=== PATIENT | female | born 1995 | race African-American/Black ===

== ENCOUNTER 2018-04-16 22:06 | Inpatient (IN) | payer OTHER ==
[2018-04-16] MEDS ORDERED: IBUPROFEN 200 MG TAB PO PRN (23:02)
[2018-04-16] MEDS ORDERED: ACETAMINOPHEN 500 MG TAB PO PRN (23:02)
[2018-04-16] MEDS ORDERED: DOCUSATE NA/SENNA CONC 1 TAB PO PRN (23:02)
[2018-04-16] MEDS ORDERED: Oxycodone HCl/Acetaminophen 1 TAB TAB PO PRN (23:02)
[2018-04-16 23:36] LABS: RPR Titer ND
[2018-04-16 23:46] LABS: Absolute Lymphocytes (CBC) 1.7 K/uL (0.7-4.9); Absolute Monocytes 0.3 K/uL (0.1-1.3); Absolute Neutrophil 7.1 K/uL (1.8-8.0); Basophils % 0.2 % (0-1.3); Eosinophils % 0.5 % (0-4.4); Hematocrit 31.5 % (36.0-45.0); Lymphocytes % 18.6 % (15.3-44.8); MCH 25.9 pg (27.0-35.0); MCV 79.2 fL (80-100); MPV 9.6 fL (7.6-11.3); Monocytes % 3.7 % (3.3-12.3); RBC Red Blood Cell Count 3.97 M/uL (3.86-4.86)
[2018-04-17] MEDS: Oxycodone HCl/Acetaminophen 1 TAB TAB PO PRN ×3 (00:30→21:38)
[2018-04-17 02:19] VITALS: BMI 33.3
--- NOTE | 2018-04-17 03:22 | PREOPHP ---
Date of Admission: 04/16/2018 This is a 23-year-old multiparous female, 5, para 4, 38 weeks gestation who was brought in by ambulance after a home delivery. Placenta was also delivered at home. Baby was in the 7-pound rang e male, is feeding right meal form of a formula bottle and doing quite well. The patient's lochia is normal. Inspection of the perineum shows just a very superficial tear in the mucosal tissue, but it is not even bleeding and requires no stitches. Her labs are all pending. Vital signs are all nirav l. She is alert and responsive. She will be admitted of course and pediatrics has been notified. S he knows the baby will probably have to stay 48 hours since it was a home delivery, but otherwise, alverto so is in no pain and having no problems at this time. Final Diagnosis: Intrauterine gestation, 38 weeks. Precipitous delivery, doing well. GARRISON/DIANE Voice ID: [id number]
[2018-04-17 22:21] LABS: RPR (Rapid Plasma Reagin) NON-REACT (NON-REACT)
--- NOTE | 2018-04-18 05:31 | DS ---
Hospital Course: Multiparous female, at 38 weeks' gestation, precipitous home delivery, brought to [facility] in an ambulance. Delivery of the placenta also had occurred. Inspection of the perin eum showed no lacerations worthy of suturing. Lochia was minimal. She is Rh positive. Rubella stat us is unknown at this point. We will get our office records and see. She will be dismissed either l tonia this evening or tomorrow morning to report back to my office in 6 weeks for followup, to report any temperature elevation of 100 degrees or greater, severe pain, heavy bleeding, or any other type o f abnormalities. She says she has already had her Tdap shot and flu shots. Final Diagnoses: Intrauterine gestation, 38 weeks. Precipitous delivery. GARRISON/DIANE Voice ID: [id number] Report ID: [id number]
[2018-04-18] MEDS: Oxycodone HCl/Acetaminophen 1 TAB TAB PO PRN (06:13)
[2018-04-18] MEDS ORDERED: MEASLES,MUMPS,RUBELLA VAC 0.5ML SUBQ ONE (10:23)
[2018-04-18 10:34] VITALS: BP 123/71; TEMP 98.1
[2018-04-20 03:50] LABS: HBsAG Nonreactive (Nonreactive)
== END 2018-04-18 12:20 | disposition home or self-care (01) | DRG 833 ==
LOC: L&D 22:06 → 2ND-WC 23:01
PROVIDERS: ADMIT Specialist; ATTEND Specialist
DX: O62.3 Precipitate labor (principal); Z3A.38 38 weeks gestation of pregnancy; Z37.0 Single live birth
CPT/HCPCS: 36415; 85025; 86592; 86762; 86901; 87340; 99218; G0433

== ENCOUNTER 2019-04-04 05:58 | Inpatient (IN) | payer OTHER ==
[2019-04-04] MEDS ORDERED: BUTORPHANOL 1 MG/ML INJ ONE (06:27)
[2019-04-04] MEDS ORDERED: PROMETHAZINE 25 MG/ML VIAL ONE (06:27)
[2019-04-04] MEDS ORDERED: OXYTOCIN/LR 20 UNIT/1,000 ML BAG IV ONE (06:43)
[2019-04-04] MEDS ORDERED: METHYLERGONOVINE 0.2MG/ML AMP IM ONE (06:43)
[2019-04-04] MEDS ORDERED: LIDOCAINE 1% MPF 30 ML VIAL ONE (06:46)
[2019-04-04] MEDS ORDERED: ONDANSETRON 4 MG (ODT) TAB PO PRN (06:55)
[2019-04-04] MEDS ORDERED: METHYLERGONOVINE 0.2MG/ML AMP IM PRN (06:55)
[2019-04-04] MEDS ORDERED: METHYLERGONOVINE 0.2 MG TAB PO PRN (06:55)
[2019-04-04] MEDS ORDERED: ACETAMINOPHEN 500 MG TAB PO PRN (06:55)
[2019-04-04] MEDS ORDERED: CARBOPROST TROME 250 MCG/ML IM PRN (06:55)
[2019-04-04] MEDS ORDERED: IBUPROFEN 200 MG TAB PO PRN (06:55)
[2019-04-04] MEDS ORDERED: Ringers Lactate 1,000 ML IV PRN (06:59)
[2019-04-04] MEDS ORDERED: OXYTOCIN/LR 20 UNIT/1,000 ML BAG IV SCH (07:00)
[2019-04-04] MEDS ORDERED: Ringers Lactate 1,000 ML IV SCH (07:00)
[2019-04-04 07:21] LABS: Absolute Lymphocytes (CBC) 2.4 K/uL (0.7-4.9); Basophils % 0.3 % (0-1.3); Hematocrit 31.4 % (36.0-45.0); Lymphocytes % 29.1 % (15.3-44.8); MPV 9.7 fL (7.6-11.3); RBC Red Blood Cell Count 4.02 M/uL (3.86-4.86)
[2019-04-04 12:08] VITALS: BMI 34.0
[2019-04-04] MEDS ORDERED: INFLUENZA VACCINE (for 3y+) 0.5 ML DOSE IMVAC ONE (15:00)
--- NOTE | 2019-04-04 19:27 | OP ---
Surgeon: Luis Miguel Wade MD Ms. Fernandes is a 24-year-old black female, approximately 37 weeks' gestation, followed by Dr. Gann during this . She is admitted at approximately 37+ weeks' gestation in active rapidly advancing labor, noted to be 4 cm, completely effaced on admission. First stage of labor was approximately a 45 minutes, second stage of labor 6 minutes. She delivered by spontaneous controlled vaginal delivery a 5 pounds 7 ounces female infant, Apgars 9 and 9. Cord around the neck x1. The was delivered vertex OA over an intact perineum. After delayed cord clamping, cord was clamped, cut, and the infant placed on mother's upper abdomen. Cord blood was obtained. Placenta was spontaneously expelled and appeared to be intact. Estimated total blood loss was less than 300 cc. She tolerated all procedures well. Received 1 mg Stadol , 12.5 mg of Phenergan IV for analgesia prior to delivery. She was given 1 dose of Methergine IM postdelivery because of grand multiparity and rapid labor. ADELE/DIANE Voice ID: [id number] Report ID: [id number] MTDD
[2019-04-05 02:40] LABS: RPR (Rapid Plasma Reagin) NON-REACT (NON-REACT)
[2019-04-05 07:25] VITALS: BP 109/58; TEMP 98
[2019-04-05] MEDS ORDERED: Tdap (Diph,Pertuss(Acell),Tet Vac) 0.5 ML SYR IMVAC ONE (07:42)
--- NOTE | 2019-04-05 08:25 | PREOPHP ---
Date of Admission: 04/04/2019 Ms. Fernandes is a 30-year-old black female, 5, para 4-0-0-4, followed by Dr. Gann during this with no apparent problems, who is now at approximately 37+ weeks gestation. She presents with contractions since 3 o'clock. She denies any significant bleeding or gross rupture of membranes . Past Medical History: Please see record. Family History: Please see record. Review of Systems: She reports no recent, cough, cold, fever, or chills. No recent nausea or vomiting. No urine or bow el issues. has been active. Physical Examination: General: Reveals a black female in moderate discomfort. Neck: Supple without adenopathy or thyromegaly. Lungs: Clear. Cardiac: Regular rate and rhythm without murmurs. Breasts: Not examined. Abdomen: Estimated weight 6 plus 7 pounds. Pelvic: Cervix noted to be approximately 4 cm, com pletely effaced, vertex presentation. Extremities: 1+ lower extremity edema. Impression: Term , active labor. Plan: The patient admitted for delivery. Prefers IV analgesia during her labor course. ADELE/DIANE Voice ID: [id number]
[2019-04-05] MEDS ORDERED: INFLUENZA VACCINE (for 3y+) 0.5 ML DOSE IMVAC ONE (09:00)
--- NOTE | 2019-04-06 04:47 | DS ---
Date of Discharge: 04/05/2019 Final Hospital Discharge Diagnoses: 1.37+ week , delivered, grand multiparity. 2.Iron deficiency anemia. Complications: None. Procedures: Spontaneous controlled vaginal delivery of viable male . Hospital Course: The patient is a 24-year-old black female, 6, para 4-0-1-4 at 37+ weeks ges tation, who had an uneventful labor and delivery of a 5-pound 7-ounce male . She was dismissed on the first day, ambulatory, on a select diet with routine post vaginal delivery activit y restrictions, to continue taking her vitamins. She had an admission hemoglobin and hemato crit 10.3 and 31.4, nonreactive RPR, is Rh positive blood type. She was dismissed with the usual pos t vaginal delivery activity restrictions. ADELE/DIANE Voice ID: [id number] Report ID: [id number]
[2019-04-09 06:13] LABS: HBsAG Nonreactive (Nonreactive)
== END 2019-04-05 11:45 | disposition home or self-care (01) | DRG 807 ==
LOC: L&D 05:58 → 2ND-WC 06:38
PROVIDERS: ADMIT Specialist; ATTEND Specialist
PROC: 10E0XZZ Delivery of Products of Conception, External Approach (ICD-10-PCS; principal; 2019-04-04)
DX: O69.81X0 Labor and delivery complicated by cord around neck, without compression, not applicable or unspecified (principal); Z37.0 Single live birth; O99.02 Anemia complicating childbirth; D50.9 Iron deficiency anemia, unspecified; Z3A.37 37 weeks gestation of pregnancy
CPT/HCPCS: 36415; 85014; 85025; 86592; 86901; 87340; 90471; 90715; J0595; J2210; J2550; J2590; Q2035

== ENCOUNTER 2019-08-08 12:55 | Emergency (ER) | payer OTHER, SELFPAY ==
--- OUTSIDE RECORDS SUMMARY | 2019-08-08 12:57 | XMS REPORT ---
:1995 [facility] Address [address] [place] [address] [address]. H[address] [place] [address] Care Team Providers Name Role Phone Unavailable Unavailable Unavailable Problems This patient has no known problems. Allergies, Adverse Reactions, Alerts This patient has no known allergies or adverse reactions. Medications This patient has no known medications.
--- NOTE | 2019-08-08 13:57 | EDPHYS ---
Physician Documentation [facility] Name: Anisa Fernandes Age: 24 yrs Sex: Female : 1995 Arrival Date: 08/08/2019 Time: 12:57 Bed 11 Private MD: None, None ED Physician Raul Whitley HPI: 08/08 13:57 This 24 yrs old Black Female presents to ER via Ambulatory with complaints of Insect kb Bite. 13:57 The patient has not experienced similar symptoms in the past. The patient has not kb recently seen a physician. 13:57 The patient presents with an abscess of the anterior aspect of left shoulder. kb Description: erythematous, swollen. Onset: The symptoms/episode began/occurred 3 day(s) ago. Possible cause(s): spider bite. Associated signs and symptoms: Pertinent positives: erythema, swelling. Modifying factors: the symptoms are alleviated by nothing, the symptoms are aggravated by nothing. Severity of symptoms: At their worst the symptoms were mild, in the emergency department the symptoms are unchanged. 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 - Coronavirus screen:: The patient has NOT traveled to [place], [place], or [place] in the past 14 days. The patient has NOT had contact with known/suspected case of Coronavirus?. - Social history:: Smoking status: Patient reports the use of cigarette tobacco products, denies chronic smoking, but will smoke occasionally. - Ebola Screening: : Patient negative for fever greater than or equal to 101.5 degrees Fahrenheit, and additional compatible Ebola Virus Disease symptoms Patient denies exposure to infectious person Patient denies travel to an Ebola-affected area in the 21 days before illness onset No symptoms or risks identified at this time. ROS: 13:54 Constitutional: Negative for fever, chills, and weight loss, Cardiovascular: Negative kb for chest pain, palpitations, and edema, Respiratory: Negative for shortness of breath, cough, wheezing, and pleuritic chest pain, Abdomen/GI: Negative for abdominal pain, nausea, vomiting, diarrhea, and constipation, Back: Negative for injury and pain, MS/Extremity: Negative for injury and deformity, Neuro: Negative for headache, weakness, numbness, tingling, and seizure. 13:54 Skin: Positive for abscess, of the anterior aspect of left shoulder. Exam: 13:56 Constitutional: This is a well developed, well nourished patient who is awake, alert, kb and in no acute distress. Head/Face: Normocephalic, atraumatic. Neck: Trachea midline, no thyromegaly or masses palpated, and no cervical lymphadenopathy. Supple, full range of motion without nuchal rigidity, or vertebral point tenderness. No Meningismus. Chest/axilla: Normal chest wall appearance and motion. Nontender with no deformity. No lesions are appreciated. Cardiovascular: Regular rate and rhythm with a normal S1 and S2. No gallops, murmurs, or rubs. Normal PMI, no JVD. No pulse deficits. Respiratory: Lungs have equal breath sounds bilaterally, clear to auscultation and percussion. No rales, rhonchi or wheezes noted. No increased work of breathing, no retractions or nasal flaring. Abdomen/GI: Soft, non-tender, with normal bowel sounds. No distension or tympany. No guarding or rebound. No evidence of tenderness throughout. MS/ Extremity: Pulses equal, no cyanosis. Neurovascular intact. Full, normal range of motion. Neuro: Awake and alert, GCS 15, oriented to person, place, time, and situation. Cranial nerves II-XII grossly intact. Motor strength 5/5 in all extremities. Sensory grossly intact. Cerebellar exam normal. Normal gait. 13:56 Skin: abscess, that is small, of the anterior aspect of left shoulder, with induration. Vital Signs: 13:24 BP 129 / 82; Pulse 66; Resp 18 S; Temp 98.4(O); Pulse Ox 100% on R/A; Weight 77.11 kg ca1 (R); Height 5 ft. 4 in. (162.56 cm) (R); Pain 4/10; 13:24 Body Mass Index 29.18 (77.11 kg, 162.56 cm) ca1 MDM: 13:27 Patient medically screened. kb 13:54 Differential diagnosis: abscess, cellulitis, insect bite. Data reviewed: vital signs, kb nurses notes. Data interpreted: Pulse oximetry: on room air is 100 %. Interpretation: normal. Counseling: I had a detailed discussion with the patient and/or guardian regarding: the historical points, exam findings, and any diagnostic results supporting the discharge/admit diagnosis, the need for outpatient follow up, a family practitioner, to return to the emergency department if symptoms worsen or persist or if there are any questions or concerns that arise at home. Administered Medications: 14:15 Drug: Bactrim (160 mg-800 mg (DS) 1 tablet Route: PO; ss 14:15 Follow up: Response: Medication administered at discharge. Disposition: 15:54 Co-signature as Attending Physician, Raul Whitley MD. rn Disposition: 08/08/19 13:58 Discharged to Home. Impression: Cutaneous abscess of left upper limb. - Condition is Stable. - Discharge Instructions: Skin Abscess, [id number]. - Prescriptions for Bactrim DS 800- 160 mg Oral Tablet - take 1 tablet by ORAL route every 12 hours for 7 days; 14 tablet. - Medication Reconciliation Form, Thank You Letter, Antibiotic Education, Prescription Opioid Use form. - Follow up: Private Physician; When: 2 - 3 days; Reason: Recheck today's complaints, Continuance of care, Re-evaluation by your physician. Follow up: Emergency Department; When: As needed; Reason: Worsening of condition. Signatures: Carrie Fernandes, [employer] Raul Whitley MD MD rn Smirch, Shelby, RN RN ss Acob, Cheryl, RN RN [facility] Corrections: (The following items were deleted from the chart) 14:16 13:58 08/08/2019 13:58 Discharged to Home. Impression: Cutaneous abscess of left upper ss limb. Condition is Stable. Forms are Medication Reconciliation Form, Thank You Letter, Antibiotic Education, Prescription Opioid Use. Follow up: Private Physician; When: 2 - 3 days; Reason: Recheck today's complaints, Continuance of care, Re-evaluation by your physician. Follow up: Emergency Department; When: As needed; Reason: Worsening of condition. kb
--- NOTE | 2019-08-08 13:57 | ER ---
Nurse's Notes [facility] Name: Anisa Fernandes Age: 24 yrs Sex: Female : 1995 Arrival Date: 08/08/2019 Time: 12:57 Bed 11 Private MD: None, None Diagnosis: Cutaneous abscess of left upper limb Presentation: 08/08 13:21 Presenting complaint: Patient states: Spider bite on my L upper arm a few days ago. Now ca1 it's throbbing and looks like it is infected. Denies fever. Transition of care: patient was not received from another setting of care. Onset of symptoms was August 08, 2019. Risk Assessment: Do you want to hurt yourself or someone else? Patient reports no desire to harm self or others. Initial Sepsis Screen: Does the patient meet any 2 criteria? No. Patient's initial sepsis screen is negative. Does the patient have a suspected source of infection? No. Patient's initial sepsis screen is negative. Care prior to arrival: None. 13:21 Method Of Arrival: Ambulatory ca1 13:21 Acuity: EDWIN 4 ca1 SOUND PERSON: 13:24 LMP 08/06/2019 ca1 Historical: - Allergies: 13:24 No Known Allergies; ca1 - Home Meds: 13:24 None [Active]; ca1 - PMHx: 13:24 None; ca1 - PSHx: 13:24 Tubal ligation; ca1 - Immunization history:: Adult Immunizations up to date, Last tetanus immunization: unknown. - Coronavirus screen:: The patient has NOT traveled to [place], [place], or [place] in the past 14 days. The patient has NOT had contact with known/suspected case of Coronavirus?. - Social history:: Smoking status: Patient reports the use of cigarette tobacco products, denies chronic smoking, but will smoke occasionally. - Ebola Screening: : Patient negative for fever greater than or equal to 101.5 degrees Fahrenheit, and additional compatible Ebola Virus Disease symptoms Patient denies exposure to infectious person Patient denies travel to an Ebola-affected area in the 21 days before illness onset No symptoms or risks identified at this time. Screenin:45 Abuse screen: Denies threats or abuse. Denies injuries from another. Nutritional ss screening: No deficits noted. Tuberculosis screening: Never had TB. Fall Risk None identified. Assessment: 13:45 General: Appears in no apparent distress. comfortable, Behavior is calm, cooperative. ss Pain: Complains of pain in anterior aspect of left shoulder Pain currently is 4 out of 10 on a pain scale. Quality of pain is described as tender. Neuro: Level of Consciousness is awake, alert. Respiratory: Airway is patent Respiratory effort is even, unlabored, Respiratory pattern is regular, symmetrical. GI: Patient currently denies diarrhea, nausea, vomiting. EENT: Nares Oral mucosa is moist. Throat is clear. Derm: Skin is intact, is healthy with good turgor, Skin is dry, Skin is pink, warm \T\ dry. normal. Musculoskeletal: Circulation, motion, and sensation intact. Range of motion: intact in all extremities, Swelling absent. Vital Signs: 13:24 BP 129 / 82; Pulse 66; Resp 18 S; Temp 98.4(O); Pulse Ox 100% on R/A; Weight 77.11 kg ca1 (R); Height 5 ft. 4 in. (162.56 cm) (R); Pain 4/10; 13:24 Body Mass Index 29.18 (77.11 kg, 162.56 cm) ca1 ED Course: 12:57 Patient arrived in ED. ag5 12:57 None, None is Private Physician. ag5 13:23 Triage completed. ca1 13:24 Arm band placed on right wrist. ca1 13:27 Carrei Fernandes FNP-C [facility]. kb 13:27 Raul Whitley MD is Attending Physician. kb 13:45 Patient has correct armband on for positive identification. Bed in low position. Call ss light in reach. 14:05 Ally Torres, WILDER is Primary Nurse. ss 14:15 No provider procedures requiring assistance completed. Patient did not have IV access ss during this emergency room visit. Administered Medications: 14:15 Drug: Bactrim (160 mg-800 mg (DS) 1 tablet Route: PO; ss 14:15 Follow up: Response: Medication administered at discharge. ss Outcome: 13:58 Discharge ordered by . kb 14:15 Discharged to home ambulatory. ss 14:15 Condition: good 14:15 Discharge instructions given to patient, Instructed on discharge instructions, follow up and referral plans. medication usage, Demonstrated understanding of instructions, follow-up care, medications, Prescriptions given X 1. 14:16 Patient left the ED. ss Signatures: Carrie Fernandes FNP-C [employer]-Ckb Ally Torres, RN RN ss AcHannah klein, RN RN ca1 Edie Ascencio ag5
[2019-08-08] MEDS ORDERED: SMZ./TMP. 800/160 MG TABLET ONE (14:10)
[2019-08-08 17:46] VITALS: BP 129/82; TEMP 98.4; O2SAT 100
== END 2019-08-08 14:16 | disposition home or self-care (01) ==
LOC: ER 12:55
DX: L02.414 Cutaneous abscess of left upper limb (principal)
CPT/HCPCS: 99283

== ENCOUNTER 2020-08-02 00:43 | Emergency (ER) | payer SELFPAY ==
--- OUTSIDE RECORDS SUMMARY | 2020-08-02 00:45 | XMS REPORT | Continuity of Care Document ---
:1995 Author Organization [facility] t Address [address] [place] [address] Care Team Providers Name Role Phone 1, Sleep Lab Bed Attending Clinician Unavailable Doctor Unassigned, Name Attending Clinician Unavailable Problems This patient has no known problems. Allergies, Adverse Reactions, Alerts This patient has no known allergies or adverse reactions. Medications This patient has no known medications. Procedures This patient has no known procedures. Encounters Start End Encounter Admission Attending Care Care Encounter Source Date/Time Date/Time Type Type Clinicians Facility Department ID 2019-02-06 2019-02-06 Telecommunication Tower Technician 1, Gray [facility] [id number] 14:31:28 17:01:28 Visit Sleep Lab [place] [id number] [facility] [id number] [place] [id number] 2019-02-06 2019-02-06 Orders Doctor REJI [id number] 00:00:00 00:00:00 Only Unassigned, ELE[place] [id number] [place] [facility] [id number] Results This patient has no known results.
[2020-08-02] MEDS ORDERED: IBUPROFEN 400 MG TAB ONE (04:11)
--- NOTE | 2020-08-02 04:25 | ER ---
Nurse's Notes [facility] Name: Anisa Fernandes Age: 25 yrs Sex: Female : 1995 Arrival Date: 08/02/2020 Time: 00:47 Bed 26 Private MD: Diagnosis: Dental caries;Tinea pedis Presentation: 08/02 01:34 Chief complaint: Patient states: Reports pain to wisdom teeth, "All of my wisdom teeth lp1 are bad", pain for the past 2 weeks; states headache due to jaw pain; Reports fungus to bilateral feet, itching and burning to skin; Denies any fever. Ebola Screen: No symptoms or risks identified at this time. Risk Assessment: Do you want to hurt yourself or someone else? Patient reports no desire to harm self or others. Onset of symptoms was August 02, 2020. 01:34 Method Of Arrival: Ambulatory lp1 01:34 Acuity: EDWIN 4 lp1 01:38 Coronavirus screen: Client denies travel out of the [place] in the last 14 days. At this lp1 time, the client does not indicate any symptoms associated with coronavirus-19. Initial Sepsis Screen: Does the patient meet any 2 criteria? No. Patient's initial sepsis screen is negative. Does the patient have a suspected source of infection? No. Patient's initial sepsis screen is negative. 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 - Social history:: Smoking status: Patient reports the use of cigarette tobacco products, denies chronic smoking, but will smoke occasionally. Screenin:38 Abuse screen: Denies threats or abuse. Denies injuries from another. Nutritional lp1 screening: No deficits noted. Tuberculosis screening: No symptoms or risk factors identified. Fall Risk None identified. Assessment: 03:02 General: Appears in no apparent distress. Behavior is calm, cooperative, appropriate fu for age, Denies fever, feeling ill, fatigue, chills. Pain: Complains of pain in jaw Pain does not radiate. Pain currently is 9 out of 10 on a pain scale. Quality of pain is described as aching, Pain began about 2 weeks ago Noted to be guarding. Neuro: Level of Consciousness is awake, alert, obeys commands, Oriented to person, place, time, situation, [employer] are equal bilaterally Moves all extremities. Gait is steady, Speech is normal, Facial symmetry appears normal. Cardiovascular: Denies chest pain, nausea, vomiting. Respiratory: Airway is patent Respiratory effort is even, unlabored, Respiratory pattern is regular. GI: Patient currently denies diarrhea, nausea, vomiting. EENT: Reports pain in right jaw and left jaw Pain is 9 out of 10 on a pain scale. since 2 weeks ago. Derm: Reports peeling, itching and burning between toes of both feet. Musculoskeletal: No signs and/or symptoms reported regarding the musculoskeletal system. 04:10 Reassessment: Patient appears in no apparent distress at this time. Patient and/or fu family updated on plan of care and expected duration. Pain level reassessed. Patient is alert, oriented x 3, equal unlabored respirations, skin warm/dry/pink. Vital Signs: 01:38 BP 120 / 72; Pulse 69; Resp 16; Temp 97.9(TE); Pulse Ox 100% on R/A; Weight 77.11 kg lp1 (R); Height 5 ft. 4 in. (162.56 cm); Pain 9/10; 03:08 BP 122 / 87; Pulse 63; Resp 18; Temp 98.4(O); Pulse Ox 100% on R/A; Pain 9/10; fu 04:00 BP 115 / 84; Pulse 62; Resp 18; Pulse Ox 100% on R/A; fu 01:38 Body Mass Index 29.18 (77.11 kg, 162.56 cm) lp1 ED Course: 00:47 Patient arrived in ED. es 01:37 Triage completed. lp1 01:37 Arm band placed on. lp1 02:53 Bo Victoria, WILDER is Primary Nurse. fu 02:55 Eric Lawrence MD is Attending Physician. 7 03:09 Patient has correct armband on for positive identification. Pulse ox on. NIBP on. fu 03:09 Warm blanket given. fu 04:23 Juan Brown DDS is Referral Physician. 7 04:24 Luis Miguel Montalvo DPM is Referral Physician. [facility] 04:35 No provider procedures requiring assistance completed. fu 04:35 Patient did not have IV access during this emergency room visit. fu Administered Medications: 04:00 Drug: Ibuprofen 800 mg Route: PO; fu 04:36 Follow up: Response: Pain is decreased fu Outcome: 04:24 Discharge ordered by . [facility] 04:35 Discharged to home ambulatory. fu 04:35 Condition: good 04:35 Discharge instructions given to patient, Instructed on discharge instructions, follow up and referral plans. Demonstrated understanding of instructions, follow-up care, medications, Prescriptions given X 3. 04:37 Patient left the ED. fu Signatures: [place] Lovell Laura, RN RN 1 Bo Victoria RN RN fu Eric Lawrence MD MD [facility]
--- NOTE | 2020-08-02 04:25 | EDPHYS ---
Physician Documentation [facility] Name: Anisa Fernandes Age: 25 yrs Sex: Female : 1995 Arrival Date: 08/02/2020 Time: 00:47 Bed 26 Private MD: ED Physician Eric Lawrence HPI: 08/02 04:14 This 25 yrs old Black Female presents to ER via Ambulatory with complaints of Toothache.mh7 04:14 The patient presents with pain. The problem is located in the right lower tooth. mh7 04:15 Onset: The symptoms/episode began/occurred 2 week(s) ago. Duration: The symptoms are mh7 continuous, and are unchanged since they started. Modifying factors: The symptoms are alleviated by nothing, the symptoms are aggravated by cold fluids. Associated signs and symptoms: Pertinent positives: pain, Pertinent negatives: anorexia, chills, dysphagia, fever, inability to eat, nausea, redness in area, swelling, vomiting. Severity of symptoms: At their worst the symptoms were moderate, 7 day(s) ago, in the emergency department the symptoms are unchanged. Also complains of itching fungal infection between toes of both feet for 3-4 weeks.. 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 - Social history:: Smoking status: Patient reports the use of cigarette tobacco products, denies chronic smoking, but will smoke occasionally. ROS: 04:15 Constitutional: Negative for fever, chills, and weight loss, Eyes: Negative for injury, mh7 pain, redness, and discharge, Neck: Negative for injury, pain, and swelling, Cardiovascular: Negative for chest pain, palpitations, and edema, Respiratory: Negative for shortness of breath, cough, wheezing, and pleuritic chest pain, Abdomen/GI: Negative for abdominal pain, nausea, vomiting, diarrhea, and constipation, Back: Negative for injury and pain, : Negative for injury, bleeding, discharge, and swelling, Neuro: Negative for headache, weakness, numbness, tingling, and seizure, Psych: Negative for depression, anxiety, suicide ideation, homicidal ideation, and hallucinations, Allergy/Immunology: Negative for hives, rash, and allergies, Endocrine: Negative for neck swelling, polydipsia, polyuria, polyphagia, and marked weight changes, Hematologic/Lymphatic: Negative for swollen nodes, abnormal bleeding, and unusual bruising. Exam: 04:15 Constitutional: This is a well developed, well nourished patient who is awake, alert, mh7 and in no acute distress. Head/Face: Normocephalic, atraumatic. 04:15 Neck: Trachea midline, no thyromegaly or masses palpated, and no cervical lymphadenopathy. Supple, full range of motion without nuchal rigidity, or vertebral point tenderness. No Meningismus. Chest/axilla: Normal chest wall appearance and motion. Nontender with no deformity. No lesions are appreciated. Cardiovascular: Regular rate and rhythm with a normal S1 and S2. No gallops, murmurs, or rubs. Normal PMI, no JVD. No pulse deficits. Respiratory: Lungs have equal breath sounds bilaterally, clear to auscultation and percussion. No rales, rhonchi or wheezes noted. No increased work of breathing, no retractions or nasal flaring. Abdomen/GI: Soft, non-tender, with normal bowel sounds. No distension or tympany. No guarding or rebound. No evidence of tenderness throughout. Back: No spinal tenderness. No costovertebral tenderness. Full range of motion. 04:15 MS/ Extremity: Pulses equal, no cyanosis. Neurovascular intact. Full, normal range of motion. 04:15 Skin: Warm, dry with normal turgor. Normal color with no rashes, no lesions, and no evidence of cellulitis. Neuro: Awake and alert, GCS 15, oriented to person, place, time, and situation. Cranial nerves II-XII grossly intact. Motor strength 5/5 in all extremities. Sensory grossly intact. Cerebellar exam normal. Normal gait. Psych: Awake, alert, with orientation to person, place and time. Behavior, mood, and affect are within normal limits. 04:15 ENT: External ear(s): are unremarkable, Ear canal(s): are normal, clear, TM's: are normal, Nose: is normal, Mouth: is normal, Posterior pharynx: is normal, airway is patent, Dental exam: dental caries, that is moderate, diffusely, pain, that is moderate, specifically in the lower right third molar (#32), Voice: is normal, Breath odor: is normal. 04:15 Musculoskeletal/extremity: scaling, maceration, fissuring between toes of both feet right greater than left.. Vital Signs: 01:38 BP 120 / 72; Pulse 69; Resp 16; Temp 97.9(TE); Pulse Ox 100% on R/A; Weight 77.11 kg lp1 (R); Height 5 ft. 4 in. (162.56 cm); Pain 9/10; 03:08 BP 122 / 87; Pulse 63; Resp 18; Temp 98.4(O); Pulse Ox 100% on R/A; Pain 9/10; fu 04:00 BP 115 / 84; Pulse 62; Resp 18; Pulse Ox 100% on R/A; fu 01:38 Body Mass Index 29.18 (77.11 kg, 162.56 cm) lp1 MDM: 04:15 Differential diagnosis: dental caries, gingivitis, dental abscess, pericoronitis, mh7 aphthous ulcers, acute necrotizing ulcerative gingivitis, gingivostomatitis. Data reviewed: vital signs, nurses notes. Data interpreted: Pulse oximetry: on room air is 100 %. Interpretation: normal. 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 Response to treatment: the patient's symptoms have markedly improved after treatment. 04:24 Patient medically screened. [facility] Administered Medications: 04:00 Drug: Ibuprofen 800 mg Route: PO; fu 04:36 Follow up: Response: Pain is decreased fu Disposition: 08/02/20 04:24 Discharged to Home. Impression: Dental caries, Tinea pedis. - Condition is Stable. - Discharge Instructions: Athlete's Foot, Xsll-sz-Palv, Dental Pain, Ayfp-lo-Wcwa, Dental Caries, Jdzr-bx-Bxhz. - Prescriptions for Amoxicillin 500 mg Oral Capsule - take 1 capsule by ORAL route every 8 hours for 10 days; 30 tablet. Clotrimazole 1 % Topical Cream - Apply to affected area 1 application by TOPICAL route every 12 hours; 15 gram. Ibuprofen 800 mg Oral Tablet - take 1 tablet by ORAL route every 8 hours As needed take with food; 15 tablet. - Medication Reconciliation Form, Thank You Letter, Antibiotic Education, Prescription Opioid Use form. - Follow up: Juan Brown DDS; When: 1 - 2 days; Reason: Worsening of condition, Recheck today's complaints. Follow up: Luis Miguel Montalvo DPM; When: 1 - 2 days; Reason: Worsening of condition, Recheck today's complaints. - Problem is an ongoing problem. - Symptoms have improved. Signatures: Celia Flores RN RN lp1 Bo Victoria RN RN Eric Macedo MD MD mh7 Corrections: (The following items were deleted from the chart) 04:37 04:24 08/02/2020 04:24 Discharged to Home. Impression: Dental caries; Tinea pedis. fu Condition is Stable. Forms are Medication Reconciliation Form, Thank You Letter, Antibiotic Education, Prescription Opioid Use. Follow up: Juan Brown; When: 1 - 2 days; Reason: Worsening of condition, Recheck today's complaints. Follow up: Luis Miguel Montalvo; When: 1 - 2 days; Reason: Worsening of condition, Recheck today's complaints. Problem is an ongoing problem. Symptoms have improved. mh7
[2020-08-02 04:41] VITALS: O2SAT 100
[2020-08-02 04:43] VITALS: TEMP 98.4
[2020-08-02 04:44] VITALS: BP 115/84
== END 2020-08-02 04:37 | disposition home or self-care (01) ==
LOC: ER 00:43
DX: K02.9 Dental caries, unspecified (principal); B35.3 Tinea pedis; F17.210 Nicotine dependence, cigarettes, uncomplicated
CPT/HCPCS: 99283

== ENCOUNTER 2022-01-30 22:18 | Emergency (ER) | payer SELFPAY ==
--- OUTSIDE RECORDS SUMMARY | 2022-01-30 22:21 | XMS REPORT | Continuity of Care Document ---
:1995 Author Organization [facility] t Address [address] [place] [address] Care Team Providers Name Role Phone Pcp, Does Not Have A Primary Care Physician Sam CAREY Attending Clinician Doctor Unassigned, Name Attending Clinician Unavailable Baldomero TAYLOR Attending Clinician Unavailable YE Attending Clinician Unavailable 1, Sleep Lab Bed Attending Clinician Unavailable Mar Clark Attending Clinician Payers Payer Name Policy Type Policy Number Effective Date Expiration Date [facility] [id number] 2019 [facility] MEDICAID 00:00:00 Problems Condition Condition Condition Status Onset Resolution Last Treating Co mments Source Name Details Category Date Date Treatment Clinician Date Obesity Obesity Disease Active 2018-07 Univers (BMI (BMI 1-21 ity of 30-39.9) 30-39.9) 00:00: [place] [address] Medical Branch Multiparou Multiparou Disease Active 2018-07 U nivers s s 1-20 ity of 00:00: [place] [address] Medical Branch Encounter Encounter Disease Active 2018-07 Overview: Univers for for 07-10 Formattin ity of sterilizat sterilizat 00:00: g of this [place] ion ion 00 note Medical might be Branch different from the original. Added automatic ally from request for surgery [id number] Allergies, Adverse Reactions, Alerts Allergy Allergy Status Severity Reaction(s) Onset Inactive Treating Comm ents Source Name Type Date Date Clinician NO KNOWN Drug Active [facility] ALLERGIE Class ity of S [facility] Social History Social Habit Start Date Stop Date Quantity Comments Source History of tobacco Cigarette Smoker University of use [facility] History SDOH University o f [facility] SDOH University o f Alcohol Std Drinks [place] [facility] Branch History SDOH University o f Alcohol Binge [facility] Branch Exposure to Not sure University of SARS-CoV-2 (event) [facility] Alcohol intake 2021-04-10 2021-04-10 Current drinker Unive rsity of 00:00:00 00:00:00 of alcohol [place] Medical (finding) Branch Alcohol Comment 2019-05-29 2019-05-29 Occasional Universit y of 00:00:00 00:00:00 [facility] Cigarettes smoked 2019-05-03 2019-05-03 [facility] ity of current (pack per 00:00:00 00:00:00 [facility] ) - Reported Branch Tobacco use and 2019-05-03 2019-05-03 Never used Universit y of exposure 00:00:00 00:00:00 [facility] Sex Ass[birth year] Universit y of 00:00:00 00:00:00 [facility] Smoking Status Start Date Stop Date Source Unknown if ever smoked [facility] Heavy tobacco smoker 2019-05-03 00:00:00 [facility] Medications Ordered Filled Start Stop Current Ordering Indication Dosage Frequency Signature Comments Components Source Medication Medication Date Date Medication? Clinician (SIG) Name Name dexamethaso 2020-07 No 10mg 10 mg, Uni vers ne 04-10 Intramuscu ity of (DECADRON 00:00: 23:18 lar, ONCE, [place] PHOSPHATE) 00 :00 1 dose, On Med ical injection [facility] Branch 10 mg 04/10/21 at 1900, STAT ketorolac 2020-07 No 60mg 60 mg, Unive rs (TORADOL) 04-10 Intramuscu ity of injection 00:00: 23:18 lar, ONCE, [place] 60 mg 00 :00 1 dose, On Medical Sat Branch 04/10/21 at 1900, REGGIE
Fa culty member approving Restricted medication : EMERGENCY ROOM, ibuprofen 2020-07 Yes [id number] 800mg Take 1 Univers 800 mg 0-02 tablet by ity of tablet 00:00: mouth [place] 00 every 8 Medical (eight) Branch hours as needed for Pain (scale 4-6). methocarbam 2020-07 Yes [id number] 750mg Take 1 Univers oL 750 mg 0-02 tablet by ity o f tablet 00:00: mouth 4 [place] 00 (four) Medical times Branch daily as needed for Pain (scale 7-10). predniSONE 2020-07- No [id number] 40mg Take 2 Univers 20 mg 0-02 10-08 tablets by ity of tablet 00:00: 04:59 mouth [place] 00 :00 daily for Medical 5 days. Branch ibuprofen 2018-07 Yes [id number] 800mg Take 1 Univers 800 mg 1-21 tablet by ity of tablet 00:00: mouth [place] 00 every 6 Medical (six) Branch hours as needed for Pain (scale 4-6). HYDROcodone 2018-07 Yes [id number] 1{tbl} Take 1 Univers -acetaminop 1-21 tablet by ity of hen 5-325 00:00: mouth [place] mg tablet 00 every 6 Medical (six) Branch hours as needed for Pain (scale 7-10). ibuprofen 2018-07 Yes [id number] 800mg Take 1 Univers 800 mg 1-21 tablet by ity of tablet 00:00: mouth [place] 00 every 6 Medical (six) Branch hours as needed for Pain (scale 4-6). HYDROcodone 2018-07 Yes [id number] 1{tbl} Take 1 Univers -acetaminop 1-21 tablet by ity of hen 5-325 00:00: mouth [place] mg tablet 00 every 6 Medical (six) Branch hours as needed for Pain (scale 7-10). 2014-07 Yes 1{tbl} Take 1 Tab U nivers multivitami 1-06 by mouth ity of n ( [place] VITAMIN[place] 00 Medical tablet Branch 2014-07 Yes 1{tbl} Take 1 Tab U nivers multivitami 1-06 by mouth ity of n ( [place] VITAMIN) 00 Medical tablet Branch Vital Signs Vital Name Observation Time Observation Value Comments Source Systolic blood 2021-04-10 23:26:49 138 mm[Hg] Univer sity of pressure [facility] Diastolic blood 2021-04-10 23:26:49 98 mm[Hg] Unive rsity of pressure [facility] Heart rate 2021-04-10 23:26:49 86 /min Universi ty [facility] Body temperature 2021-04-10 23:26:49 36.28 [facility] Respiratory rate 2021-04-10 23:26:49 16 /min [facility] Body weight 2021-04-10 22:39:00 81.647 kg Universi ty [facility] BMI 2021-04-10 22:39:00 30.42 kg/m2 [facility] Oxygen saturation in 2021-04-10 22:39:00 100 /min [facility] Arterial blood by [facility] [place] Pulse oximetry Branch BP Systolic 2022-01-18 13:24:00 114 mm[Hg] BP Diastolic 2022-01-18 13:24:00 84 mm[Hg] Weight Measured 2022-01-18 13:24:00 182.40 pounds Height Measured 2022-01-18 13:24:00 64.01 inches Body Temperature 2022-01-18 13:24:00 98.40 degrees Heart Rate 2022-01-18 13:24:00 67.00 /min Respiratory Rate 2022-01-18 13:24:00 24.00 /min BP Systolic 2018-08-17 11:54:00 110 mm[Hg] BP Diastolic 2018-08-17 11:54:00 56 mm[Hg] Weight Measured 2018-08-17 11:54:00 177.00 pounds Height Measured 2018-08-17 11:54:00 64.01 inches Body Temperature 2018-08-17 11:54:00 98.30 degrees Heart Rate 2018-08-17 11:54:00 85.00 /min Respiratory Rate 2018-08-17 11:54:00 16.00 /min Procedures Procedure Date / Time Performed Performing Clinician [facility] e NOTICE OF PRIVACY 2021-04-10 22:30:00 Doctor Unassigned, No [facility] Name Medical [facility] CONSENT/REFUSAL FOR 2021-04-10 22:29:42 Doctor Unassigned, No [facility] DIAGNOSIS AND Name Medical [facility] TREATMENT SLEEP STUDY DATA 2019-02-06 05:01:00 Doctor Pako, No Unive [facility] [place] REPORT Name [facility] Plan of Care Planned Activity Planned Date Details Comments Source Goal Plan of Care Note [code = 10648-8] Goal Plan of Care Note [code = 49103-5] Goal Plan of Care Note [code = 91232-8] Goal Plan of Care Note [code = 03725-5] Goal Plan of Care Note [code = 51543-3] Goal Plan of Care Note [code = 96717-7] Goal Plan of Care Note [code = 58855-3] Goal Plan of Care Note [code = 09247-2] Goal Plan of Care Note [code = 98780-0] Encounters Start End Encounter Admission Attending Care Care Encounter Source Date/Time Date/Time Type Type Clinicians Facility Department ID 2021-05-11 Emergency [facility] [id number] Univers 03:20:38 ity of [facility] 2022-01-18 2022-01-18 Outpatient [id number] 00:00:00 00:00:00 Visit [id number] 2021-04-10 2021-04-10 [facility] [id number] Univers 17:40:00 20:56:00 Eda Keenan [id number] i ty of [place] 4.2.7.2.686 [facility] [id number] [facility] 084 Branch 2021-04-10 2021-04-10 Orders Doctor MENDOZA [id number] Univers 00:00:00 00:00:00 Only Unassigned, ELENA [id number] ity of [place] [facility] [id number] [place] [address] [id number] [facility] 009 Branch 2020-10-14 2020-10-14 Outpatient Baldomero TAYLOR [facility] [id number] Univers 09:00:00 09:00:00 TRISH [id number] ity o f [facility] 2020-10-13 2020-10-13 Outpatient Baldomero BELCHER, [facility] [id number] Univers 14:00:00 14:00:00 ROSS [id number] [facility] 2020-10-13 2020-10-13 Outpatient Baldomero BELCHER, [facility] [id number] Univers 14:00:00 14:00:00 ROSS [facility] 2019-02-06 2019-02-06 Feed 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 [id number] [facility] 14:31:28 17:01:28 Visit Josh Clark [place] 350.1.13. 10 ity [facility] 4.2.7.2.686 [facility] [id number] [address] 2019-02-06 2019-02-06 Orders Doctor REJI [id number] 00:00:00 00:00:00 Only Unassigned, ELENA 350.1.13.10 [place] [facility] 4.2.7.2.686 [id number] 2019-02-06 2019-02-06 Orders Doctor REJI [id number] [facility] 00:00:00 00:00:00 Only Unassigned, ELENA 350.1.13.10 ity of [place] [facility] 4.2.7.2.686 Frank [id number] [address] Results Test Description Test Time Test Comments Results Result Comments Source HEMOGLOBIN A1c 2022-01-19 08:46:17 Test Item Value Reference Range Interpretation Comme nts HEMOGLOBIN A1c (test code = 5.0 % 4.2-5.6 UNLESS OTHERWISE INDICATED, 12138) ALL TESTING PER FORMED ATCLINICAL PATHOLOGY LABOR [email or web address] [address] [place] [address] , [place] [address] LABORATORY DIRE CTOR: VAISHALI WILL M.D. CLIA NUMBER [id number] [place]. [id number] CBC W/AUTO DIFF WITH [id number] 08:31:29 Test Item Value Reference Range Interpretation Comments WBC (test code = 7.0 K/UL 3.5-11.0 1001) RBC (test code = 4.27 M/UL 3.80-5.40 1002) HEMOGLOBIN (test code 11.8 G/DL 11.5-15.5 = 1003) HEMATOCRIT (test code 36.5 % 34.0-45.0 = 1004) MCV (test code = 85.5 fL 80.0-99.0 1005) MCH (test code = 27.6 PG 25.0-33.0 1006) MCHC (test code = 32.3 G/DL 31.0-36.0 1007) RDW (test code = 13.0 % 11.5-15.0 1038) NEUTROPHILS (test 66.1 % code = 1008) LYMPHOCYTES (test 27.0 % code = 1010) MONOCYTES (test code 4.4 % = 1011) EOSINOPHILS (test 1.9 % code = 1012) BASOPHILS (test code 0.3 % = 1013) IMMATURE GRANULOCYTES 0.3 % (test code = 1036) NUCLEATED RBCS (test 0.0 /100 See_Comment [Autom ated code = 1065) WBC'S message] The sy stem which generated this result transmitted reference range : 0.0. The refere nce range was not u sed to interpret th is result as normal/abnormal . PLATELET COUNT (test 285 K/UL 130-400 code = 1015) ABSOLUTE NEUTROPHILS 4.64 K/UL 1.50-7.50 (test code = 1066) ABSOLUTE LYMPHOCYTES 1.89 K/UL 1.00-4.00 (test code = 1067) ABSOLUTE MONOCYTES 0.31 K/UL 0.20-1.00 (test code = 1068) ABSOLUTE EOSINOPHILS 0.13 K/UL 0.00-0.50 (test code = 1040) ABSOLUTE BASOPHILS 0.02 K/UL 0.00-0.20 (test code = 1069) ABS IMMATURE 0.02 K/UL 0.00-0.10 GRANULOCYTES (test code = 1020) ABS NUCLEATED RBCS 0.00 K/UL 0.00-0.11 (test code = 04932) COMPREHENSIVE METABOLIC [id number] 06:10:10 Test Item Value Reference Range Interpretation Comments GLUCOSE (test code = 76 MG/DL 70-99 2216) BUN (test code = 7 MG/DL 6-20 2207) CREATININE (test 0.80 MG/DL 0.60-1.30 code = 221) eGFR (2020 CKD-EPI) 104 >60 (test code = 77557) ML/MIN/1.73 CALC BUN/CREAT (test 9 RATIO 6-28 code = 223) SODIUM (test code = 140 MEQ/L 681-325 6687) POTASSIUM (test code 3.8 MEQ/L 3.5-5.4 = 2227) CHLORIDE (test code 104 MEQ/L 95-107 = 2214) CARBON DIOXIDE (test 27 MEQ/L 19-31 code = 2205) CALCIUM (test code = 9.3 MG/DL 8.5-10.5 2208) PROTEIN, TOTAL (test 6.9 G/DL 6.1-8.3 code = 2228) ALBUMIN (test code = 4.0 G/DL 3.5-5.2 2200) CALC GLOBULIN (test 2.9 G/DL 1.9-3.7 code = 2239) CALC A/G RATIO (test 1.4 RATIO 1.0-2.6 code = 223) BILIRUBIN, TOTAL 0.7 MG/DL See_Comment [Automated message] (test code = 2206) The syste m which generated this result transmit jarrett reference range : <=1.2. The refe rence range was not u sed to interpret th is result as normal/abnormal . ALKALINE PHOSPHATASE 57 U/L 40-112 (test code = 2203) AST (test code = 12 U/L 9-40 2217) ALT (test code = 11 U/L 5-40 2218) CBC W/AUTO [id number] 00:00:00 Test Item Value Reference Range Interpretation Comments WBC (test code = 1001) 7.3 K/UL RBC (test code = 1002) 4.44 M/UL HEMOGLOBIN (test code = 1003) 11.2 G/DL HEMATOCRIT (test code = 1004) 34.6 % MCV (test code = 1005) 77.9 fL MCH (test code = 1006) 25.2 PG MCHC (test code = 1007) 32.4 G/DL RDW (test code = 1038) 14.8 % NEUTROPHILS (test code = 1008) 56.4 % LYMPHOCYTES (test code = 1010) 36.7 % MONOCYTES (test code = 1011) 4.5 % EOSINOPHILS (test code = 1012) 1.9 % BASOPHILS (test code = 1013) 0.5 % PLATELET COUNT (test code = 1015) 331 K/UL CBC W/AUTO [id number] 00:00:00 Test Item Value Reference Range Interpretation Comments WBC (test code = 1001) 7.3 K/UL RBC (test code = 1002) 4.44 M/UL HEMOGLOBIN (test code = 1003) 11.2 G/DL HEMATOCRIT (test code = 1004) 34.6 % MCV (test code = 1005) 77.9 fL MCH (test code = 1006) 25.2 PG MCHC (test code = 1007) 32.4 G/DL RDW (test code = 1038) 14.8 % NEUTROPHILS (test code = 1008) 56.4 % LYMPHOCYTES (test code = 1010) 36.7 % MONOCYTES (test code = 1011) 4.5 % EOSINOPHILS (test code = 1012) 1.9 % BASOPHILS (test code = 1013) 0.5 % PLATELET COUNT (test code = 1015) 331 K/UL [id number] 00:00:00 Test Item Value Reference Range Interpretation Comments TSH, THIRD GENERATION (test code 0.740 UIU/ML = 2821) [id number] 00:00:00 Test Item Value Reference Range Interpretation Comments TSH, THIRD GENERATION (test code 0.740 UIU/ML = 2821) COMPREHENSIVE METABOLIC [id number] 00:00:00 Test Item Value Reference Range Interpretation Comments GLUCOSE (test code = 2217) 81 MG/DL BUN (test code = 2208) 5 MG/DL CREATININE (test code = 2214) 0.73 MG/DL eGFR AMER. (test code 134 ML/MIN/1.73 = 92980) eGFR NON- AMER. (test 115 ML/MIN/1.73 code = 89030) CALC BUN/CREAT (test code = 7 RATIO 2235) SODIUM (test code = 2231) 140 MEQ/L POTASSIUM (test code = 2228) 3.9 MEQ/L CHLORIDE (test code = 2215) 105 MEQ/L CARBON DIOXIDE (test code = 21 MEQ/L 2205) CALCIUM (test code = 2209) 9.4 MG/DL PROTEIN, TOTAL (test code = 7.1 G/DL 2228) ALBUMIN (test code = 2201) 4.2 G/DL CALC GLOBULIN (test code = 2.9 G/DL 2239) CALC A/G RATIO (test code = 1.4 RATIO 2233) BILIRUBIN, TOTAL (test code = 0.7 MG/DL 2206) ALKALINE PHOSPHATASE (test 58 U/L code = 2204) AST (test code = 2218) 15 U/L ALT (test code = 2219) 10 U/L HEMOGLOBIN [id number] 00:00:00 Test Item Value Reference Range Interpretation Comments HEMOGLOBIN A1c (test code = 33037) 4.8 % HEMOGLOBIN [id number] 00:00:00 Test Item Value Reference Range Interpretation Comments HEMOGLOBIN A1c (test code = 14986) 4.8 %
[2022-01-30 23:51] LABS: SARS-CoV-2 Antigen Rapid Res Negative (Negative)
--- NOTE | 2022-01-31 00:49 | ER ---
Nurse's Notes [facility] Name: Anisa Fernandes Age: 26 yrs Sex: Female : 1995 Arrival Date: 01/30/2022 Time: 22:21 Bed 8 Private MD: Diagnosis: Headache;Acute upper respiratory infection, unspecified;Pain in throat Presentation: 01/30 22:39 Chief complaint: Patient states: "I have been having congestion since , now I vc1 have a really bad headache, the pain is going to my neck and it feels like it is in my ears.". Coronavirus screen: Vaccine status: Patient reports being unvaccinated. congestion, fatigue, headache, runny nose. Ebola Screen: No symptoms or risks identified at this time. Initial Sepsis Screen: Does the patient meet any 2 criteria? No. Patient's initial sepsis screen is negative. Does the patient have a suspected source of infection? No. Patient's initial sepsis screen is negative. Risk Assessment: Do you want to hurt yourself or someone else? Patient reports no desire to harm self or others. Onset of symptoms was January 27, 2022. 22:39 Method Of Arrival: Ambulatory vc1 22:39 Acuity: EDWIN 4 vc1 Triage Assessment: 22:43 Headache History: Denies prior headaches. General: Appears in no apparent distress. vc1 uncomfortable, ill, Behavior is calm, cooperative, appropriate for age. Neuro: Level of Consciousness is awake, alert, obeys commands, Oriented to person, place, time, situation, Appropriate for age. 01/31 01:07 Pain: Complains of pain in head. 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 - Social history:: Smoking status: Reported history of juuling and/or vaping. Screenin/25 01:06 Abuse screen: Denies threats or abuse. Denies injuries from another. Nutritional as6 screening: No deficits noted. Tuberculosis screening: No symptoms or risk factors identified. Fall Risk None identified. Vital Signs: 01/30 22:39 BP 127 / 80; Pulse 77; Resp 18; Temp 98.4; Pulse Ox 100% ; Weight 83.01 kg; Height 5 vc1 ft. 4 in. (162.56 cm); Pain 0/10; 22:39 Body Mass Index 31.41 (83.01 kg, 162.56 cm) vc1 ED Course: 22:21 Patient arrived in ED. bp1 22:27 Андрей Kim PA is PHCP. jmm 22:27 Master Guillen DO is Attending Physician. jmm 22:42 Triage completed. vc1 22:44 Arm band placed on right wrist. vc1 23:00 Strep Sent. oe 23:00 Influenza Screen (a \\T\\ B) Sent. oe 23:00 SARS RAPID Sent. oe 23:23 Donny Santiago, WILDER is Primary Nurse. as6 01/31 00:48 Lex Velez DO is Referral Physician. ms3 01:06 Bed in low position. Call light in reach. Side rails up X2. as6 01:06 No provider procedures requiring assistance completed. Patient did not have IV access as6 during this emergency room visit. Administered Medications: 01:02 Drug: Ibuprofen 600 mg Route: PO; as6 01:06 Follow up: Response: No adverse reaction as6 Medication: 01:07 VIS not applicable for this client. as6 Outcome: 00:48 Discharge ordered by MD. ms3 01:06 Discharged to home ambulatory. as6 01:06 Condition: stable 01:06 Discharge instructions given to patient, Instructed on discharge instructions, follow up and referral plans. Demonstrated understanding of instructions, follow-up care. 01:07 Patient left the ED. as6 Signatures: Андрей Kim PA PA [facility] [place] oe Master Guillen DO DO ms3 Karley Melchor [facility] Donny Santiago, WILDER RN as6 Kathie Villaseñor RN RN vc1
--- NOTE | 2022-01-31 00:49 | EDPHYS ---
Physician Documentation [facility] Name: Anisa Fernandes Age: 26 yrs Sex: Female : 1995 Arrival Date: 01/30/2022 Time: 22:21 Bed 8 Private MD: ED Physician Master Guillen HPI: 01/30 22:57 This 26 yrs old Black Female presents to ER via Ambulatory with complaints of Headache, ms3 Congestion. 22:57 26-year-old female with no past medical history presents for congestion, headache, ms3 fatigue that began on . Patient denies pain at this time. Patient states she is taking Claritin without relief. Patient denies alleviating or inciting factors. Patient denies fevers, chills, nausea, vomiting. 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 - Social history:: Smoking status: Reported history of juuling and/or vaping. ROS: 22:57 Constitutional: Negative for fever, and chills. Eyes: Negative for injury, pain, ms3 redness, and discharge, Neck: Negative for injury, pain, and swelling, Cardiovascular: Negative for chest pain, and palpitations. Respiratory: Negative for shortness of breath, cough, wheezing, and pleuritic chest pain, Abdomen/GI: Negative for abdominal pain, nausea, vomiting, diarrhea, and constipation, MS/Extremity: Negative for injury and deformity, Skin: Negative for injury, rash, and discoloration, Psych: Negative for depression, anxiety, suicide ideation, homicidal ideation, and hallucinations. 22:57 ENT: Positive for rhinorrhea, sinus congestion. 22:57 Neuro: Positive for headache. 22:57 All other systems are negative. Exam: 22:57 Constitutional: This is a well developed, well nourished patient who is awake, alert, ms3 and in no acute distress. Head/Face: Normocephalic, atraumatic. Chest/axilla: Normal chest wall appearance and motion. Nontender with no deformity. Cardiovascular: Regular rate and rhythm with a normal S1 and S2. No gallops, murmurs, or rubs. Normal PMI, no JVD. No pulse deficits. Respiratory: Lungs have equal breath sounds bilaterally, clear to auscultation and percussion. No rales, rhonchi or wheezes noted. No increased work of breathing, no retractions or nasal flaring. Abdomen/GI: Soft, non-tender, with normal bowel sounds. No distension or tympany. No guarding or rebound. No evidence of tenderness throughout. Back: No spinal tenderness. No costovertebral tenderness. Full range of motion. Skin: Warm, dry with normal turgor. Normal color with no rashes, no lesions, and no evidence of cellulitis. Psych: Awake, alert, with orientation to person, place and time. Behavior, mood, and affect are within normal limits. Vital Signs: 22:39 BP 127 / 80; Pulse 77; Resp 18; Temp 98.4; Pulse Ox 100% ; Weight 83.01 kg; Height 5 vc1 ft. 4 in. (162.56 cm); Pain 0/10; 22:39 Body Mass Index 31.41 (83.01 kg, 162.56 cm) vc1 MDM: 22:44 Patient medically screened. ms3 22:57 Differential diagnosis: sinusitis, COVID. ms3 01/31 00:49 Data reviewed: vital signs, nurses notes, lab test result(s), and as a result, I will ms3 discharge patient. Data interpreted: Pulse oximetry: on room air is 100 %. Interpretation: normal. Counseling: I had a detailed discussion with the patient and/or guardian regarding: the historical points, exam findings, and any diagnostic results supporting the discharge/admit diagnosis, lab results, the need for outpatient follow up, to return to the emergency department if symptoms worsen or persist or if there are any questions or concerns that arise at home. ED course: On reevaluation patient is alert and oriented x4, in no apparent distress, nontoxic-appearing, speaking full sentences, ambulatory in emergency department. . 01/30 22:27 Order name: SARS RAPID; Complete Time: 00:39 [facility] 01/30 22:28 Order name: Influenza Screen (a \T\ B); Complete Time: 00:39 [facility] 01/30 22:28 Order name: Strep; Complete Time: 00:39 [facility] 01/30 23:52 Order name: Throat Culture EDMS Administered Medications: 01:02 Drug: Ibuprofen 600 mg Route: PO; as6 01:06 Follow up: Response: No adverse reaction as6 Disposition Summary: 01/31/22 00:48 Discharge Ordered Location: Home ms3 Condition: Stable ms3 Diagnosis - Headache ms3 - Acute upper respiratory infection, unspecified ms3 - Pain in throat ms3 Followup: ms3 - With: Lex Velez DO - When: 2 - 3 days - Reason: Re-evaluation by your physician Discharge Instructions: - Discharge Summary Sheet ms3 - General Headache Without Cause ms3 - Viral Respiratory Infection, [id number] ms3 - General Headache Without Cause, [id number] ms3 Forms: - Medication Reconciliation Form ms3 - Thank You Letter ms3 - Antibiotic Education ms3 - Prescription Opioid Use ms3 - Work release form as6 Prescriptions: - Ibuprofen 600 mg Oral Tablet - take 1 tablet by ORAL route every 6 hours As needed take with food; 30 tablet; ms3 Refills: 0, Product Selection Permitted Signatures: Dispatcher [employer] EDMS Master Guillen DO DO ms3 Donny Santiago, RN RN as6 Kathie Villaseñor RN RN vc1
[2022-01-31] MEDS ORDERED: IBUPROFEN 200 MG TAB PO ONE (01:10)
[2022-01-31] MEDS ORDERED: IBUPROFEN 400 MG TAB ONE (01:11)
[2022-01-31 01:36] VITALS: BP 127/80; TEMP 98.4; O2SAT 100
== END 2022-01-31 01:07 | disposition home or self-care (01) ==
LOC: ER 22:18
DX: J06.9 Acute upper respiratory infection, unspecified (principal); R07.0 Pain in throat; Z20.822 Contact with and (suspected) exposure to COVID-19
CPT/HCPCS: 36415; 87070; 87081; 87804; 87811; 99283

== ENCOUNTER 2022-08-28 22:19 | Emergency (ER) | payer SELFPAY ==
--- OUTSIDE RECORDS SUMMARY | 2022-08-28 22:24 | XMS REPORT | Continuity of Care Document ---
:1995 Author Organization [facility] t Address [address] [place] [address] Care Team Providers Name Role Phone Beti Segovia Primary Care Physician [phone] Eda Fischer Attending Clinician Doctor Unassigned, [place] Attending Clinician Unavailable ROSS BELCHER Attending Clinician Unavailable , [facility] Attending Clinician Unavailable Josh Clark Attending Clinician Payers Payer Name Policy Type Policy Number Effective Date Expiration Date [facility] [id number] 2019 [facility] MEDICAID 00:00:00 Problems Condition Condition Condition Status Onset Resolution Last Treating Co mments Source Name Details Category Date Date Treatment Clinician Date Obesity Obesity Disease Active 2018-07 Univers (BMI (BMI 1-21 ity of 30-39.9) 30-39.9) 00:00: [place] [address] Medical Branch Multiparou Multiparou Disease Active 2018-07 U poonam s s 1-20 ity of 00:00: [place] [address] Medical Branch Encounter Encounter Disease Active 2018-07 Overview: Univers for for 07-10 Formattin ity of sterilizat sterilizat 00:00: g of this [place] ion ion 00 note Medical might be Branch different from the original. Added automatic ally from request for surgery [id number] Allergies, Adverse Reactions, Alerts Allergy Allergy Status Severity Reaction(s) Onset Inactive Treating Comm ents Source Name Type Date Date Clinician NO KNOWN Drug Active Univers ALLERGIE Class ity of S [facility] Social History Social Habit Start Date Stop Date Quantity Comments Source History of tobacco Cigarette Smoker University of use [facility] History SDIN University o f Alcohol Frequency [facility] edical Branch History SDIN University o f Alcohol Std Drinks [facility] History [facility] o f Alcohol Binge [place] Medic al Branch Exposure to Not sure University SARS-CoV-2 (event) [facility] Alcohol intake 2021-04-10 2021-04-10 Current drinker Unive rsity of 00:00:00 00:00:00 of alcohol [facility] (finding) [place] Alcohol Comment 2019-05-29 2019-05-29 Occasional Universit y of 00:00:00 00:00:00 Drinker [facility] Cigarettes smoked 2019-05-03 2019-05-03 Univers ity of current (pack per 00:00:00 00:00:00 [facility] ) - Reported Branch Tobacco use and 2019-05-03 2019-05-03 Smokeless tobacco Un iversity of exposure 00:00:00 00:00:00 non-user [facility] Sex Assigned At [birth year] Universit y of 00:00:00 00:00:00 [facility] Smoking Status Start Date Stop Date Source Unknown if [facility] Heavy tobacco smoker 2019-05-03 00:00:00 [facility] [place] ity of [facility] Medications Ordered Filled Start Stop Current Ordering Indication Dosage Frequency Signature Comments Components Source Medication Medication Date Date Medication? Clinician (SIG) Name Name TAKE No TABLET BY 9-08 MOUTH EVERY 00:00: 6 HOURS 00 NEEDED FOR PAIN TAKE WITH FOOD TAKE No TABLET BY 9-08 MOUTH EVERY 00:00: 6 HOURS 00 NEEDED FOR PAIN TAKE WITH FOOD dexamethaso 2020-07- No 10mg 10 mg, Uni vers ne 004-10 Intramuscu ity of (DECADRON 00:00: 23:18 lar, ONCE, [place] PHOSPHATE) 00 :00 1 dose, On Med ical injection Sat Branch 10 mg 04/10/21 at 1900, STAT ketorolac 2020-07- No 60mg 60 mg, Unive rs (TORADOL) 0-03 10-02 Intramuscu ity of injection 00:00: 23:18 lar, ONCE, [place] 60 mg 00 :00 1 dose, On Medical Sat Branch 04/10/21 at 1900, [facility] medication : EMERGENCY ROOM, ibuprofen 2020-07 Yes [id number] 800mg Take 1 Univers 800 mg 0-02 tablet by ity of tablet 00:00: mouth [place] 00 every 8 Medical (eight) Branch hours as needed for Pain (scale 4-6). methocarbam 2020-07 Yes [id number] 750mg Take 1 Univers oL 750 mg 0-02 tablet by ity o f tablet 00:00: mouth 4 [place] 00 (four) Medical times Branch daily as needed for Pain (scale 7-10). ibuprofen 2020-07 Yes [id number] 800mg Take 1 Univers 800 mg 0-02 tablet by ity of tablet 00:00: mouth [place] 00 every 8 Medical (eight) Branch hours as needed for Pain (scale 4-6). methocarbam 2020-07 Yes [id number] 750mg Take 1 Univers oL 750 mg 0-02 tablet by ity o f tablet 00:00: mouth 4 [place] 00 (four) Medical times Branch daily as needed for Pain (scale 7-10). predniSONE 2020-07 No [id number] 40mg Take 2 Univers 20 mg 0-02 10-08 tablets by ity of tablet 00:00: 04:59 mouth [place] 00 :00 daily for Medical 5 days. Branch ibuprofen 2018-07 Yes [id number] 800mg Take 1 Univers 800 mg 1-21 tablet by ity of tablet 00:00: mouth [place] 00 every 6 Medical (six) Branch hours as needed for Pain (scale 4-6). HYDROcodone 2018-07 Yes [id number] 1{tbl} Take 1 Univers -acetaminop 1-21 tablet by ity of hen 5-325 00:00: mouth [place] mg tablet 00 every 6 Medical (six) Branch hours as needed for Pain (scale 7-10). ibuprofen 2018-07 Yes [id number] 800mg Take 1 Univers 800 mg 1-21 tablet by ity of tablet 00:00: mouth [place] 00 every 6 Medical (six) Branch hours as needed for Pain (scale 4-6). HYDROcodone 2018-07 Yes [id number] 1{tbl} Take 1 Univers -acetaminop 1-21 tablet by ity of hen 5-325 00:00: mouth [place] mg tablet 00 every 6 Medical (six) Branch hours as needed for Pain (scale 7-10). ibuprofen 2018-07 Yes [id number] 800mg Take 1 Univers 800 mg 1-21 tablet by ity of tablet 00:00: mouth [place] 00 every 6 Medical (six) Branch hours as needed for Pain (scale 4-6). HYDROcodone 2018-07 Yes [id number] 1{tbl} Take 1 Univers -acetaminop 1-21 tablet [...] Source Systolic blood 2021-04-10 23:26:49 138 mm[Hg] [facility] Diastolic blood 2021-04-10 23:26:49 98 mm[Hg] [facility] Heart rate 2021-04-10 23:26:49 86 /min [facility] Body temperature 2021-04-10 23:26:49 36.28 [facility] Respiratory rate 2021-04-10 23:26:49 16 /min [facility] Body weight 2021-04-10 22:39:00 81.647 kg [facility] BMI 2021-04-10 22:39:00 30.42 kg/m2 [facility] Oxygen saturation in 2021-04-10 22:39:00 100 /min [facility] blood by [facility] [place] Pulse oximetry Branch Heart Rate 2022-03-26 12:21:00 86.00 /min Respiratory Rate 2022-03-26 12:21:00 18.00 /min BP Systolic 2022-03-26 12:21:00 120 mm[Hg] BP Diastolic 2022-03-26 12:21:00 79 mm[Hg] Weight Measured 2022-03-26 12:21:00 182.60 pounds Height Measured 2022-03-26 12:21:00 64.01 inches Body Temperature 2022-03-26 12:21:00 98.10 degrees BP Systolic 2022-03-17 08:40:00 111 mm[Hg] BP Diastolic 2022-03-17 08:40:00 71 mm[Hg] Weight Measured 2022-03-17 08:40:00 180.80 pounds Height Measured 2022-03-17 08:40:00 64.01 inches Body Temperature 2022-03-17 08:40:00 97.40 degrees Heart Rate 2022-03-17 08:40:00 69.00 /min Respiratory Rate 2022-03-17 08:40:00 BP Systolic 2022-01-18 13:24:00 114 mm[Hg] BP [...] Procedure Date / Time Performed Performing Clinician [facility] e CONSENT/REFUSAL FOR 2022-03-28 17:31:56 Doctor Unassigned, No Un [facility] [place] DIAGNOSIS AND Name Medical Branch TREATMENT NOTICE OF PRIVACY 2021-04-10 22:30:00 Doctor Unassigned, No Univ [facility] [place] PRACTICES Name Medical Branch CONSENT/REFUSAL FOR 2021-04-10 22:29:42 Doctor Unassigned, No [facility] [place] DIAGNOSIS AND Name Medical Branch TREATMENT SLEEP STUDY DATA 2019-02-06 05:01:00 Doctor Unassigned, No [facility]ive [facility] [place] REPORT Name Medical Branch Plan of Care Planned Activity Planned Date Details Comments Source Goal Plan of Care Note [code = 09396-8] Goal Plan of Care Note [code = 50445-5] Goal Plan of Care Note [code = 08984-4] Goal Plan of Care Note [code = 48723-8] Goal Plan of Care Note [code = 62122-9] Goal Plan of Care Note [code = 09332-2] Goal Plan of Care Note [code = 86826-8] Goal Plan of Care Note [code = 35916-5] Goal Plan of Care Note [code = 67597-6] Goal Plan of Care Note [code = 83337-6] Goal Plan of Care Note [code = 46864-0] Goal Plan of Care Note [code = 77074-8] Goal Plan of Care Note [code = 64002-4] Goal Plan of Care Note [code = 14135-5] Goal Plan of Care Note [code = 44735-5] Goal Plan of Care Note [code = 91607-1] Goal Plan of Care Note [code = 16101-0] Goal Plan of Care Note [code = 46987-4] Goal Plan of Care Note [code = 87314-5] Goal Plan of Care Note [code = 56556-4] Goal Plan of Care Note [code = 69536-0] Goal Plan of Care Note [code = 71332-3] Goal Plan of Care Note [code = 43371-3] Goal Plan of Care Note [code = 25410-1] Goal Plan of Care Note [code = 64777-0] Goal Plan of Care Note [code = 67467-4] Goal Plan of Care Note [code = 50016-4] Goal Plan of Care Note [code = 85416-1] Goal Plan of Care Note [code = 48214-0] Goal Plan of Care Note [code = 63876-6] Goal Plan of Care Note [code = 13793-6] Goal Plan of Care Note [code = 38326-3] Goal Plan of Care Note [code = 57980-7] Goal Plan of Care Note [code = 92771-2] Goal Plan of Care Note [code = 93855-7] Encounters Start End Encounter Admission Attending Care Care Encounter Source Date/Time Date/Time Type Type Clinicians Facility Department ID 2021-05-11 Emergency [facility] [id number] [facility] 2022-04-20 Outpatient SFA SFA [id number] Xavi 08:09:20 08:09:20 1012 F Osiel 2022-03-28 2022-03-28 Emergency X [facility] ERT [id number] Univers 12:48:00 13:01:00 [facility] 2022-03-28 2022-03-28 Emergency [facility] [id number] Univers 12:48:00 13:01:00 [place] 350.1.13.10 i [facility] 4.2.7.2.686 [facility] [id number] [address] 2022-03-26 2022-03-26 Outpatient [id number]- [id number] 00:00:00 00:00:00 Visit [id number] [id number]-a -[id number] 2022-03-17 2022-03-17 Outpatient [id number] [id number] 00:00:00 00:00:00 Visit [id number]-4998 [id number]-4998-a -w476-a46 [id number]-[id number] [id number] [id number] 2022-01-18 2022-01-18 Outpatient [id number]- [id number] [id number] ea7z14-3 00:00:00 00:00:00 Visit 8691-4c59 [id number]-[id number] -rr27-538 [id number] 0f4f3f 2021-04-10 2021-04-10 Emergency Vargas, [facility] [id number] Univers 17:40:00 20:56:00 Eda Lockton 350.1.13.10 i ty of [place] 4.2.7.2.686 [facility] [id number] [facility] 084 Branch 2021-04-10 2021-04-10 Orders Doctor MENDOZA [id number] Univers 00:00:00 00:00:00 Only Unassigned, ELENA 350.1.13.10 ity of [place] [facility] 4.2.7.2.686 Frank as [id number] [facility] 009 [place] 2020-10-13 2020-10-13 Outpatient Baldomreo BELCHER, [facility] [id number] [facility] [place] 14:00:00 14:00:00 ROSS caal [facility] 2019-02-06 2019-02-06 Furnace Door Tender 1, [facility] Sleep Lab Bed [facility] 1. [id number] [facility] [place] 14:31:28 17:01:28 Visit Josh Clark 350.1.13. 10 ity of [place] 4.2.7.2.686 [facility] [id number] [facility] 193 Branch 2019-02-06 2019-02-06 Furnace Door Tender 1, [facility] [id number] 14:31:28 17:01:28 Visit Sleep Lab Shlomo 350.1.13.10 Bed [place] [address] [place] [address] [id number] 2019-02-06 2019-02-06 Orders Doctor REJI [id number] Univers 00:00:00 00:00:00 Only Unassigned, ELENA 350.1.13.10 ity of [place] [facility] 4.2.7.2.686 Frank as [id number] [facility] 009 [place] 2019-02-06 2019-02-06 Orders Doctor MENDOZA [id number] 00:00:00 00:00:00 Only Unassigned, ELENA 350.1.13.10 [place] [facility] 4.2.7.2.686 [id number] Results Test Description Test Time Test Comments Results Result Comments Source SURGICAL PATHOLOGY REPORT 2022-04-25 13:24:06 Test Item Value Reference Range Interpretation Comme nts DIAGNOSIS: (test code = 8200) (NOTE) A) Biopsy - Cervix, 10-11:00Benign squamous mucosa with no diagnostic abnormality. B) Biopsy - Cervix , 1:00Squamous mucosa with mild chronic in flammation. C) Curettage - EndocervixBenig n endocervical tissue. COMMENTS: (test code = 8205) (NOTE) The previously reported abnormal Pap (accession #[id number]) isreviewed. The atypical cells identified on the Pap slide are notrepresen jarrett on the biopsy material, however no lambert sformationzone is present. MICROSCOPIC DESCRIPTION: (test (NOTE) A) The biopsy consists of squamous mucosa, code = 8210) without endocer vicalglandular component, showing no atyp ia or significantinfl ammation. B) Cervical squamous mucosa is present without contiguoustrans formation zone. Endocervical glands are seen in theunderlying stroma. There is mild c hronic inflammation withreactive ce llular changes. No dysplasia or malignancy i s seen. C) The sample contains endoce rvical glandular epithelium withmucin admix ed. No atypia is present. CLINICAL DATA: (test code = (NOTE) Not specified 8401) GROSS DESCRIPTION: (test code = (NOTE) A) SPECIMEN LABELED: Cervix, 8220) 10-11:00SIZE/WE IGHT: 0.3x0.1x0.1 cm SPECIMEN COLOR: TanNUMBER OF TISSUE PIECES: 1SUBMITTED IN C ASSETTE(S): [id number]: FormalinCOMMENT S:Entirely submitted intact. B) SPECIMEN LAB ELED: Cervix, 1:00SIZE/WEIGHT : 0.3x0.3x0.1 cm SPECIMEN COLOR: TanNUMBE R OF TISSUE PIECES: 1SUBMITTED IN C ASSETTE(S): [id number]: FormalinCOMMENT S:Entirely submitted intact. C) SPECIMEN LAB ELED: EndocervixSIZE/WEIGHT: <0.1x0.1x0.1 cm AggregateSPECIMEN COLOR: TanNUMBER OF TI SSUE PIECES: multipleSUBMITT ED IN CASSETTE(S): [id number]: FormalinCOMMENT S:Irregularly shaped tissue fragments with mucus. Extremely scant,filtered and entirely submitted. Specimen may no t surviveprocessing. PATHOLOGIST: (test code = 8250) (NOTE) Cedric Haile M.D. Specimens processed at [facility], [address] [place] [address], [place] [address], , CLIA: [id number] interpreted at [facility] [address] [address], Phone: ,CLIA: [id number] CPT: (test code = 8400) (NOTE) 8830 5x3 UNLESS OTHERWISE INDICATED, ALL TESTING PERFORM ED ATCLINICAL PATHOLOGY LABORATORIES, [facility]. [address] [place] [address] LABORATOR Y DIRECTOR: VAISHALI WILL M.D. CLIA NUMBER [id number] CAP ACCREDITATION N O. [id number] NOTE:2022-04-07 06:05:09 Test Item Value Reference Range Interpretation Comments NOTE: (test code = (NOTE) IN ACCOR DANCE WITH FEDERAL 998) GUIDELINES REQU IRING ALL VERBAL REQUESTS FOR LABORATORY TEST S TO BE ACCOMPANIED BY WRITTEN AUTHORIZATION W ITHIN 30 DAYS OF THIS REQUEST , PLEASE SIGN BELOW AND RETUR N A COPY OF THIS REPORT BY FAX TO THE LABORATORY SCAN CRYSTAL DEPARTMENT AT . PHYSICIAN'S SIG NATURE DATE UNLESS OTHERWISE INDIC ATED, ALL TESTING PERFORM ED ATCLINICAL PATHOLOGY LABOR [facility] [address] [place] [address] LABORATOR Y DIRECTOR: VAISHALI HALEY M.D. CLIA NUMBER [id number] CAP ACCREDITATION N O. [id number] HPV HIGH RISK WITH GENOTYPE, [id number] 14:14:38 Test Item Value Reference Range Interpretation Comments HPV HIGH RISK INTERP POSITIVE NEGATIVE A (test code = 55932) HPV 16 (test code = NEGATIVE 85182) HPV 18 (test code = NEGATIVE 07918) HPV, HR, OTHER POSITIVE A Testing meth odology is GENOTYPES (test code real-ti me PCR utilizing = 11501) hydrolysis prob es with the Saúl Natalia 4800 system. The jin t individually de tects genotypes 16 an d 18, as well as the oth er 12 high risk types (31,33,35,39,45 ,51,52,56 ,58,59,66,68). The expected result is negative. A neg ative result does not rule out the presence of HPV not included in the genotype set, a low leve l of infection or sp ecimen sampling error. PAP TEST, THINPREP, [id number] 11:12:56 Test Item Value Reference Interpretation Comments Range SOURCE: (test code Endocervical = 8001) SLIDES: (test code 1 = 8011) LMP: (test code = 02/26/2022 8021) SPECIMEN ADEQUACY: (NOTE) Satisfac tormelina for (test code = 88258) evaluati on. Endocervical cells/transform ation zone component present. INTERPRETATION: ASCUS/EPITH. A -------- (test code = 53589) ABNORMALITY; SEE ---- BELOW ----- EPITHELIAL CELL ABNORMALITY Atypical squamo us cells of undetermined significance (ASC-US)------- ----- ----- ----- --- [facility] DIRECTOR: TAVON Vicente (test code = 8101) (ASCP) PATHOLOGIST Nancy Kirkland, INTERPRETATION BY: Nate (test code = 8122) LOCATION: (test (NOTE) Specimens pr ocessed code = 83779) at [facility], [address] [facility] [place] [address], , CLIA: [id number] 3and interpreted at [facility], [address], [address] [place] [address], Phone: , CLIA: [id number] CPT: (test code = (NOTE) 25569, 881 75 UNLESS 8140) OTHERWISE INDIC ATED, COMPUTER AIDED AND CYTOTECHNOLOGIS T SCREENING PERFO RMED. The Pap test is a screening test with an inherent, bu t low probability of error. Your pat ient should be remin ded to consult you immediately if she experiences any suspicious sign s or symptoms, regar dless of her Pap test result. An alte rnate report format containing imag es or consolidated pr ior Pap history is available as applicable. UNL ESS OTHERWISE INDIC ATED, ALL TESTING PERFORMED [facility] PATHOLOGY LABORATORIES, [facility]. [address] [place] [id number] [place] [address] DIRECTOR: VAISHALI WILL M.D. CLIA NUMBER [id number] [place] [id number] VAGINAL PATHOGENS DNA [id number] 17:32:34 Test Item Value Reference Range Interpretation Comments HAY SPECIES (test NEGATIVE NEGATIVE code = 29982) G. VAGINALIS (test POSITIVE NEGATIVE A code = ) T. VAGINALIS (test NEGATIVE NEGATIVE UNLESS O THERWISE code = ) INDICATED, ALL TESTING PERFORMED [facility], [facility]. [address] [place] [address] 4 LABORATORY DIRE CTOR: VAISHALI HALEY M.D. CLIA NUMBER [id number] [facility] [place] [id number] HEPATITIS PANEL, [id number] 03:12:57 Test Item Value Reference Range Interpretation Comments HEPATITIS A IgM (test NON-REACTIVE NON-REACTIVE code = 65349) HEPATITIS B CORE IgM NON-REACTIVE NON-REACTIVE (test code = 4644) HEPATITIS B SURF AG NON-REACTIVE NON-REACTIVE (test code = 2739) HEPATITIS C ANTIBODY NON-REACTIVE NON-REACTIVE (test code = 4675) INTERPRETATION (NOTE) Hepatitis A HEPATITIS A: (test code sero logy shows no = 2552) evidence of acu te hepatitis A. INTERPRETATION (NOTE) Hepatitis B HEPATITIS B: (test code sero logy shows no = 87726) evidence of acu te hepatitis B and no indication of exposure to hepatitis B vir us in the previous yuliet eight months. INTERPRETATION (NOTE) Hepatitis C HEPATITIS C: (test code sero logy shows no = 70948) evidence of exposure to hepatitisC viru s at this time. I t can take up to 12 months after exposure tothe hepatitis C vir us for antibodies to become detectab le in the blood in certain patient s. HIV 1/2 4TH GEN, RFLX [id number] 03:12:57 Test Item Value Reference Range Interpretation Comments HIV 1/2 4TH GEN, RFLX CONF (test NON-REACTIVE NON-REACTIVE code = 3514) [id number] 23:09:13 Test Item Value Reference Range Interpretation Comments RPR RESULT (test code = NON-REACTIVE NON-REACTIVE 3501) RPR TITER (test code = 3500) NOT INDIC. TITER NOT INDIC. CT/NG, NAAT, [id number] 17:03:08 Test Item Value Reference Range Interpretation Comments GONORRHEA, NAAT NEGATIVE NEGATIVE IMPORTA NT NOTICE: SEE (test code = [place] [address]) [email or web address] [email or web address] Note: Assay methodology is nucleic acid amplification b y sales project manager m ediated amplification ( TMA) utilizing the A ptima Combo 2 Assay. CHLAMYDIA, NAAT NEGATIVE NEGATIVE IMPORTA NT NOTICE: SEE (test code = [place] [address]) [email or web address] [email or web address] Note: Assay methodology is nucleic acid amplification b y sales project manager m ediated amplification ( TMA) utilizing the A ptima Combo 2 Assay. HEMOGLOBIN [id number] 08:46:17 Test Item Value Reference Range Interpretation Comments HEMOGLOBIN A1c (test 5.0 % 4.2-5.6 UNLESS OTHERWISE code = 73449) INDICATED, ALL TESTING PERFORMED [facility] [address] [place] [address] [facility] DIRECTOR: VAISHALI WILL M.D. CLIA NUMBER [id number] CAP ACCREDITATION N O. [id number] CBC W/AUTO DIFF WITH [id number] 08:31:29 Test Item Value Reference Range Interpretation [...] = 1036) NUCLEATED RBCS (test 0.0 /100 WBC'S See_Comment [Aut omated code = 1065) message] The sy stem which generated this [...] RBCS 0.00 K/UL 0.00-0.11 (test code = 34754) COMPREHENSIVE METABOLIC [id number] 06:10:10 Test Item Value Reference Range Interpretation Comments GLUCOSE (test code = 76 MG/DL 70-99 2217) BUN (test code = 7 MG/DL 6-20 2207) CREATININE (test 0.80 MG/DL 0.60-1.30 code = 2213) eGFR (2020 CKD-EPI) 104 >60 (test code = 25699) ML/MIN/1.73 CALC BUN/CREAT (test 9 RATIO 6-28 code = 2235) SODIUM (test code = 140 MEQ/L 926-887 0988) POTASSIUM (test code 3.8 MEQ/L 3.5-5.4 = [...] RATIO (test 1.4 RATIO 1.0-2.6 code = 2233) BILIRUBIN, TOTAL 0.7 MG/DL See_Comment [Automated message] [...] (test code = 11 U/L 5-40 2218) HEMOGLOBIN [id number] 00:00:00 Test Item Value Reference Range Interpretation Comments HEMOGLOBIN A1c (test code = 80013) 5.0 % CBC W/AUTO [id number] 00:00:00 Test Item Value Reference Range Interpretation Comments WBC (test code = 1001) 7.0 K/UL RBC (test code = 1002) 4.27 M/UL HEMOGLOBIN (test code = 1003) 11.8 G/DL HEMATOCRIT (test code = 1004) 36.5 % MCV (test code = 1005) 85.5 fL MCH (test code = 1006) 27.6 PG MCHC (test code = 1007) 32.3 G/DL RDW (test code = 1038) 13.0 % NEUTROPHILS (test code = 1008) 66.1 % LYMPHOCYTES (test code = 1010) 27.0 % MONOCYTES (test code = 1011) 4.4 % EOSINOPHILS (test code = 1012) 1.9 % BASOPHILS (test code = 1013) 0.3 % IMMATURE GRANULOCYTES (test 0.3 % code = 1036) NUCLEATED RBCS (test code = 0.0 /100WBC'S 1065) PLATELET COUNT (test code = 285 K/UL 1015) ABSOLUTE NEUTROPHILS (test code 4.64 K/UL = 1066) ABSOLUTE LYMPHOCYTES (test code 1.89 K/UL = 1067) ABSOLUTE MONOCYTES (test code = 0.31 K/UL 1068) ABSOLUTE EOSINOPHILS (test code 0.13 K/UL = 1040) ABSOLUTE BASOPHILS (test code = 0.02 K/UL 1069) ABS IMMATURE GRANULOCYTES (test 0.02 K/UL code = 1020) ABS NUCLEATED RBCS (test code = 0.00 K/UL 91514) CBC W/AUTO [id number] 00:00:00 Test Item Value Reference Range Interpretation Comments WBC (test code = 1001) 7.0 K/UL RBC (test code = 1002) 4.27 M/UL HEMOGLOBIN (test code = 1003) 11.8 G/DL HEMATOCRIT (test code = 1004) 36.5 % MCV (test code = 1005) 85.5 fL MCH (test code = 1006) 27.6 PG MCHC (test code = 1007) 32.3 G/DL RDW (test code = 1038) 13.0 % NEUTROPHILS (test code = 1008) 66.1 % LYMPHOCYTES (test code = 1010) 27.0 % MONOCYTES (test code = 1011) 4.4 % EOSINOPHILS (test code = 1012) 1.9 % BASOPHILS (test code = 1013) 0.3 % IMMATURE GRANULOCYTES (test 0.3 % code = 1036) NUCLEATED RBCS (test code = 0.0 /100WBC'S 1065) PLATELET COUNT (test code = 285 K/UL 1015) ABSOLUTE NEUTROPHILS (test code 4.64 K/UL = 1066) ABSOLUTE LYMPHOCYTES (test code 1.89 K/UL = 1067) ABSOLUTE MONOCYTES (test code = 0.31 K/UL 1068) ABSOLUTE EOSINOPHILS (test code 0.13 K/UL = 1040) ABSOLUTE BASOPHILS (test code = 0.02 K/UL 1069) ABS IMMATURE GRANULOCYTES (test 0.02 K/UL code = 1020) ABS NUCLEATED RBCS (test code = 0.00 K/UL 66395) CBC W/AUTO [id number] 00:00:00 Test Item Value Reference Range Interpretation Comments WBC (test code = 1001) 7.0 K/UL RBC (test code = 1002) 4.27 M/UL HEMOGLOBIN (test code = 1003) 11.8 G/DL HEMATOCRIT (test code = 1004) 36.5 % MCV (test code = 1005) 85.5 fL MCH (test code = 1006) 27.6 PG MCHC (test code = 1007) 32.3 G/DL RDW (test code = 1038) 13.0 % NEUTROPHILS (test code = 1008) 66.1 % LYMPHOCYTES (test code = 1010) 27.0 % MONOCYTES (test code = 1011) 4.4 % EOSINOPHILS (test code = 1012) 1.9 % BASOPHILS (test code = 1013) 0.3 % IMMATURE GRANULOCYTES (test 0.3 % code = 1036) NUCLEATED RBCS (test code = 0.0 /100WBC'S 1065) PLATELET COUNT (test code = 285 K/UL 1015) ABSOLUTE NEUTROPHILS (test code 4.64 K/UL = 1066) ABSOLUTE LYMPHOCYTES (test code 1.89 K/UL = 1067) ABSOLUTE MONOCYTES (test code = 0.31 K/UL 1068) ABSOLUTE EOSINOPHILS (test code 0.13 K/UL = 1040) ABSOLUTE BASOPHILS (test code = 0.02 K/UL 1069) ABS IMMATURE GRANULOCYTES (test 0.02 K/UL code = 1020) ABS NUCLEATED RBCS (test code = 0.00 K/UL 31514) COMPREHENSIVE METABOLIC [id number] 00:00:00 Test Item Value Reference Range Interpretation Comments GLUCOSE (test code = 2217) 76 MG/DL BUN (test code = 2208) 7 MG/DL CREATININE (test code = 2214) 0.80 MG/DL eGFR (2020 CKD-EPI) (test 104 ML/MIN/1.73 code = 59285) CALC BUN/CREAT (test code = 9 RATIO 2235) SODIUM (test code = 2231) 140 MEQ/L POTASSIUM (test code = 2228) 3.8 MEQ/L CHLORIDE (test code = 2215) 104 MEQ/L CARBON DIOXIDE (test code = 27 MEQ/L 2206) CALCIUM (test code = 2209) 9.3 MG/DL PROTEIN, TOTAL (test code = 6.9 G/DL 2228) ALBUMIN (test code = 2201) 4.0 G/DL CALC GLOBULIN (test code = 2.9 G/DL 2240) CALC A/G RATIO (test code = 1.4 RATIO 2234) BILIRUBIN, TOTAL (test code = 0.7 MG/DL 2206) ALKALINE PHOSPHATASE (test 57 U/L code = 2204) AST (test code = 2218) 12 U/L ALT (test code = 2219) 11 U/L COMPREHENSIVE METABOLIC [id number] 00:00:00 Test Item Value Reference Range Interpretation Comments GLUCOSE (test code = 2217) 76 MG/DL BUN (test code = 2208) 7 MG/DL CREATININE (test code = 2214) 0.80 MG/DL eGFR (2020 CKD-EPI) (test 104 ML/MIN/1.73 code = 93529) CALC BUN/CREAT (test code = 9 RATIO 2235) SODIUM (test code = 2231) 140 MEQ/L POTASSIUM (test code = 2228) 3.8 MEQ/L CHLORIDE (test code = 2215) 104 MEQ/L CARBON DIOXIDE (test code = 27 MEQ/L 220) CALCIUM (test code = 2209) 9.3 MG/DL PROTEIN, TOTAL (test code = 6.9 G/DL 2228) ALBUMIN (test code = 2201) 4.0 G/DL CALC GLOBULIN (test code = 2.9 G/DL 2240) CALC A/G RATIO (test code = 1.4 RATIO 2234) BILIRUBIN, TOTAL (test code = 0.7 MG/DL 2206) ALKALINE PHOSPHATASE (test 57 U/L code = 2204) AST (test code = 2218) 12 U/L ALT (test code = 2219) 11 U/L HEMOGLOBIN [id number] 00:00:00 Test Item Value Reference Range Interpretation Comments HEMOGLOBIN A1c (test code = 44102) 5.0 % HEMOGLOBIN [id number] 00:00:00 Test Item Value Reference Range Interpretation Comments HEMOGLOBIN A1c (test code = 40057) 5.0 % HEMOGLOBIN [id number] 00:00:00 Test Item Value Reference Range Interpretation Comments HEMOGLOBIN A1c (test code = 08917) 5.0 % CBC W/AUTO [id number] 00:00:00 Test Item Value Reference Range Interpretation Comments WBC (test code = 1001) 7.0 K/UL RBC (test code = 1002) 4.27 M/UL HEMOGLOBIN (test code = 1003) 11.8 G/DL HEMATOCRIT (test code = 1004) 36.5 % MCV (test code = 1005) 85.5 fL MCH (test code = 1006) 27.6 PG MCHC (test code = 1007) 32.3 G/DL RDW (test code = 1038) 13.0 % NEUTROPHILS (test code = 1008) 66.1 % LYMPHOCYTES (test code = 1010) 27.0 % MONOCYTES (test code = 1011) 4.4 % EOSINOPHILS (test code = 1012) 1.9 % BASOPHILS (test code = 1013) 0.3 % IMMATURE GRANULOCYTES (test 0.3 % code = 1036) NUCLEATED RBCS (test code = 0.0 /100WBC'S 1065) PLATELET COUNT (test code = 285 K/UL 1015) ABSOLUTE NEUTROPHILS (test code 4.64 K/UL = 1066) ABSOLUTE LYMPHOCYTES (test code 1.89 K/UL = 1067) ABSOLUTE MONOCYTES (test code = 0.31 K/UL 1068) ABSOLUTE EOSINOPHILS (test code 0.13 K/UL = 1040) ABSOLUTE BASOPHILS (test code = 0.02 K/UL 1069) ABS IMMATURE GRANULOCYTES (test 0.02 K/UL code = 1020) ABS NUCLEATED RBCS (test code = 0.00 K/UL 27023) CBC W/AUTO [id number] 00:00:00 Test Item Value Reference Range Interpretation Comments WBC (test code = 1001) 7.0 K/UL RBC (test code = 1002) 4.27 M/UL HEMOGLOBIN (test code = 1003) 11.8 G/DL HEMATOCRIT (test code = 1004) 36.5 % MCV (test code = 1005) 85.5 fL MCH (test code = 1006) 27.6 PG MCHC (test code = 1007) 32.3 G/DL RDW (test code = 1038) 13.0 % NEUTROPHILS (test code = 1008) 66.1 % LYMPHOCYTES (test code = 1010) 27.0 % MONOCYTES (test code = 1011) 4.4 % EOSINOPHILS (test code = 1012) 1.9 % BASOPHILS (test code = 1013) 0.3 % IMMATURE GRANULOCYTES (test 0.3 % code = 1036) NUCLEATED RBCS (test code = 0.0 /100WBC'S 1065) PLATELET COUNT (test code = 285 K/UL 1015) ABSOLUTE NEUTROPHILS (test code 4.64 K/UL = 1066) ABSOLUTE LYMPHOCYTES (test code 1.89 K/UL = 1067) ABSOLUTE MONOCYTES (test code = 0.31 K/UL 1068) ABSOLUTE EOSINOPHILS (test code 0.13 K/UL = 1040) ABSOLUTE BASOPHILS (test code = 0.02 K/UL 1069) ABS IMMATURE GRANULOCYTES (test 0.02 K/UL code = 1020) ABS NUCLEATED RBCS (test code = 0.00 K/UL 06524) CBC W/AUTO [id number] 00:00:00 Test Item Value Reference Range Interpretation Comments WBC (test code = 1001) 7.0 K/UL RBC (test code = 1002) 4.27 M/UL HEMOGLOBIN (test code = 1003) 11.8 G/DL HEMATOCRIT (test code = 1004) 36.5 % MCV (test code = 1005) 85.5 fL MCH (test code = 1006) 27.6 PG MCHC (test code = 1007) 32.3 G/DL RDW (test code = 1038) 13.0 % NEUTROPHILS (test code = 1008) 66.1 % LYMPHOCYTES (test code = 1010) 27.0 % MONOCYTES (test code = 1011) 4.4 % EOSINOPHILS (test code = 1012) 1.9 % BASOPHILS (test code = 1013) 0.3 % IMMATURE GRANULOCYTES (test 0.3 % code = 1036) NUCLEATED RBCS (test code = 0.0 /100WBC'S 1065) PLATELET COUNT (test code = 285 K/UL 1015) ABSOLUTE NEUTROPHILS (test code 4.64 K/UL = 1066) ABSOLUTE LYMPHOCYTES (test code 1.89 K/UL = 1067) ABSOLUTE MONOCYTES (test code = 0.31 K/UL 1068) ABSOLUTE EOSINOPHILS (test code 0.13 K/UL = 1040) ABSOLUTE BASOPHILS (test code = 0.02 K/UL 1069) ABS IMMATURE GRANULOCYTES (test 0.02 K/UL code = 1020) ABS NUCLEATED RBCS (test code = 0.00 K/UL 73222) COMPREHENSIVE METABOLIC [id number] 00:00:00 Test Item Value Reference Range Interpretation Comments GLUCOSE (test code = 2217) 76 MG/DL BUN (test code = 2208) 7 MG/DL CREATININE (test code = 2214) 0.80 MG/DL eGFR (2020 CKD-EPI) (test 104 ML/MIN/1.73 code = 52077) CALC BUN/CREAT (test code = 9 RATIO 2235) SODIUM (test code = 2231) 140 MEQ/L POTASSIUM (test code = 2228) 3.8 MEQ/L CHLORIDE (test code = 2215) 104 MEQ/L CARBON DIOXIDE (test code = 27 MEQ/L 220) CALCIUM (test code = 2209) 9.3 MG/DL PROTEIN, TOTAL (test code = 6.9 G/DL 2228) ALBUMIN (test code = 2201) 4.0 G/DL CALC GLOBULIN (test code = 2.9 G/DL 2240) CALC A/G RATIO (test code = 1.4 RATIO 4) BILIRUBIN, TOTAL (test code = 0.7 MG/DL 2206) ALKALINE PHOSPHATASE (test 57 U/L code = 2204) AST (test code = 2218) 12 U/L ALT (test code = 2219) 11 U/L COMPREHENSIVE METABOLIC [id number] 00:00:00 Test Item Value Reference Range Interpretation Comments GLUCOSE (test code = 2217) 76 MG/DL BUN (test code = 2208) 7 MG/DL CREATININE (test code = 2214) 0.80 MG/DL eGFR (2020 CKD-EPI) (test 104 ML/MIN/1.73 code = 20586) CALC BUN/CREAT (test code = 9 RATIO 2235) SODIUM (test code = 2231) 140 MEQ/L POTASSIUM (test code = 2228) 3.8 MEQ/L CHLORIDE (test code = 2215) 104 MEQ/L CARBON DIOXIDE (test code = 27 MEQ/L 220) CALCIUM (test code = 2209) 9.3 MG/DL PROTEIN, TOTAL (test code = 6.9 G/DL 2228) ALBUMIN (test code = 2201) 4.0 G/DL CALC GLOBULIN (test code = 2.9 G/DL 2240) CALC A/G RATIO (test code = 1.4 RATIO 2234) BILIRUBIN, TOTAL (test code = 0.7 MG/DL 2206) ALKALINE PHOSPHATASE (test 57 U/L code = 2204) AST (test code = 2218) 12 U/L ALT (test code = 2219) 11 U/L HEMOGLOBIN [id number] 00:00:00 Test Item Value Reference Range Interpretation Comments HEMOGLOBIN A1c (test code = 11027) 5.0 % HEMOGLOBIN [id number] 00:00:00 Test Item Value Reference Range Interpretation Comments HEMOGLOBIN A1c (test code = 66219) 5.0 % COMPREHENSIVE METABOLIC [id number] 00:00:00 Test Item Value Reference Range Interpretation Comments GLUCOSE (test code = 2217) 81 MG/DL BUN (test code = 2208) 5 MG/DL CREATININE (test code = 2214) 0.73 MG/DL eGFR AMER. (test code 134 ML/MIN/1.73 = 16658) eGFR NON- AMER. (test 115 ML/MIN/1.73 code = 38787) CALC BUN/CREAT (test code = 7 RATIO [...] CALC GLOBULIN (test code = 2.9 G/DL 2240) CALC A/G RATIO (test code = 1.4 RATIO 2234) BILIRUBIN, TOTAL (test code = 0.7 MG/DL 2206) ALKALINE PHOSPHATASE (test 58 U/L code = 2204) AST (test code = 2218) 15 U/L ALT (test code = 2219) 10 U/L HEMOGLOBIN [id number] 00:00:00 Test Item Value Reference Range Interpretation Comments HEMOGLOBIN A1c (test code = 15804) 4.8 % HEMOGLOBIN [id number] 00:00:00 Test Item Value Reference Range Interpretation Comments HEMOGLOBIN A1c (test code = 98719) 4.8 % HEMOGLOBIN [id number] 00:00:00 Test Item Value Reference Range Interpretation Comments HEMOGLOBIN A1c (test code = 53862) 4.8 % CBC W/AUTO [id number] 00:00:00 Test Item Value Reference Range Interpretation [...] code = 1015) 331 K/UL CBC W/AUTO [id number] 00:00:00 Test Item Value Reference Range Interpretation [...] code = 1015) 331 K/UL CBC W/AUTO [id number] 00:00:00 Test Item Value Reference Range Interpretation [...] code = 1015) 331 K/UL CBC W/AUTO [id number] 00:00:00 Test Item Value Reference Range Interpretation [...] code = 1015) 331 K/UL CBC W/AUTO [id number] 00:00:00 Test Item Value Reference Range Interpretation [...] COUNT (test code = 1015) 331 K/UL [id number] 00:00:00 Test Item Value Reference Range Interpretation Comments TSH, THIRD GENERATION (test code 0.740 UIU/ML = 2821) [id number] 00:00:00 Test Item Value Reference Range Interpretation Comments TSH, THIRD GENERATION (test code 0.740 UIU/ML = 2821) [id number] 00:00:00 Test Item Value Reference Range Interpretation Comments TSH, THIRD GENERATION (test code 0.740 UIU/ML = 2821) COMPREHENSIVE METABOLIC [id number] 00:00:00 Test Item Value Reference Range Interpretation Comments GLUCOSE (test code = 2217) 81 MG/DL BUN (test code = 2208) 5 MG/DL CREATININE (test code = 2214) 0.73 MG/DL eGFR AMER. (test code 134 ML/MIN/1.73 = 45811) eGFR NON- AMER. (test 115 ML/MIN/1.73 code = 84603) CALC BUN/CREAT (test code = 7 RATIO [...] CALC GLOBULIN (test code = 2.9 G/DL 2240) CALC A/G RATIO (test code = 1.4 RATIO 2233) BILIRUBIN, TOTAL (test code = 0.7 MG/DL 2206) ALKALINE PHOSPHATASE (test 58 U/L code = 2204) AST (test code = 2218) 15 U/L ALT (test code = 2219) 10 U/L [id number] 00:00:00 Test Item Value Reference Range Interpretation Comments TSH, THIRD GENERATION (test code 0.740 UIU/ML = 2821) COMPREHENSIVE METABOLIC [id number] 00:00:00 Test Item Value Reference Range Interpretation Comments GLUCOSE (test code = 2217) 81 MG/DL BUN (test code = 2208) 5 MG/DL CREATININE (test code = 2214) 0.73 MG/DL eGFR AMER. (test code 134 ML/MIN/1.73 = 78343) eGFR NON- AMER. (test 115 ML/MIN/1.73 code = 65059) CALC BUN/CREAT (test code = 7 RATIO 2235) SODIUM (test code = 2231) 140 MEQ/L POTASSIUM (test code = 2228) 3.9 MEQ/L CHLORIDE (test code = 2215) 105 MEQ/L CARBON DIOXIDE (test code = 21 MEQ/L 220) CALCIUM (test code = 2209) 9.4 MG/DL PROTEIN, TOTAL (test code = 7.1 G/DL 222) ALBUMIN (test code = 2201) 4.2 G/DL CALC GLOBULIN (test code = 2.9 G/DL 2240) CALC A/G RATIO (test code = 1.4 RATIO 2234) BILIRUBIN, TOTAL (test code = 0.7 MG/DL 2206) ALKALINE PHOSPHATASE (test 58 U/L code = 2204) AST (test code = 2218) 15 U/L ALT (test code = 2219) 10 U/L HEMOGLOBIN [id number] 00:00:00 Test Item Value Reference Range Interpretation Comments HEMOGLOBIN A1c (test code = 64717) 4.8 % HEMOGLOBIN [id number] 00:00:00 Test Item Value Reference Range Interpretation Comments HEMOGLOBIN A1c (test code = 41346) 4.8 % HEMOGLOBIN [id number] 00:00:00 Test Item Value Reference Range Interpretation Comments HEMOGLOBIN A1c (test code = 39921) 4.8 % [id number] 00:00:00 Test Item Value Reference Range Interpretation Comments TSH, THIRD GENERATION (test code 0.740 UIU/ML = 2821) COMPREHENSIVE METABOLIC [id number] 00:00:00 Test Item Value Reference Range Interpretation Comments GLUCOSE (test code = 2217) 81 MG/DL BUN (test code = 2208) 5 MG/DL CREATININE (test code = 2214) 0.73 MG/DL eGFR AMER. (test code 134 ML/MIN/1.73 = 19280) eGFR NON- AMER. (test 115 ML/MIN/1.73 code = 34878) CALC BUN/CREAT (test code = 7 RATIO [...] ALT (test code = 2219) 10 U/L CBC W/AUTO [id number] 00:00:00 Test Item Value Reference Range Interpretation [...] COUNT (test code = 1015) 331 K/UL HEMOGLOBIN [id number] 00:00:00 Test Item Value Reference Range Interpretation Comments HEMOGLOBIN A1c (test code = 73331) 4.8 % CBC W/AUTO [id number] 00:00:00 Test Item Value Reference Range Interpretation [...] code = 1015) 331 K/UL CBC W/AUTO [id number] 00:00:00 Test Item Value Reference Range Interpretation [...] COUNT (test code = 1015) 331 K/UL [id number] 00:00:00 Test Item Value Reference Range Interpretation Comments TSH, THIRD GENERATION (test code 0.740 UIU/ML = 2821) [id number] 00:00:00 Test Item Value Reference Range Interpretation Comments TSH, THIRD GENERATION (test code 0.740 UIU/ML = 2821) [id number] 00:00:00 Test Item Value Reference Range Interpretation Comments TSH, THIRD GENERATION (test code 0.740 UIU/ML = 2821) COMPREHENSIVE METABOLIC [id number] 00:00:00 Test Item Value Reference Range Interpretation Comments GLUCOSE (test code = 2217) 81 MG/DL BUN (test code = 2208) 5 MG/DL CREATININE (test code = 2214) 0.73 MG/DL eGFR AMER. (test code 134 ML/MIN/1.73 = 87513) eGFR NON- AMER. (test 115 ML/MIN/1.73 code = 49205) CALC BUN/CREAT (test code = 7 RATIO [...] (test code = 2219) 10 U/L HEMOGLOBIN [id number] 00:00:00 Test Item Value Reference Range Interpretation Comments HEMOGLOBIN A1c (test code = 97325) 4.8 %
[2022-08-28] MEDS ORDERED: HYDROCODONE/APAP 10/325 TAB ONE (22:55)
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
[2022-08-29 01:19] VITALS: TEMP 97.7; O2SAT 100
[2022-08-29 01:21] VITALS: BP 109/57
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
== END 2022-08-29 01:03 | disposition home or self-care (01) ==
LOC: ER 22:19
DX: M54.50 Low back pain, unspecified (principal); V49.40XA Driver injured in collision with unspecified motor vehicles in traffic accident, initial encounter
CPT/HCPCS: 72100; 99283

== ENCOUNTER 2023-01-04 11:55 | Emergency (ER) | payer SELFPAY ==
--- OUTSIDE RECORDS SUMMARY | 2023-01-04 12:00 | XMS REPORT | Continuity of Care Document ---
:1995 Author Organization [facility] t Address [address] [facility] [address] [place] [address] Care Team Providers Name Role Phone Beti Segovia Primary Care Physician [phone] Eda Fischer Attending Clinician Doctor Unassigned, [place] Attending Clinician Unavailable ROSS BELCHER Attending Clinician Unavailable , [facility] Attending Clinician Unavailable Josh Clark Attending Clinician Payers Payer Name Policy Type Policy Number Effective Date Expiration Date [facility] [id number] 2019 [facility] MEDICAID 00:00:00 Problems Condition Condition Condition Status Onset Resolution Last Treating Co mments Source Name Details Category Date Date Treatment Clinician Date Obesity Obesity Disease Active 2018-07 Univers (BMI (BMI 1-21 ity of 30-39.9) 30-39.9) 00:00: [place] [address] Medical Branch Multiparou Multiparou Disease Active 2018-07 U poonam s s 1-20 ity of 00:00: [place] [address] Medical Branch Encounter Encounter Disease Active 2018-07 Overview: Univers for for 07-10 Formattin ity of sterilizat sterilizat 00:00: g of this [place] [facility] 00 note Medical might be Branch different from the original. Added automatic ally from request for surgery [id number] Allergies, Adverse Reactions, Alerts Allergy Allergy Status Severity Reaction(s) Onset Inactive Treating Comm ents Source Name Type Date Date Clinician NO KNOWN Drug Active Univers ALLERGIE Class ity of S [facility] Social History Social Habit Start Date Stop Date Quantity Comments Source History of tobacco Cigarette Smoker University of use [facility] History [facility] University o f Alcohol Frequency [facility] edical Branch History [place] University o f Alcohol Std Drinks [place] [facility] History [facility] University o f Alcohol Binge [place] Medic al Branch Exposure to Not sure University SARS-CoV-2 (event) [facility] Alcohol intake 2021-04-10 2021-04-10 Current drinker Unive rsity of 00:00:00 00:00:[address] [facility] (finding) [place] Alcohol Comment 2019-05-29 2019-05-29 Occasional Universit y of 00:00:00 00:00:00 Drinker [facility] Cigarettes smoked 2019-05-03 2019-05-03 Univers ity of current (pack per 00:00:00 00:00:00 [facility] ) - Reported Branch Tobacco use and 2019-05-03 2019-05-03 Smokeless tobacco Un iversity of exposure 00:00:00 00:00:00 non-user [facility] Sex Assigned At [birth year] Universit y of 00:00:00 00:00:00 [facility] Smoking Status Start Date Stop Date Source Unknown [facility] Heavy tobacco smoker 2019-05-03 00:00:00 [facility] ity of [facility] Medications Ordered Filled Start Stop Current Ordering Indication Dosage Frequency Signature Comments Components Source Medication Medication Date Date Medication? Clinician (SIG) Name Name TAKE No TABLET BY 08 MOUTH EVERY 00:00: 6 HOURS 00 NEEDED [...] 10 mg 04/10/21 at 1900, STAT ketorolac 2021-1 2021- No 60mg 60 mg, Unive rs (TORADOL) 0-03 10-02 Intramuscu ity of injection 00:00: 23:18 lar, ONCE, [place] 60 mg 00 :00 1 dose, On Medical Sat Branch 04/10/21 at 1900, REGGIE
Fa culty member approving Restricted medication : EMERGENCY ROOM, ibuprofen 2020-07 Yes [id number] 800mg Take 1 Univers 800 mg 0-02 tablet by ity of tablet 00:00: mouth [place] 00 every 8 Medical (eight) Branch hours as needed for Pain (scale 4-6). methocarbam 2020-07 Yes [id number] 750mg Take 1 Univers oL 750 mg 0-02 tablet by ity o f tablet 00:00: mouth 4 [place] 00 (four) Medical times Branch daily as needed for Pain (scale 7-10). ibuprofen 2020-07 Yes [id number] 800mg Take 1 Univers 800 mg 0-02 tablet by ity of tablet 00:00: mouth [place] 00 every 8 Medical (eight) Branch hours as needed for Pain (scale 4-6). methocarbam 2020-07 Yes [id number] 750mg Take 1 Univers oL 750 mg 0-02 tablet by ity o f tablet 00:00: mouth 4 [place] 00 (four) Medical times Branch daily as needed for Pain (scale 7-10). predniSONE 2020-07 No [id number] 40mg Take 2 Univers 20 mg 0-02 10-08 tablets by ity of tablet 00:00: 04:59 mouth [place] 00 :00 daily for Medical 5 days. Branch ibuprofen 2018-07 Yes [id number] 800mg Take 1 Univers 800 mg 1-21 tablet by ity of tablet 00:00: mouth [place] 00 every 6 Medical (six) Branch hours as needed for Pain (scale 4-6). HYDROcodone 2018-07 Yes [id number] 1{tbl} Take 1 Univers -acetaminop 1-21 tablet by ity of hen 5-325 00:00: mouth [place] mg tablet 00 every 6 Medical (six) Branch hours as needed for Pain (scale 7-10). ibuprofen 2018-07 Yes [id number] 800mg Take 1 Univers 800 mg 1-21 tablet by ity of tablet 00:00: mouth [place] 00 every 6 Medical (six) Branch hours as needed for Pain (scale 4-6). HYDROcodone 2018-07 Yes [id number] 1{tbl} Take 1 Univers -acetaminop 1-21 tablet by ity of hen 5-325 00:00: mouth [place] mg tablet 00 every 6 Medical (six) Branch hours as needed for Pain (scale 7-10). ibuprofen 2018-07 Yes [id number] 800mg Take 1 Univers 800 mg 1-21 tablet by ity of tablet 00:00: mouth [place] 00 every 6 Medical (six) Branch hours as needed for Pain (scale 4-6). HYDROcodone 2018-07 Yes [id number] 1{tbl} Take 1 Univers -acetaminop 1-21 tablet [...] Source Systolic blood 2021-04-10 23:26:49 138 mm[Hg] [facility] Diastolic blood 2021-04-10 23:26:49 98 mm[Hg] [facility] Heart rate 2021-04-10 23:26:49 86 /min [facility] Body temperature 2021-04-10 23:26:49 36.28 [facility] Respiratory rate 2021-04-10 23:26:49 16 /min [facility] Body weight 2021-04-10 22:39:00 81.647 kg [facility] BMI 2021-04-10 22:39:00 30.42 kg/m2 [facility] Oxygen saturation in 2021-04-10 22:39:00 100 /min [facility] blood by [facility] Pulse oximetry Branch Heart Rate 2022-03-26 12:21:00 [...] Procedure Date / Time Performed Performing Clinician [facility] e CONSENT/REFUSAL FOR 2022-03-28 17:31:56 Doctor Unassigned, No Un iversity of [place] DIAGNOSIS AND Name Medical Branch TREATMENT NOTICE OF PRIVACY 2021-04-10 22:30:00 Doctor Unassigned, No Univ ersity of [place] PRACTICES Name Medical Branch CONSENT/REFUSAL FOR 2021-04-10 22:29:42 Doctor Unassigned, No Un iversity of [place] DIAGNOSIS AND Name Medical Branch TREATMENT SLEEP STUDY DATA 2019-02-06 05:01:00 Doctor Unassigned, No Unive rsity of [place] REPORT Name Medical Branch Plan of Care Planned Activity Planned Date Details Comments Source Goal Plan of Care Note [code = 80622-0] Goal Plan of Care Note [code = 09046-3] Goal Plan of Care Note [code = 45392-9] Goal Plan of Care Note [code = 05636-0] Goal Plan of Care Note [code = 13746-9] Goal Plan of Care Note [code = 96367-2] Goal Plan of Care Note [code = 28019-9] Goal Plan of Care Note [code = 32634-1] Goal Plan of Care Note [code = 77013-0] Goal Plan of Care Note [code = 81943-6] Goal Plan of Care Note [code = 09039-3] Goal Plan of Care Note [code = 71985-5] Goal Plan of Care Note [code = 67668-9] Goal Plan of Care Note [code = 42667-1] Goal Plan of Care Note [code = 08559-6] Goal Plan of Care Note [code = 15737-8] Goal Plan of Care Note [code = 47773-4] Goal Plan of Care Note [code = 93994-0] Goal Plan of Care Note [code = 41412-2] Goal Plan of Care Note [code = 06357-9] Goal Plan of Care Note [code = 32166-1] Goal Plan of Care Note [code = 83030-3] Goal Plan of Care Note [code = 52252-4] Goal Plan of Care Note [code = 14470-7] Goal Plan of Care Note [code = 53155-4] Goal Plan of Care Note [code = 00923-8] Goal Plan of Care Note [code = 07962-1] Goal Plan of Care Note [code = 56190-1] Goal Plan of Care Note [code = 32056-1] Goal Plan of Care Note [code = 31210-4] Goal Plan of Care Note [code = 67484-0] Goal Plan of Care Note [code = 43539-9] Goal Plan of Care Note [code = 51204-3] Goal Plan of Care Note [code = 98602-3] Goal Plan of Care Note [code = 55225-7] Encounters Start End Encounter Admission Attending Care Care Encounter Source Date/Time Date/Time Type Type Clinicians Facility Department ID 2021-05-11 Emergency [facility] [id number] Univers 03:20:38 ity [facility] 2022-04-20 2022-04-20 Outpatient SFA SFA [id number] Xavi 08:09:20 08:09:20 1012 F Osiel 2022-03-28 2022-03-28 Emergency X [facility] ERT [id number] Univers 12:48:00 [facility]01[facility] 2022-03-28 Emergency [facility] [id number] Univers 12:48:00 13:01:00 [place] 350.1.13.10 i [facility] 4.2.7.2.686 [facility] [id number] [address] 2022-03-26 2022-03-26 Outpatient [id number]- [id number] [id number] 00:00:00 00:00:00 Visit 8eo8-8p0x ad3-4f9f-a -y9u7-1w1 3a6-4b3512 [id number] b6y826 2022-03-17 2022-03-17 Outpatient [id number]- [id number] 8e mn698g-5 00:00:00 00:00:00 Visit 692b-4998 92b-4998-a -j268-g87 045-c72e4f n0j282w3r 478c5c 2022-01-18 2022-01-18 Outpatient u1xg5z61- [id number] [id number] tg9w00-8 00:00:00 00:00:00 Visit 8691-4c59 691-4c59-a -ff25-215 m22-69355i 70e3y9p3u 0f4f3f 2021-04-10 2021-04-10 Emergency Vargas, [facility] [id number] Univers 17:40:00 20:56:00 Eda Keenan 350.1.13.10 i ty of [place] 4.2.7.2.686 [facility] [id number] [facility] 084 Branch 2021-04-10 2021-04-10 Orders Doctor REJI [id number] [place] [facility] 00:00:00 00:00:00 Only Unassigned, ELENA 350.1.13.10 ity of [facility] 4.2.7.2.686 [facility] [id number] [facility] 009 Branch 2020-10-13 2020-10-13 Outpatient Baldomero BELCHER, [facility] [id number] [facility] 14:00:00 14:00:00 ROSS caal [facility] 2019-02-06 2019-02-06 Supervisor [place] 1, [facility] Sleep [facility] Bed [facility] 1. 2.840.114 [id number] [facility] 14:31:28 17:01:28 Visit Josh lCark 350.1.13. 10 ity of [place] 4.2.7.2.6 [facility] [id number] [facility] 193 Branch 2019-02-06 2019-02-06 Supervisor [place] 1, [facility] 1.2.840.114 [id number] 14:31:28 17:01:28 Visit Sleep Lab [place] 350.1.13.10 Bed [place] [address] [place] [address] [id number] 193 2019-02-06 2019-02-06 Orders Doctor REJI 1.2.840.114 [id number] 00:00:00 00:00:00 Only Unassigned, ELENA 350.1.13.10 [facility] 4.2.7.2.686 [id number] 2019-02-06 2019-02-06 Orders Doctor REJI 1.2.840.114 [id number] Univers 00:00:00 00:00:00 Only Unassigned, ELENA 350.1.13.10 ity of [facility] 4.2.7.2.686 Frank as [id number] [facility] 009 Branch Results Test Description Test Time Test Comments [...] The previously reported abnormal Pap (accession #[id number]) isreviewed. The atypical cells identified on the [...] OF TISSUE PIECES: 1SUBMITTED IN C ASSETTE(S): n0SRXPOS: FormalinCOMMENT S:Entirely submitted intact. B) SPECIMEN LAB ELED: Cervix, 1:00SIZE/WEIGHT : 0.3x0.3x0.1 cm SPECIMEN COLOR: TanNUMBE R OF TISSUE PIECES: 1SUBMITTED IN C ASSETTE(S): n1BUMOGV: FormalinCOMMENT S:Entirely submitted intact. C) SPECIMEN LAB ELED: EndocervixSIZE/WEIGHT: <0.1x0.1x0.1 cm AggregateSPECIMEN COLOR: TanNUMBER OF TI SSUE PIECES: multipleSUBMITT ED IN CASSETTE(S): d7ZJNIWF: FormalinCOMMENT S:Irregularly shaped tissue fragments with mucus. Extremely scant,filtered and entirely submitted. Specimen may no t surviveprocessing. PATHOLOGIST: (test code = 8250) (NOTE) Cedric Haile M.D. Specimens processed at [facility], [address] [place] [address], [place] [address], , CLIA: [id number] interpreted at [facility], [address] [address], Phone: ,CLIA: [id number] CPT: (test code = 8400) (NOTE) 8830 5x3 UNLESS OTHERWISE INDICATED, ALL TESTING PERFORM ED [facility]CL[facility]ICAL PATHOLOG[facility] LABORATORIES, I [place]. [address] [place] [address] LABORATOR Y DIRECTOR: VAISHALI WILL M.D. CLIA NUMBER [id number] CAP ACCREDITATION N O. [id number] NOTE:2022-04-07 06:05:09 Test Item Value Reference Range [...] TO THE LABORATORY SCAN CRYSTAL DEPARTMENT AT [phone]. PHYSICIAN'S SIG NATURE DATE UNLESS OTHERWISE INDIC ATED, ALL TESTING PERFORM ED ATCLINICAL PATHOLOGY LABOR [facility] [address] [place] [address] LABORATOR Y DIRECTOR: VAISHALI HALEY M.D. CLIA NUMBER [id number] CAP ACCREDITATION N O. [id number] HPV HIGH RISK WITH GENOTYPE, [id number] 14:14:38 Test Item Value Reference Range Interpretation Comments HPV HIGH RISK INTERP POSITIVE NEGATIVE A (test code = 42478) HPV 16 (test code = NEGATIVE 51543) HPV 18 (test code = NEGATIVE 87321) HPV, HR, OTHER POSITIVE A Testing meth odology is GENOTYPES (test code real-ti me PCR utilizing = 94199) hydrolysis prob es with the Saúl Natalia [...] sp ecimen sampling error. PAP TEST, THINPREP, [id number] 11:12:56 Test Item Value Reference Interpretation Comments Range SOURCE: (test code Endocervical = 8001) SLIDES: (test code 1 = 8011) LMP: (test code = 02/26/2022 8021) SPECIMEN ADEQUACY: (NOTE) Satisfac tormelina for (test code = 38893) evaluati on. Endocervical cells/transform ation zone component present. INTERPRETATION: ASCUS/EPITH. A -------- (test code = 89550) ABNORMALITY; SEE ---- BELOW ----- EPITHELIAL CELL ABNORMALITY Atypical squamo us cells of undetermined significance (ASC-US)------- ----- ----- ----- --- CONCRETE STONE FINISHER: TAVON Vicente (test code = 8101) (ASCP) PATHOLOGIST Nancy Kirkland, INTERPRETATION BY: Nate (test code = 8122) LOCATION: (test (NOTE) Specimens pr ocessed code = 51547) at [facility], [address] [facility] [place] [address], , CLIA: [id number] 3and interpreted at [facility], [address], Path [place] [place] [address], Phone: , CLIA: [id number] CPT: (test code = (NOTE) 79431, 881 75 UNLESS 8140) OTHERWISE INDIC ATED, [...] ESS OTHERWISE INDIC ATED, ALL TESTING PERFORMED [facility] PATHOLOGY LABORATORIES, [facility]. [address] [place] [id number] [place] [address] DIRECTOR: VAISHALI WILL M.D. CLIA NUMBER [id number] CAP ACCREDNOV[facility] [place]. [id number] VAGINAL PATHOGENS DNA [id number] 17:32:34 Test Item Value Reference Range Interpretation Comments HAY SPECIES (test NEGATIVE NEGATIVE code = ) G. VAGINALIS (test POSITIVE NEGATIVE A code = ) T. VAGINALIS (test NEGATIVE NEGATIVE UNLESS O THERWISE code = ) INDICATED, ALL TESTING PERFORMED [facility] PATHOLOGY [facility], [facility]. [address] [place], [place] [id number] 4 LABORATORY DIRE CTOR: VAISHALI HALEY M.D. CLIA NUMBER [id number] [facility] ACCREDNOVANT HE[facility] [place]. [id number] HIV 1/2 4TH GEN, RFLX [id number] 03:12:57 Test Item Value Reference Range Interpretation Comments HIV 1/2 4TH GEN, RFLX CONF (test NON-REACTIVE NON-REACTIVE code = 3514) HEPATITIS PANEL, [id number] 03:12:57 Test Item Value Reference Range Interpretation Comments HEPATITIS A IgM (test NON-REACTIVE NON-REACTIVE code = 91919) HEPATITIS B CORE IgM NON-REACTIVE NON-REACTIVE (test code = 4644) HEPATITIS B SURF AG NON-REACTIVE NON-REACTIVE (test code = 2739) HEPATITIS C ANTIBODY NON-REACTIVE NON-REACTIVE (test code = 4675) INTERPRETATION (NOTE) Hepatitis A HEPATITIS A: (test code sero logy shows no = 2552) evidence of acu te hepatitis A. INTERPRETATION (NOTE) Hepatitis B HEPATITIS B: (test code sero logy shows no = 32172) evidence of acu te hepatitis B and no indication of exposure to hepatitis B vir us in the previous yuliet eight months. INTERPRETATION (NOTE) Hepatitis C HEPATITIS C: (test code sero logy shows no = 98450) evidence of exposure to hepatitisC viru s at this time. I t can take up to 12 months after exposure tothe hepatitis C vir us for antibodies to become detectab le in the blood in certain patient s. [id number] 23:09:13 Test Item Value Reference Range Interpretation Comments RPR RESULT (test code = NON-REACTIVE NON-REACTIVE 3501) RPR TITER (test code = 3500) NOT INDIC. TITER NOT INDIC. CT/NG, NAAT, [id number] 17:03:08 Test Item Value Reference Range Interpretation Comments GONORRHEA, NAAT NEGATIVE NEGATIVE IMPORTA NT NOTICE: SEE (test code = [place] [address]) [email or web address] [email or web address] Note: Assay methodology is nucleic acid amplification b y chief mate m ediated amplification ( TMA) utilizing the A ptima Combo 2 Assay. CHLAMYDIA, NAAT NEGATIVE NEGATIVE IMPORTA NT NOTICE: SEE (test code = [place] [address]) [email or web address] [email or web address] Note: Assay methodology is nucleic acid amplification b y chief mate m ediated amplification ( TMA) utilizing the A ptima Combo 2 Assay. HEMOGLOBIN [id number] 08:46:17 Test Item Value Reference Range Interpretation Comments HEMOGLOBIN A1c (test 5.0 % 4.2-5.6 UNLESS OTHERWISE code = 87389) INDICATED, ALL TESTING PERFORMED [facility] PATHOLOGY LABOR [facility] [address] [place] [address] [facility] DIRECTOR: VAISHALI WILL M.D. CLIA NUMBER [id number] CAP ACCREDITATION N O. [id number] CBC W/AUTO DIFF WITH [id number] 08:31:29 Test Item Value Reference Range Interpretation [...] RBCS 0.00 K/UL 0.00-0.11 (test code = 39001) COMPREHENSIVE METABOLIC [id number] 06:10:10 Test Item Value Reference Range Interpretation Comments GLUCOSE (test code = 76 MG/DL 70-99 2217) BUN (test code = 7 MG/DL 6-20 2207) CREATININE (test 0.80 MG/DL 0.60-1.30 code = 2213) eGFR (2020 CKD-EPI) 104 >60 (test code = 50197) ML/MIN/1.73 CALC BUN/CREAT (test 9 RATIO 6-28 code = 2235) SODIUM (test code = 140 MEQ/L 637-077 8390) POTASSIUM (test code 3.8 MEQ/L 3.5-5.4 = [...] = 11 U/L 5-40 2218) CBC W/AUTO [id number] 00:00:00 Test Item Value Reference Range Interpretation [...] NUCLEATED RBCS (test code = 0.00 K/UL 04439) CBC W/AUTO [id number] 00:00:00 Test Item Value Reference Range Interpretation [...] NUCLEATED RBCS (test code = 0.00 K/UL 33764) CBC W/AUTO [id number] 00:00:00 Test Item Value Reference Range Interpretation [...] NUCLEATED RBCS (test code = 0.00 K/UL 19781) COMPREHENSIVE METABOLIC [id number] 00:00:00 Test Item Value Reference Range Interpretation Comments GLUCOSE (test code = 2217) 76 MG/DL BUN (test code = 2208) 7 MG/DL CREATININE (test code = 2214) 0.80 MG/DL eGFR (2020 CKD-EPI) (test 104 ML/MIN/1.73 code = 79497) CALC BUN/CREAT (test code = 9 RATIO 2235) SODIUM (test code = 2231) 140 MEQ/L POTASSIUM (test code = 2228) 3.8 MEQ/L CHLORIDE (test code = 2215) 104 MEQ/L CARBON DIOXIDE (test code = 27 MEQ/L 2205) CALCIUM (test code = 2209) 9.3 MG/DL [...] code = 2219) 11 U/L COMPREHENSIVE METABOLIC [id number] 00:00:00 Test Item Value Reference Range Interpretation Comments GLUCOSE (test code = 2217) 76 MG/DL BUN (test code = 2208) 7 MG/DL CREATININE (test code = 2214) 0.80 MG/DL eGFR (2020 CKD-EPI) (test 104 ML/MIN/1.73 code = 15951) CALC BUN/CREAT (test code = 9 RATIO 2235) SODIUM (test code = 2231) 140 MEQ/L POTASSIUM (test code = 2228) 3.8 MEQ/L CHLORIDE (test code = 2215) 104 MEQ/L CARBON DIOXIDE (test code = 27 MEQ/L 2205) CALCIUM (test code = 2209) 9.3 MG/DL [...] (test code = 2219) 11 U/L HEMOGLOBIN [id number] 00:00:00 Test Item Value Reference Range Interpretation Comments HEMOGLOBIN A1c (test code = 15582) 5.0 % HEMOGLOBIN [id number] 00:00:00 Test Item Value Reference Range Interpretation Comments HEMOGLOBIN A1c (test code = 15543) 5.0 % HEMOGLOBIN [id number] 00:00:00 Test Item Value Reference Range Interpretation Comments HEMOGLOBIN A1c (test code = 43361) 5.0 % CBC W/AUTO [id number] 00:00:00 Test Item Value Reference Range Interpretation [...] NUCLEATED RBCS (test code = 0.00 K/UL 63540) CBC W/AUTO [id number] 00:00:00 Test Item Value Reference Range Interpretation [...] NUCLEATED RBCS (test code = 0.00 K/UL 43534) CBC W/AUTO [id number] 00:00:00 Test Item Value Reference Range Interpretation [...] NUCLEATED RBCS (test code = 0.00 K/UL 80449) COMPREHENSIVE METABOLIC [id number] 00:00:00 Test Item Value Reference Range Interpretation Comments GLUCOSE (test code = 2217) 76 MG/DL BUN (test code = 2208) 7 MG/DL CREATININE (test code = 2214) 0.80 MG/DL eGFR (2020 CKD-EPI) (test 104 ML/MIN/1.73 code = 29546) CALC BUN/CREAT (test code = 9 RATIO 2235) SODIUM (test code = 2231) 140 MEQ/L POTASSIUM (test code = 2228) 3.8 MEQ/L CHLORIDE (test code = 2215) 104 MEQ/L CARBON DIOXIDE (test code = 27 MEQ/L 2205) CALCIUM (test code = 2209) 9.3 MG/DL [...] code = 2219) 11 U/L COMPREHENSIVE METABOLIC [id number] 00:00:00 Test Item Value Reference Range Interpretation Comments GLUCOSE (test code = 2217) 76 MG/DL BUN (test code = 2208) 7 MG/DL CREATININE (test code = 2214) 0.80 MG/DL eGFR (2020 CKD-EPI) (test 104 ML/MIN/1.73 code = 89769) CALC BUN/CREAT (test code = 9 RATIO [...] BILIRUBIN, TOTAL (test code = 0.7 MG/DL 7) ALKALINE PHOSPHATASE (test 57 U/L code = 2204) AST (test code = 2218) 12 U/L ALT (test code = 2219) 11 U/L HEMOGLOBIN [id number] 00:00:00 Test Item Value Reference Range Interpretation Comments HEMOGLOBIN A1c (test code = 76665) 5.0 % HEMOGLOBIN [id number] 00:00:00 Test Item Value Reference Range Interpretation Comments HEMOGLOBIN A1c (test code = 54821) 5.0 % HEMOGLOBIN [id number] 00:00:00 Test Item Value Reference Range Interpretation Comments HEMOGLOBIN A1c (test code = 81016) 5.0 % CBC W/AUTO [id number] 00:00:00 Test Item Value Reference Range Interpretation [...] code = 1015) 331 K/UL CBC W/AUTO [id number] 00:00:00 Test Item Value Reference Range Interpretation [...] code = 1015) 331 K/UL CBC W/AUTO [id number] 00:00:00 Test Item Value Reference Range Interpretation [...] code = 1015) 331 K/UL CBC W/AUTO [id number] 00:00:00 Test Item Value Reference Range Interpretation [...] COUNT (test code = 1015) 331 K/UL [id number] 00:00:00 Test Item Value Reference Range Interpretation Comments TSH, THIRD GENERATION (test code 0.740 UIU/ML = 2821) [id number] 00:00:00 Test Item Value Reference Range Interpretation Comments TSH, THIRD GENERATION (test code 0.740 UIU/ML = 2821) [id number] 00:00:00 Test Item Value Reference Range Interpretation Comments TSH, THIRD GENERATION (test code 0.740 UIU/ML = 2821) COMPREHENSIVE METABOLIC [id number] 00:00:00 Test Item Value Reference Range Interpretation Comments GLUCOSE (test code = 2217) 81 MG/DL BUN (test code = 2208) 5 MG/DL CREATININE (test code = 2214) 0.73 MG/DL eGFR AMER. (test code 134 ML/MIN/1.73 = 40965) eGFR NON- AMER. (test 115 ML/MIN/1.73 code = 91348) CALC BUN/CREAT (test code = 7 RATIO 2235) SODIUM (test code = 2231) 140 MEQ/L POTASSIUM (test code = 2228) 3.9 MEQ/L CHLORIDE (test code = 2215) 105 MEQ/L CARBON DIOXIDE (test code = 21 MEQ/L 2206) CALCIUM (test code = 2209) 9.4 MG/DL [...] ALT (test code = 2219) 10 U/L [id number] 00:00:00 Test Item Value Reference Range Interpretation Comments TSH, THIRD GENERATION (test code 0.740 UIU/ML = 2821) COMPREHENSIVE METABOLIC [id number] 00:00:00 Test Item Value Reference Range Interpretation Comments GLUCOSE (test code = 2217) 81 MG/DL BUN (test code = 2208) 5 MG/DL CREATININE (test code = 2214) 0.73 MG/DL eGFR AMER. (test code 134 ML/MIN/1.73 = 29460) eGFR NON- AMER. (test 115 ML/MIN/1.73 code = 88069) CALC BUN/CREAT (test code = 7 RATIO [...] (test code = 2219) 10 U/L HEMOGLOBIN [id number] 00:00:00 Test Item Value Reference Range Interpretation Comments HEMOGLOBIN A1c (test code = 05440) 4.8 % HEMOGLOBIN [id number] 00:00:00 Test Item Value Reference Range Interpretation Comments HEMOGLOBIN A1c (test code = 73495) 4.8 % HEMOGLOBIN [id number] 00:00:00 Test Item Value Reference Range Interpretation Comments HEMOGLOBIN A1c (test code = 56098) 4.8 % [id number] 00:00:00 Test Item Value Reference Range Interpretation Comments TSH, THIRD GENERATION (test code 0.740 UIU/ML = 2821) COMPREHENSIVE METABOLIC [id number] 00:00:00 Test Item Value Reference Range Interpretation Comments GLUCOSE (test code = 2217) 81 MG/DL BUN (test code = 2208) 5 MG/DL CREATININE (test code = 2214) 0.73 MG/DL eGFR AMER. (test code 134 ML/MIN/1.73 = 79978) eGFR NON- AMER. (test 115 ML/MIN/1.73 code = 58594) CALC BUN/CREAT (test code = 7 RATIO [...] code = 2219) 10 U/L CBC W/AUTO [id number] 00:00:00 Test Item Value Reference Range Interpretation [...] (test code = 1015) 331 K/UL HEMOGLOBIN [id number] 00:00:00 Test Item Value Reference Range Interpretation Comments HEMOGLOBIN A1c (test code = 22734) 4.8 % CBC W/AUTO [id number] 00:00:00 Test Item Value Reference Range Interpretation [...] code = 1015) 331 K/UL CBC W/AUTO [id number] 00:00:00 Test Item Value Reference Range Interpretation [...] COUNT (test code = 1015) 331 K/UL [id number] 00:00:00 Test Item Value Reference Range Interpretation Comments TSH, THIRD GENERATION (test code 0.740 UIU/ML = 2821) [id number] 00:00:00 Test Item Value Reference Range Interpretation Comments TSH, THIRD GENERATION (test code 0.740 UIU/ML = 2821) [id number] 00:00:00 Test Item Value Reference Range Interpretation Comments TSH, THIRD GENERATION (test code 0.740 UIU/ML = 2821) COMPREHENSIVE METABOLIC [id number] 00:00:00 Test Item Value Reference Range Interpretation Comments GLUCOSE (test code = 2217) 81 MG/DL BUN (test code = 2208) 5 MG/DL CREATININE (test code = 2214) 0.73 MG/DL eGFR AMER. (test code 134 ML/MIN/1.73 = 00076) eGFR NON- AMER. (test 115 ML/MIN/1.73 code = 56911) CALC BUN/CREAT (test code = 7 RATIO [...] ALKALINE PHOSPHATASE (test 58 U/L code = 220) AST (test code = 2218) 15 U/L ALT (test code = 221) 10 U/L HEMOGLOBIN [id number] 00:00:00 Test Item Value Reference Range Interpretation Comments HEMOGLOBIN A1c (test code = 00211) 4.8 % COMPREHENSIVE METABOLIC [id number] 00:00:00 Test Item Value Reference Range Interpretation Comments GLUCOSE (test code = 2217) 81 MG/DL BUN (test code = 2208) 5 MG/DL CREATININE (test code = 2214) 0.73 MG/DL eGFR AMER. (test code 134 ML/MIN/1.73 = 13049) eGFR NON- AMER. (test 115 ML/MIN/1.73 code = 95064) CALC BUN/CREAT (test code = 7 RATIO [...] (test code = 2219) 10 U/L HEMOGLOBIN [id number] 00:00:00 Test Item Value Reference Range Interpretation Comments HEMOGLOBIN A1c (test code = 25268) 4.8 % HEMOGLOBIN [id number] 00:00:00 Test Item Value Reference Range Interpretation Comments HEMOGLOBIN A1c (test code = 73631) 4.8 % HEMOGLOBIN [id number] 00:00:00 Test Item Value Reference Range Interpretation Comments HEMOGLOBIN A1c (test code = 99347) 4.8 % CBC W/AUTO [id number] 00:00:00 Test Item Value Reference Range Interpretation [...]
[2023-01-04 12:50] LABS: Absolute Lymphocytes (CBC) 2.1 K/uL (0.7-4.9); Hematocrit 30.2 % (36.0-45.0); MCV 74.3 fL (80-100); MPV 8.3 fL (7.6-11.3); RBC Red Blood Cell Count 4.07 M/uL (3.86-4.86)
[2023-01-04 12:55] LABS: Specific Gravity 1.028 (1.005-1.030); Urine Bacteria None Seen /HPF (<20); Urine Bilirubin NEGATIVE (Negative); Urine Blood Negative (Negative); Urine Clarity Extremely Turbid (Clear); Urine Color Yellow (Yellow); Urine Glucose NEGATIVE (Negative); Urine Mucus 1+ /HPF (None Seen); Urine Protein TRACE (Negative); Urine RBC <5 /HPF (None Seen); Urine Urobilinogen Normal (Normal); Urine pH 6.5 (5.0-7.0)
[2023-01-04 13:04] LABS: Specific Gravity 1.028 (1.005-1.030)
[2023-01-04 13:11] LABS: ALT/SGPT 15 U/L (13-56); AST/SGOT 15 U/L (15-37); Albumin 3.2 g/dL (3.4-5.0); Alkaline Phosphatase 56 U/L (45-117); BUN Blood Urea Nitrogen 11 mg/dL (7-18); Bicarbonate 25 mEq/L (21-32); Bilirubin Direct 0.1 mg/dL (0-0.2); Bilirubin Indirect, Calculated 0.3 mg/dL (0.2-0.8); Bilirubin Total 0.4 mg/dL (0.2-1.0); Glomerular Filtration Rate 92 ml/min (=/>90); Glucose Level 88 mg/dL (74-106); Magnesium 2.1 mg/dL (1.6-2.4); Potassium 3.4 mEq/L (3.5-5.1); Protein, Total 6.9 g/dL (6.4-8.2); Sodium Level 139 mEq/L (136-145)
--- NOTE | 2023-01-04 13:11 | RAD REPORT ---
EXAM DESCRIPTION: CT - Head Brain Wo Cont - 01/04/2023 1:05 pm CLINICAL HISTORY: SYNCOPE Headache, drowsiness COMPARISON: No comparisons TECHNIQUE: All CT scans are performed using dose optimization technique as appropriate and may inclu de automated exposure control or mA/KV adjustment according to patient size. FINDINGS: No intracranial hemorrhage, hydrocephalus or extra-axial fluid collection.No areas of brai n edema or evidence of midline shift. The paranasal sinuses and mastoids are clear. The calvarium is intact. IMPRESSION: No acute intracranial abnormality.
[2023-01-04] MEDS ORDERED: NA CHLORIDE 0.9% 1,000 ML ONE (13:12)
[2023-01-04 13:14] LABS: Troponin High Sensitivity < 3.0 pg/mL (<58.9)
--- NOTE | 2023-01-04 14:35 | ER ---
Nurse's Notes [facility] Name: Anisa Fernandes Age: 27 yrs Sex: Female : 1995 Arrival Date: 01/04/2023 Time: 11:55 Bed 18 Private MD: Diagnosis: Syncope Near-syncope;UTI/ Urinary tract infection, site not specified Presentation: 01/04 12:02 Chief complaint: Patient states: I was at work - headache and stomach ache. Woke up and ld1 I had passed out. Did not fall, did not hit head. Coronavirus screen: At this time, the client does not indicate any symptoms associated with coronavirus-19. Ebola Screen: No symptoms or risks identified at this time. Initial Sepsis Screen: Does the patient meet any 2 criteria? No. Patient's initial sepsis screen is negative. Does the patient have a suspected source of infection? No. Patient's initial sepsis screen is negative. Risk Assessment: Do you want to hurt yourself or someone else? Patient reports no desire to harm self or others. Onset of symptoms was January 04, 2023. 12:02 Method Of Arrival: Ambulatory ld1 12:02 Acuity: EDWIN 3 ld1 Triage Assessment: 12:03 Headache History: Denies prior headaches. General: Appears in no apparent distress. ld1 comfortable, Behavior is calm, cooperative, appropriate for age. Pain: Complains of pain in face and abdomen Pain does not radiate. Pain currently is 3 out of 10 on a pain scale. Quality of pain is described as throbbing, Pain began suddenly. Pain: Also complains of no other associated symptoms. EENT: No signs and/or symptoms were reported regarding the EENT system. Neuro: Level of Consciousness is awake, alert, obeys commands, Oriented to person, place, time, situation. Cardiovascular: Capillary refill < 3 seconds Patient's skin is warm and dry. Respiratory: Airway is patent Respiratory effort is even, unlabored. GI: Abdomen is flat, non-distended, Reports upper abdominal pain, epigastric pain. : No signs and/or symptoms were reported regarding the genitourinary system. Derm: No signs and/or symptoms reported regarding the dermatologic system. Musculoskeletal: No signs and/or symptoms reported regarding the musculoskeletal system. Historical: - Allergies: 12:03 No Known Allergies; ld1 - Home Meds: 12:03 None [Active]; ld1 - PMHx: 12:03 None; ld1 - PSHx: 12:03 tubal ligation; ld1 - Immunization history:: Adult Immunizations up to date, Client reports receiving the 2nd dose of the Covid vaccine. - Social history:: Smoking status: Reported history of juuling and/or vaping. Patient uses alcohol, occasionally. Screenin:29 [facility] ED Fall Risk Assessment (Adult) History of falling in the last 3 months, eh3 including since admission. Abuse screen: Denies threats or abuse. Denies injuries from another. Nutritional screening: No deficits noted. Tuberculosis screening: No symptoms or risk factors identified. Assessment: 12:29 Reassessment: See triage assessmnet. eh3 Vital Signs: 12:02 BP 122 / 79; Pulse 72; Resp 18; Temp 97.9(TE); Pulse Ox 100% on R/A; Weight 83.91 kg; ld1 Height 5 ft. 4 in. ; Pain 3/10; 12:29 BP 95 / 67; Pulse 71; Resp 18; Pulse Ox 100% on R/A; eh3 13:16 BP 117 / 64 Supine; Pulse 78; Resp 12; Pulse Ox 100% on R/A; eh3 13:18 BP 120 / 74 Sitting; Pulse 74; Resp 14; Pulse Ox 100% on R/A; eh3 13:20 BP 119 / 72 Standing; Pulse 68; Resp 16; Pulse Ox 100% on R/A; eh3 12:02 Body Mass Index 31.75 (83.91 kg, 162.56 cm) ld1 12:02 Pain Scale: Adult ld1 ED Course: 11:56 Patient arrived in ED. am2 12:01 Héctor Plummer MD is Attending Physician. kdr 12:03 Triage completed. ld1 12:03 Arm band placed on right wrist. ld1 12:17 Susan Keller RN is Primary Nurse. eh3 12:29 Patient has correct armband on for positive identification. Placed in gown. Bed in low eh3 position. Call light in reach. Side rails up X2. threat monitoring analyst on. Pulse ox on. NIBP on. Door closed. Noise minimized. Warm blanket given. 12:29 Urinalysis w/ reflexes Sent. eh3 12:29 Inserted saline lock: 20 gauge in right antecubital area, using aseptic technique. eh3 Blood collected. 12:29 No provider procedures requiring assistance completed. eh3 13:06 CT Head Brain wo Cont In Process Unspecified. EDMS 14:48 IV discontinued, intact, bleeding controlled, No redness/swelling at site. Pressure mb9 dressing applied. Administered Medications: 13:20 Drug: NS 0.9% IV 1000 ml Route: IV; Rate: 1 bolus; Site: right antecubital; eh3 14:30 Follow up: IV Status: Completed infusion; IV Intake: 1000ml eh3 Medication: 12:29 VIS not applicable for this client. eh3 Intake: 14:30 IV: 1000ml; Total: 1000ml. eh3 Outcome: 14:34 Discharge ordered by . kdr 14:48 Discharged to home ambulatory. mb9 14:48 Condition: stable 14:48 Discharge instructions given to patient, Instructed on discharge instructions, follow up and referral plans. Demonstrated understanding of instructions, follow-up care, medications, Prescriptions given X 1. 14:48 Patient left the ED. mb9 Signatures: Dispatcher [employer] EDMS Héctor Plummer MD MD kdr Eliz Lockwood am2 Brook Guillen RN RN ld1 Susan Keller RN RN 3 Yuly Manrique, RN RN mb9
--- NOTE | 2023-01-04 14:35 | EDPHYS ---
Physician Documentation [facility] Name: Anisa Fernandes Age: 27 yrs Sex: Female : 1995 Arrival Date: 01/04/2023 Time: 11:55 Bed 18 Private MD: ED Physician Héctor Plummer Historical: - Allergies: 01/04 12:03 No Known Allergies; ld1 - Home Meds: 12:03 None [Active]; ld1 - PMHx: 12:03 None; ld1 - PSHx: 12:03 tubal ligation; ld1 - Immunization history:: Adult Immunizations up to date, Client reports receiving the 2nd dose of the Covid vaccine. - Social history:: Smoking status: Reported history of juuling and/or vaping. Patient uses alcohol, occasionally. Vital Signs: 12:02 BP 122 / 79; Pulse 72; Resp 18; Temp 97.9(TE); Pulse Ox 100% on R/A; Weight 83.91 kg; ld1 Height 5 ft. 4 in. ; Pain 3/10; 12:29 BP 95 / 67; Pulse 71; Resp 18; Pulse Ox 100% on R/A; eh3 13:16 BP 117 / 64 Supine; Pulse 78; Resp 12; Pulse Ox 100% on R/A; eh3 13:18 BP 120 / 74 Sitting; Pulse 74; Resp 14; Pulse Ox 100% on R/A; eh3 13:20 BP 119 / 72 Standing; Pulse 68; Resp 16; Pulse Ox 100% on R/A; eh3 12:02 Body Mass Index 31.75 (83.91 kg, 162.56 cm) ld1 12:02 Pain Scale: Adult ld1 MDM: 14:34 Patient medically screened. kdr 01/04 12:11 Order name: Basic Metabolic Panel; Complete Time: 13:34 iw 01/04 12:11 Order name: CBC with Diff; Complete Time: 13:34 iw 01/04 12:11 Order name: Hepatic Function; Complete Time: 13:34 iw 01/04 12:11 Order name: Magnesium; Complete Time: 13:34 iw 01/04 12:11 Order name: Protime (+inr); Complete Time: 13:34 iw 01/04 12:11 Order name: Ptt, Activated; Complete Time: 13:34 iw 01/04 12:11 Order name: Troponin High Sensitivity; Complete Time: 13:34 iw 01/04 12:11 Order name: Urinalysis w/ reflexes; Complete Time: 13:34 01/04 12:49 Order name: Test, Urine; Complete [facility]: 13:34 [facility] 01/04 12:[facility] Order name: CT Head Brain wo Cont; Complete Time: 13:34 [facility] 01/04 12:11 Order name: EKG; Complete Time: 12:11 01/04 12:11 Order name: Cardiac monitoring; Complete Time: 12:29 01/04 12:11 Order name: EKG - Nurse/Tech; Complete Time: 12:29 01/04 12:11 Order name: IV Saline Lock; Complete Time: 12: 01/04 12:11 Order name: Labs collected and sent; Complete Time: 12: 01/04 12:11 Order name: NPO; Complete Time: 12:17 01/04 12:11 Order name: O2 Per Protocol; Complete Time: 12: 01/04 12:11 Order name: O2 Sat Monitoring; Complete Time: 12: 01/04 12:46 Order name: Orthostatic Blood Pressure; Complete Time: 13:41 kdr Administered Medications: 13:20 Drug: NS 0.9% IV 1000 ml Route: IV; Rate: 1 bolus; Site: right antecubital; eh3 14:30 Follow up: IV Status: Completed infusion; IV Intake: 1000ml eh3 Disposition Summary: 01/04/23 14:34 Discharge Ordered Location: Home kdr Problem: new kdr Symptoms: are resolved kdr Condition: Stable kdr Diagnosis - Syncope Near - syncope kdr - UTI/ Urinary tract infection, site not specified kdr Followup: kdr - With: Private Physician - When: 2 - 3 days - Reason: If symptoms return, Further diagnostic work-up, Recheck today's complaints, Continuance of care, Re-evaluation by your physician Discharge Instructions: - Discharge Summary Sheet kdr - Near-Syncope kdr - Urinary Tract Infection, Adult, [id number] kdr - Syncope, [id number] kdr Forms: - Medication Reconciliation Form kdr - Thank You Letter kdr - Antibiotic Education kdr - [email or web address] kdr Prescriptions: - Bactrim DS 800-160 mg Oral Tablet - take 1 tablet by ORAL route every 12 hours for 3 days; 6 tablet; Refills: 0, kdr Product Selection Permitted Signatures: Dispatcher [employer] EDMS Héctor Plummer MD MD kdr Arin Smith RN RN iw Brook Guillen RN RN ld1 Susan Keller RN RN eh3 Corrections: (The following items were deleted from the chart) 13:03 12:49 Urinalysis+U.LAB.BRZ ordered. EDMS EDMS
[2023-01-04 15:07] VITALS: TEMP 97.9; O2SAT 100
[2023-01-04 15:17] VITALS: BP 119/72
--- NOTE | 2023-01-05 12:37 | EKG ---
Test Date: 2023-01-04 Test Time: 12:22:11 Lottery Clerk: MARCOS MEASUREMENT RESULTS: Intervals: Rate: 75 NM: 172 QRSD: 86 QT: 376 QTc: 419 [place]: P: 46 NM: 172 QRS: 59 T: 28 INTERPRETIVE STATEMENTS: Normal sinus rhythm Normal ECG No previous ECG available for comparison Electronically Signed On 01-05-23 12:35:00 CDT by Evgeny Julien
== END 2023-01-04 14:48 | disposition home or self-care (01) ==
LOC: ER 11:55
DX: N39.0 Urinary tract infection, site not specified (principal)
CPT/HCPCS: 36415; 70450; 80048; 80076; 81001; 81025; 83735; 84484; 85025; 85610; 85730; 93005; 96360; 99285; J7030

== ENCOUNTER → 2023-08-06 | Emergency (ER) | payer SELFPAY ==
[~2023-08-06] MED LIST: AMOX/K CLAV 875 MG TAB ONE; BENZONATATE 100 MG CAP PO ONE
--- OUTSIDE RECORDS SUMMARY | 2023-08-06 22:26 | XMS REPORT | Continuity of Care Document ---
Author Name Unknown Address [address] [facility] [address] [place] [address] [facility] thconnect Address [address] [facility] 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 Phone Pcp, Patient Does Not Have A Primary Care Physic asher Eda Fischer Attending Clinician Doctor Unassigned, [place] Attending Clinician [facility] Scott Attending Clinician Unavailable , [facility] Attending Clinician Unavail Josh Reyes Attending Clinician [phone] Payers Payer Name Policy Type Policy Number Effective Date Expirati on Date Source [facility] MEDICAID [id number] 2019 00:00:00 Problems Condition Name Condition Details Condition Category Status Onset Date Resolution Date Last Treatment Date Treating Clinician Comments Source Obesity (BMI 30-39.9) Obesity (BMI 30-39.9) Disease Active 2018-07 00:00: 00 [facility] Multiparou s Multiparou s Disease Active 2018-07 00:00: 00 [facility] Encounter for sterilizat ion Encounter for sterilizat ion Disease Active 2018-07 00:00: 00 Overview: Formattin g of this note might be different from the original. Added automatic ally from request for surgery [id number] [facility] Allergies, Adverse Reactions, Alerts Allergy Name Allergy Type Status Severity Reaction(s) Onset Date Inactive Date Treating Clinician Comments Source NO KNOWN ALLERGIE S Drug Class Active [facility] Social History Social Habit Start Date Stop Date Quantity Comments Source History of tobacco use Cigarette Smoker [facility] History SDOH Alcohol Frequency [facility] History SDOH Alcohol Std Drinks [facility] History SDOH Alcohol Binge [facility] Exposure to SARS-CoV-2 (event) Not sure [facility] Alcohol intake 2021-04-10 00:00:00 2021-04-10 00:00:00 Current drinker of alcohol (finding) [facility] Alcohol Comment 2019-05-29 00:00:00 2019-05-29 00:00:00 Occasional Drinker [facility] Cigarettes smoked current (pack per day) - Reported 2019-05-03 00:00:00 2019-05-03 00:00:00 [facility] Tobacco use and exposure 2019-05-03 00:00:00 2019-05-03 00:00:00 Smokeless tobacco non-user [facility] Sex Assigned At 1995 00:00:00 1995 00:00:00 [facility] Smoking Status Start Date Stop Date Source Unknown if ever smoked [facility] Heavy tobacco smoker 2019-05-03 00:00:00 [facility] Medications Ordered Medication Name Filled Medication Name Start Date Stop Date Current Medication? Ordering Clinician Indication Dosage Frequency Signature (SIG) Comments Components Source TAKE 1 TABLET BY MOUTH EVERY 6 HOURS NEEDED FOR PAIN TAKE WITH FOOD 03-17 00:00: 00 No TAKE 1 TABLET BY MOUTH EVERY 6 HOURS NEEDED FOR PAIN TAKE WITH FOOD 03-17 00:00: 00 No dexamethaso ne (DECADRON PHOSPHATE) injection 10 mg 2020-07 0-03 00:00: 00 04-10 23:18 :00 No 10mg 10 mg, Intramuscu lar, ONCE, 1 dose, On 04/10/21 at 1900, STAT [facility] ketorolac (TORADOL) injection 60 mg 2020-07 00:00: 00 04-10 23:18 :00 No 60mg 60 mg, Intramuscu lar, ONCE, 1 dose, On 04/10/21 at 1900, REGGIE
[facility] member approving Restricted medication : EMERGENCY ROOM, [facility] ibuprofen 800 mg tablet 2020-07 00:00: 00 Yes [id number] 800mg Take 1 tablet by mouth every 8 (eight) hours as needed for Pain (scale 4-6). [facility] methocarbam oL 750 mg tablet 2020-07 00:00: 00 Yes [id number] 750mg Take 1 tablet by mouth 4 (four) times daily as needed for Pain (scale 7-10). [facility] ibuprofen 800 mg tablet 2020-07 00:00: 00 Yes [id number] 800mg Take 1 tablet by mouth every 8 (eight) hours as needed for Pain (scale 4-6). [facility] methocarbam oL 750 mg tablet 2020-07 00:00: 00 Yes [id number] 750mg Take 1 tablet by mouth 4 (four) times daily as needed for Pain (scale 7-10). [facility] predniSONE 20 mg tablet 2020-07 00:00: 00 04-16 04:59 :00 No [id number] 40mg Take 2 tablets by mouth daily for 5 days. [facility] ibuprofen 800 mg tablet 2018-07 00:00: 00 Yes [id number] 800mg Take 1 tablet by mouth every 6 (six) hours as needed for Pain (scale 4-6). [facility] HYDROcodone -acetaminop hen 5-325 mg tablet 2018-07 00:00: 00 Yes [id number] 1{tbl} Take 1 tablet by mouth every 6 (six) hours as needed for Pain (scale 7-10). [facility] ibuprofen 800 mg tablet 2018-07 00:00: 00 Yes [id number] 800mg Take 1 tablet by mouth every 6 (six) hours as needed for Pain (scale 4-6). [facility] HYDROcodone -acetaminop hen 5-325 mg tablet 2018-07 00:00: 00 Yes [id number] 1{tbl} Take 1 tablet by mouth every 6 (six) hours as needed for Pain (scale 7-10). [facility] ibuprofen 800 mg tablet 2018-07 00:00: 00 Yes [id number] 800mg Take 1 tablet by mouth every 6 (six) hours as needed for Pain (scale 4-6). [facility] HYDROcodone -acetaminop hen 5-325 mg tablet 2018-07 00:00: 00 Yes [id number] 1{tbl} Take 1 tablet by mouth every 6 (six) hours as needed for Pain (scale 7-10). [facility] multivitami n ( VITAMIN) tablet 2014-07 00:00: 00 Yes 1{tbl} Take 1 Tab by mouth daily. [facility] multivitami n ( VITAMIN) tablet 2014-07 00:00: 00 Yes 1{tbl} Take 1 Tab by mouth daily. [facility] Vital Signs Vital Name Observation Time Observation Value Comments S meri Systolic blood pressure 2021-04-10 23:26:49 138 mm[Hg] [facility] Diastolic blood pressure 2021-04-10 23:26:49 98 mm[Hg] [facility] Heart rate 2021-04-10 23:26:49 86 /min [facility] Body temperature 2021-04-10 23:26:49 36.28 [facility] Respiratory rate 2021-04-10 23:26:49 16 /min [facility] Body weight 2021-04-10 22:39:00 81.647 kg [facility] BMI 2021-04-10 22:39:00 30.42 kg/m2 [facility] Oxygen saturation in Arterial blood by Pulse oximetry 2021-04-10 22:39:00 100 /min [facility] Heart Rate 2022-03-26 12:21:00 86.00 /min Respiratory [...] Procedures Procedure Date / Time Performed Performing Clinicia n Source CONSENT/REFUSAL FOR DIAGNOSIS AND TREATMENT 2022-03-28 17:31:56 Doctor Unassigned, [place] [facility] NOTICE OF PRIVACY PRACTICES 2021-04-10 22:30:00 Doctor Unassigned, [place] [facility] CONSENT/REFUSAL FOR DIAGNOSIS AND TREATMENT 2021-04-10 22:29:42 Doctor Unassigned, [place] [facility] SLEEP STUDY DATA REPORT 2019-02-06 05:01:00 Doctor Unassigned, [place] [facility] Plan of Care Planned Activity Planned Date Details Comments Source Goal Plan of Care Note [code = 24751-1] Goal Plan of Care Note [code = 16074-1] Goal Plan of Care Note [code = 59349-1] Goal Plan of Care Note [code = 54867-6] Goal Plan of Care Note [code = 70153-6] Goal Plan of Care Note [code = 70994-7] Goal Plan of Care Note [code = 41457-4] Goal Plan of Care Note [code = 31561-8] Goal Plan of Care Note [code = 13336-7] Goal Plan of Care Note [code = 83095-0] Goal Plan of Care Note [code = 47193-7] Goal Plan of Care Note [code = 32108-6] Goal Plan of Care Note [code = 59295-8] Goal Plan of Care Note [code = 28758-8] Goal Plan of Care Note [code = 71166-0] Goal Plan of Care Note [code = 71010-1] Goal Plan of Care Note [code = 93298-2] Goal Plan of Care Note [code = 95927-1] Goal Plan of Care Note [code = 40454-3] Goal Plan of Care Note [code = 97206-7] Goal Plan of Care Note [code = 66221-7] Goal Plan of Care Note [code = 09651-4] Goal Plan of Care Note [code = 21169-8] Goal Plan of Care Note [code = 74321-9] Goal Plan of Care Note [code = 07167-7] Goal Plan of Care Note [code = 56860-1] Goal Plan of Care Note [code = 33473-8] Goal Plan of Care Note [code = 76295-4] Goal Plan of Care Note [code = 00821-0] Goal Plan of Care Note [code = 55092-0] Goal Plan of Care Note [code = 43040-7] Goal Plan of Care Note [code = 36824-9] Goal Plan of Care Note [code = 54571-2] Goal Plan of Care Note [code = 82971-3] Goal Plan of Care Note [code = 29353-1] Encounters Start Date/Time End Date/Time Encounter Type Admission Type Attending [facility] Care Department Encounter ID Source 2021-05-11 03:20:38 Emergency [facility] [id number] [facility] 2022-04-20 08:09:20 2022-04-20 08:09:20 Outpatient [facility] [id number] Xavi Cartagena 2022-03-28 12:48:00 2022-03-28 13:01:00 Emergency X [facility] ERT [id number] [facility] 2022-03-28 12:48:00 2022-03-28 13:01:00 Emergency [facility] [id number] 350.1.13.10 4.2.7.2.686 [id number] [facility] 2022-03-26 00:00:00 2022-03-26 00:00:00 Outpatient Visit [id number] 2022-03-17 00:00:00 2022-03-17 00:00:00 Outpatient Visit [id number] 2022-01-18 00:00:00 2022-01-18 00:00:00 Outpatient Visit [id number] 2021-04-10 17:40:00 2021-04-10 20:56:00 Emergency Eda Varg[facility] 1.2.840.114 350.1.13.10 4.2.7.2.686 [id number] [facility] 2021-04-10 00:00:00 2021-04-10 00:00:00 Orders Only Doctor Unassigned, [place] [facility] 1.2.840.114 350.1.13.10 4.2.7.2.686 [id number] [facility] 2020-10-13 14:00:00 2020-10-13 14:00:00 Outpatient ROSS MALDONADO [facility] [id number] [facility] 2019-02-06 14:31:28 2019-02-06 17:01:28 Lvn Visit 1, [facility] Andicarlos [facility] 1.2.840.114 350.1.13.10 4.2.7.2.686 [id number] [facility] 2019-02-06 14:31:28 2019-02-06 17:01:28 Lvn Visit 1, [facility] 1.2.840.114 350.1.13.10 4.2.7.2.686 [id number] 2019-02-06 00:00:00 2019-02-06 00:00:00 Orders Only Doctor Unassigned, [place] [facility] 1.2.840.114 350.1.13.10 4.2.7.2.686 [id number] [facility] 2019-02-06 00:00:00 2019-02-06 00:00:00 Orders Only Doctor Unassigned, [place] [facility] 1.2.840.114 350.1.13.10 4.2.7.2.686 [id number] Results Test Description Test Time Test Comments Results Result Co mments Source NOTE:2022-04-07 06:05:09* Test Item Value Reference Range Interpretation Comme nts NOTE: (test code = 998) (NOTE) IN ACCORDANCE [facility] FEDERAL GUIDELINES REQUIRING ALL VERBAL REQUESTS FOR LABORATORY TESTS TO BE ACCOMPANIED BY WRITTEN AUTHORIZATION WITHIN 30 DAYS OF THIS REQUEST, PLEASE SIGN BELOW AND RETURN A COPY OF THIS REPORT BY FAX TO THE LABORATORY SCANNING DEPARTMENT AT [phone]. PHYSICIAN'S SIGNATURE DATE UNLESS OTHERWISE INDICATED, ALL TESTING PERFORMED [facility] [employer] [address] [place] [address] SCRAP SAWYER: VAISHALI WILL M.D. [place] NUMBER [id number] [place]. [id number] HPV HIGH RISK WITH GENOTYPE, [id number] 14:14:38* Test Item Value Reference Range Interpretation Comme nts HPV HIGH RISK INTERP (test code = 25614) POSITIVE NEGATIVE A HPV 16 (test code = 62127) NEGATIVE HPV 18 (test code = 43376) NEGATIVE HPV, HR, OTHER GENOTYPES (test code = 50451) POSITIVE A Testing methodol ogy is real-time PCR utilizing hydrolysis probes with the Saúl Natalia 4800 system. The test individually detects genotypes 16 and 18, as well as the other 12 high risk types (31,33,35,39,45,51,52,56 ,58,59,66,68). The expected result is negative. A negative result does not rule out the presence of HPV not included in the genotype set, a low level of infection or specimen sampling error. PAP TEST, THINPREP, [id number] 11:12:56* Test Item Value Reference Range Interpretation Comments SOURCE: (test code = 8001) Endocervical SLIDES: (test code = 8011) 1 LMP: (test code = 8021) 02/26/2022 SPECIMEN ADEQUACY: (test code = 56293) (NOTE) Satisfactory for evaluation. Endocervical cells/transformation zone component present. INTERPRETATION: (test code = 02781) ASCUS/EPITH. ABNORMALITY; SEE BELOW A EPITHELIAL CELL ABNORMALITY Atypical squamous cells of undetermined significance (ASC-US) CONTRACT PROCESSOR: (test code = 8101) TAVON Vicente (ASC) PATHOLOGIST INTERPRETATION BY: (test code = 8122) Nancy Kirkland M.D. LOCATION: (test code = 00247) (NOTE) Specimens proces sed at [facility] Pathology [facility], [address] [place] [address], , CLIA: [id number] interpreted at [facility] Pathology [facility] Pathology Dept, [address] [place] [address] [place] [address], , CLIA: [id number] CPT: (test code = 8140) (NOTE) [address], [address] UNL ESS OTHERWISE INDICATED, COMPUTER AIDED AND CONTRACT PROCESSOR SCREENING PERFORMED. The Pap test is a screening test with an inherent, but low probability of error. Your patient should be reminded to consult you immediately if she experiences any suspicious signs or symptoms, regardless of her Pap test result. An alternate report format containing images or consolidated prior Pap history is available as applicable. UNLESS OTHERWISE INDICATED, ALL TESTING PERFORMED [employer] [address] [place] [address] SCRAP SAWYER: VAISHALI WILL M.D. CLIA NUMBER [id number] [place] [place]. [id number] VAGINAL PATHOGENS DNA [id number] 17:32:34* Test Item Value Reference Range Interpretation Comme nts HAY SPECIES (test code = 85838) NEGATIVE NEGATIVE G. VAGINALIS (test code = 47332) POSITIVE NEGATIVE A T. VAGINALIS (test code = 62710) NEGATIVE NEGATIVE UNLESS OTHERWISE INDICATED, ALL TESTING PERFORMED [employer] [address] [place] [address] SCRAP SAWYER: VAISHALI WILL M.D. [place] NUMBER [id number] [place] [place]. [id number] HIV 1/2 4TH GEN, RFLX [id number] 03:12:57* Test Item Value Reference Range Interpretation Comme nts HIV 1/2 4TH GEN, RFLX CONF ( test code = 3514) NON-REACTIVE NON-REACTIVE HEPATITIS PANEL, [id number] 03:12:57* Test Item Value Reference Range Interpretation Comme nts HEPATITIS A IgM (test code = 17285) NON-REACTIVE NON-REACTIVE HEPATITIS B CORE IgM (test code = 4644) NON-REACTIVE NON-REACTIVE HEPATITIS B SURF AG (test code = 2739) NON-REACTIVE NON-REACTIVE HEPATITIS C ANTIBODY (test code = 4675) NON-REACTIVE NON-REACTIVE INTERPRETATION HEPATITIS A: (test code = 2552) (NOTE) Hepatitis A serology shows no evidence of acute hepatitis A. INTERPRETATION HEPATITIS B: (test code = 03633) (NOTE) Hepatitis B serology shows no evidence of acute hepatitis B andno indication of exposure to hepatitis B virus in the previous yuliet eight months. INTERPRETATION HEPATITIS C: (test code = 41655) (NOTE) Hepatitis C serology shows no evidence of exposure to hepatitisC virus at this time. It can take up to 12 months after exposure tothe hepatitis C virus for antibodies to become detectable in the blood in certain patients. [id number] 23:09:13* Test Item Value Reference Range Interpretation Comme nts RPR RESULT (test code = 3501) NON-REACTIVE NON-REACTIVE RPR TITER (test code = 3500) NOT INDIC. TITER NOT INDIC. CT/NG, NAAT, [id number] 17:03:08* Test Item Value Reference Range Interpretation Comme nts GONORRHEA, NAAT (test code = 22279) NEGATIVE NEGATIVE IMPORTANT NO KEVIN: SEE ANNOUNCEMENT AT [email or web address] Note: Assay methodology is nucleic acid amplification by supervisor asphalt paving mediated amplification (TMA) utilizing the Aptima Combo 2 Assay. CHLAMYDIA, NAAT (test code = 65510) NEGATIVE NEGATIVE IMPORTANT NO KEIVN: SEE ANNOUNCEMENT AT [email or web address] Note: Assay methodology is nucleic acid amplification by supervisor asphalt paving mediated amplification (TMA) utilizing the Aptima Combo 2 Assay. HEMOGLOBIN [id number] 08:46:17* Test Item Value Reference Range Interpretation Comme nts HEMOGLOBIN A1c (test code = 58276) 5.0 % 4.2-5.6 UNLESS OTHERWISE INDICATED, ALL TESTING PERFORMED [facility] [employer] [address] [place] [address] SCRAP SAWYER: VAIHSALI WILL M.D. [place] NUMBER [id number] [place]. [id number] CBC W/AUTO DIFF WITH [id number] 08:31:29* Test Item Value Reference Range Interpretation Comme nts WBC (test code = 1001) 7.0 K/UL 3.5-11.0 RBC (test code = 1002) 4.27 M/UL 3.80-5.40 HEMOGLOBIN (test code = 1003) 11.8 G/DL 11.5-15.5 HEMATOCRIT (test code = 1004) 36.5 % 34.0-45.0 MCV (test code = 1005) 85.5 fL 80.0-99.0 MCH (test code = 1006) 27.6 PG 25.0-33.0 MCHC (test code = 1007) 32.3 G/DL 31.0-36.0 RDW (test code = 1038) 13.0 % 11.5-15.0 NEUTROPHILS (test code = 1008) 66.1 % LYMPHOCYTES (test code = 1010) 27.0 % MONOCYTES (test code = 1011) 4.4 % EOSINOPHILS (test code = 1012) 1.9 % BASOPHILS (test code = 1013) 0.3 % IMMATURE GRANULOCYTES (test code = 1036) 0.3 % NUCLEATED RBCS (test code = 1065) 0.0 /100 WBC'S See_Comment [Automated Niko Nikoa ge] The system which generated this result transmitted reference range: 0.0. The reference range was not used to interpret this result as normal/abnormal. PLATELET COUNT (test code = 1015) 285 K/UL 130-400 ABSOLUTE NEUTROPHILS (test code = 1066) 4.64 K/UL 1.50-7.50 ABSOLUTE LYMPHOCYTES (test code = 1067) 1.89 K/UL 1.00-4.00 ABSOLUTE MONOCYTES (test code = 1068) 0.31 K/UL 0.20-1.00 ABSOLUTE EOSINOPHILS (test code = 1040) 0.13 K/UL 0.00-0.50 ABSOLUTE BASOPHILS (test code = 1069) 0.02 K/UL 0.00-0.20 ABS IMMATURE GRANULOCYTES (test code = 1020) 0.02 K/UL 0.00-0.10 ABS NUCLEATED RBCS (test code = 90827) 0.00 K/UL 0.00-0.11 COMPREHENSIVE METABOLIC [id number] 06:10:10* Test Item Value Reference Range Interpretation Comme nts GLUCOSE (test code = 2216) 76 MG/DL 70-99 BUN (test code = 2207) 7 MG/DL 6-20 CREATININE (test code = 2213) 0.80 MG/DL 0.60-1.30 eGFR (2020 CKD-EPI) (test code = 04937) 104 ML/MIN/1.73 >60 CALC BUN/CREAT (test code = 5) 9 RATIO 6-28 SODIUM (test code = 223) 140 MEQ/L 133-146 POTASSIUM (test code = 2228) 3.8 MEQ/L 3.5-5.4 CHLORIDE (test code = 2215) 104 MEQ/L 95-107 CARBON DIOXIDE (test code = 6) 27 MEQ/L 19-31 CALCIUM (test code = 2209) 9.3 MG/DL 8.5-10.5 PROTEIN, TOTAL (test code = 2228) 6.9 G/DL 6.1-8.3 ALBUMIN (test code = 2200) 4.0 G/DL 3.5-5.2 CALC GLOBULIN (test code = 2240) 2.9 G/DL 1.9-3.7 CALC A/G RATIO (test code = 223) 1.4 RATIO 1.0-2.6 BILIRUBIN, TOTAL (test code = 2206) 0.7 MG/DL See_Comment [Automated me ssage] The system which generated this result transmitted reference range: <=1.2. The reference range was not used to interpret this result as normal/abnormal. ALKALINE PHOSPHATASE (test code = 4) 57 U/L 40-112 AST (test code = 8) 12 U/L 9-40 ALT (test code = 2219) 11 U/L 5-40 CBC W/AUTO [id number] 00:00:00* Test Item Value Reference Range Interpretation Comme nts WBC (test code = 1001) 7.0 K/UL [...] = 1013) 0.3 % IMMATURE GRANULOCYTES (test code = 1036) 0.3 % NUCLEATED RBCS (test code = 1065) 0.0 /100WBC'S PLATELET COUNT (test code = 1015) 285 K/UL ABSOLUTE NEUTROPHILS (test c ode = 1066) 4.64 K/UL ABSOLUTE LYMPHOCYTES (test c ode = 1067) 1.89 K/UL ABSOLUTE MONOCYTES (test cod e = 1068) 0.31 K/UL ABSOLUTE EOSINOPHILS (test c ode = 1040) 0.13 K/UL ABSOLUTE BASOPHILS (test cod e = 1069) 0.02 K/UL ABS IMMATURE GRANULOCYTES (t est code = 1020) 0.02 K/UL ABS NUCLEATED RBCS (test cod e = 11360) 0.00 K/UL CBC W/AUTO [id number] 00:00:00* Test Item Value Reference Range Interpretation Comme nts WBC (test code = 1001) 7.0 K/UL [...] = 1013) 0.3 % IMMATURE GRANULOCYTES (test code = 1036) 0.3 % NUCLEATED RBCS (test code = 1065) 0.0 /100WBC'S PLATELET COUNT (test code = 1015) 285 K/UL ABSOLUTE NEUTROPHILS (test c ode = 1066) 4.64 K/UL ABSOLUTE LYMPHOCYTES (test c ode = 1067) 1.89 K/UL ABSOLUTE MONOCYTES (test cod e = 1068) 0.31 K/UL ABSOLUTE EOSINOPHILS (test c ode = 1040) 0.13 K/UL ABSOLUTE BASOPHILS (test cod e = 1069) 0.02 K/UL ABS IMMATURE GRANULOCYTES (t est code = 1020) 0.02 K/UL ABS NUCLEATED RBCS (test cod e = 09591) 0.00 K/UL CBC W/AUTO [id number] 00:00:00* Test Item Value Reference Range Interpretation Comme nts WBC (test code = 1001) 7.0 K/UL [...] = 1013) 0.3 % IMMATURE GRANULOCYTES (test code = 1036) 0.3 % NUCLEATED RBCS (test code = 1065) 0.0 /100WBC'S PLATELET COUNT (test code = 1015) 285 K/UL ABSOLUTE NEUTROPHILS (test c ode = 1066) 4.64 K/UL ABSOLUTE LYMPHOCYTES (test c ode = 1067) 1.89 K/UL ABSOLUTE MONOCYTES (test cod e = 1068) 0.31 K/UL ABSOLUTE EOSINOPHILS (test c ode = 1040) 0.13 K/UL ABSOLUTE BASOPHILS (test cod e = 1069) 0.02 K/UL ABS IMMATURE GRANULOCYTES (t est code = 1020) 0.02 K/UL ABS NUCLEATED RBCS (test cod e = 13433) 0.00 K/UL COMPREHENSIVE METABOLIC [id number] 00:00:00* Test Item Value Reference Range Interpretation Comme nts GLUCOSE (test code = 2217) 76 MG/DL BUN (test code = 2208) 7 MG/DL CREATININE (test code = 2214) 0.80 MG/DL eGFR (2020 CKD-EPI) (test code = 66732) 104 ML/MIN/1.73 CALC BUN/CREAT (test code = 2235) 9 RATIO SODIUM (test code = 2231) 140 MEQ/L POTASSIUM (test code = 2228) 3.8 MEQ/L CHLORIDE (test code = 2215) 104 MEQ/L CARBON DIOXIDE (test code = 2206) 27 MEQ/L CALCIUM (test code = 2209) 9.3 MG/DL PROTEIN, TOTAL (test code = 2229) 6.9 G/DL ALBUMIN (test code = 2201) 4.0 G/DL CALC GLOBULIN (test code = 2240) 2.9 G/DL CALC A/G RATIO (test code = 2234) 1.4 RATIO BILIRUBIN, TOTAL (test code = 2207) 0.7 MG/DL ALKALINE PHOSPHATASE (test code = 2204) 57 U/L AST (test code = 2218) 12 U/L ALT (test code = 2219) 11 U/L COMPREHENSIVE METABOLIC [id number] 00:00:00* Test Item Value Reference Range Interpretation Comme nts GLUCOSE (test code = 2217) 76 MG/DL BUN (test code = 2208) 7 MG/DL CREATININE (test code = 2214) 0.80 MG/DL eGFR (2020 CKD-EPI) (test code = 49861) 104 ML/MIN/1.73 CALC BUN/CREAT (test code = 2235) 9 RATIO SODIUM (test code = 2231) 140 MEQ/L POTASSIUM (test code = 2228) 3.8 MEQ/L CHLORIDE (test code = 2215) 104 MEQ/L CARBON DIOXIDE (test code = 2206) 27 MEQ/L CALCIUM (test code = 2209) 9.3 MG/DL PROTEIN, TOTAL (test code = 2229) 6.9 G/DL ALBUMIN (test code = 2201) 4.0 G/DL CALC GLOBULIN (test code = 2240) 2.9 G/DL CALC A/G RATIO (test code = 2234) 1.4 RATIO BILIRUBIN, TOTAL (test code = 2207) 0.7 MG/DL ALKALINE PHOSPHATASE (test code = 2204) 57 U/L AST (test code = 2218) 12 U/L ALT (test code = 2219) 11 U/L HEMOGLOBIN [id number] 00:00:00* Test Item Value Reference Range Interpretation Comme nts HEMOGLOBIN A1c (test code = 14601) 5.0 % HEMOGLOBIN [id number] 00:00:00* Test Item Value Reference Range Interpretation Comme nts HEMOGLOBIN A1c (test code = 68716) 5.0 % HEMOGLOBIN [id number] 00:00:00* Test Item Value Reference Range Interpretation Comme nts HEMOGLOBIN A1c (test code = 10122) 5.0 % CBC W/AUTO [id number] 00:00:00* Test Item Value Reference Range Interpretation Comme nts WBC (test code = 1001) 7.0 K/UL [...] = 1013) 0.3 % IMMATURE GRANULOCYTES (test code = 1036) 0.3 % NUCLEATED RBCS (test code = 1065) 0.0 /100WBC'S PLATELET COUNT (test code = 1015) 285 K/UL ABSOLUTE NEUTROPHILS (test c ode = 1066) 4.64 K/UL ABSOLUTE LYMPHOCYTES (test c ode = 1067) 1.89 K/UL ABSOLUTE MONOCYTES (test cod e = 1068) 0.31 K/UL ABSOLUTE EOSINOPHILS (test c ode = 1040) 0.13 K/UL ABSOLUTE BASOPHILS (test cod e = 1069) 0.02 K/UL ABS IMMATURE GRANULOCYTES (t est code = 1020) 0.02 K/UL ABS NUCLEATED RBCS (test cod e = 45258) 0.00 K/UL CBC W/AUTO [id number] 00:00:00* Test Item Value Reference Range Interpretation Comme nts WBC (test code = 1001) 7.0 K/UL [...] = 1013) 0.3 % IMMATURE GRANULOCYTES (test code = 1036) 0.3 % NUCLEATED RBCS (test code = 1065) 0.0 /100WBC'S PLATELET COUNT (test code = 1015) 285 K/UL ABSOLUTE NEUTROPHILS (test c ode = 1066) 4.64 K/UL ABSOLUTE LYMPHOCYTES (test c ode = 1067) 1.89 K/UL ABSOLUTE MONOCYTES (test cod e = 1068) 0.31 K/UL ABSOLUTE EOSINOPHILS (test c ode = 1040) 0.13 K/UL ABSOLUTE BASOPHILS (test cod e = 1069) 0.02 K/UL ABS IMMATURE GRANULOCYTES (t est code = 1020) 0.02 K/UL ABS NUCLEATED RBCS (test cod e = 54725) 0.00 K/UL CBC W/AUTO [id number] 00:00:00* Test Item Value Reference Range Interpretation Comme nts WBC (test code = 1001) 7.0 K/UL [...] = 1013) 0.3 % IMMATURE GRANULOCYTES (test code = 1036) 0.3 % NUCLEATED RBCS (test code = 1065) 0.0 /100WBC'S PLATELET COUNT (test code = 1015) 285 K/UL ABSOLUTE NEUTROPHILS (test c ode = 1066) 4.64 K/UL ABSOLUTE LYMPHOCYTES (test c ode = 1067) 1.89 K/UL ABSOLUTE MONOCYTES (test cod e = 1068) 0.31 K/UL ABSOLUTE EOSINOPHILS (test c ode = 1040) 0.13 K/UL ABSOLUTE BASOPHILS (test cod e = 1069) 0.02 K/UL ABS IMMATURE GRANULOCYTES (t est code = 1020) 0.02 K/UL ABS NUCLEATED RBCS (test cod e = 48574) 0.00 K/UL COMPREHENSIVE METABOLIC [id number] 00:00:00* Test Item Value Reference Range Interpretation Comme nts GLUCOSE (test code = 2217) 76 MG/DL BUN (test code = 2208) 7 MG/DL CREATININE (test code = 2214) 0.80 MG/DL eGFR (2020 CKD-EPI) (test code = 83713) 104 ML/MIN/1.73 CALC BUN/CREAT (test code = 2235) 9 RATIO SODIUM (test code = 2231) 140 MEQ/L POTASSIUM (test code = 2228) 3.8 MEQ/L CHLORIDE (test code = 2215) 104 MEQ/L CARBON DIOXIDE (test code = 2206) 27 MEQ/L CALCIUM (test code = 2209) 9.3 MG/DL PROTEIN, TOTAL (test code = 2229) 6.9 G/DL ALBUMIN (test code = 2201) 4.0 G/DL CALC GLOBULIN (test code = 2240) 2.9 G/DL CALC A/G RATIO (test code = 2234) 1.4 RATIO BILIRUBIN, TOTAL (test code = 2207) 0.7 MG/DL ALKALINE PHOSPHATASE (test code = 2204) 57 U/L AST (test code = 2218) 12 U/L ALT (test code = 2219) 11 U/L COMPREHENSIVE METABOLIC [id number] 00:00:00* Test Item Value Reference Range Interpretation Comme nts GLUCOSE (test code = 2217) 76 MG/DL BUN (test code = 2208) 7 MG/DL CREATININE (test code = 2214) 0.80 MG/DL eGFR (2020 CKD-EPI) (test code = 00334) 104 ML/MIN/1.73 CALC BUN/CREAT (test code = 2235) 9 RATIO SODIUM (test code = 2231) 140 MEQ/L POTASSIUM (test code = 2228) 3.8 MEQ/L CHLORIDE (test code = 2215) 104 MEQ/L CARBON DIOXIDE (test code = 2206) 27 MEQ/L CALCIUM (test code = 2209) 9.3 MG/DL PROTEIN, TOTAL (test code = 2229) 6.9 G/DL ALBUMIN (test code = 2201) 4.0 G/DL CALC GLOBULIN (test code = 2240) 2.9 G/DL CALC A/G RATIO (test code = 2234) 1.4 RATIO BILIRUBIN, TOTAL (test code = 2207) 0.7 MG/DL ALKALINE PHOSPHATASE (test code = 2204) 57 U/L AST (test code = 2218) 12 U/L ALT (test code = 2219) 11 U/L HEMOGLOBIN [id number] 00:00:00* Test Item Value Reference Range Interpretation Comme nts HEMOGLOBIN A1c (test code = 50043) 5.0 % HEMOGLOBIN [id number] 00:00:00* Test Item Value Reference Range Interpretation Comme nts HEMOGLOBIN A1c (test code = 66062) 5.0 % HEMOGLOBIN [id number] 00:00:00* Test Item Value Reference Range Interpretation Comme nts HEMOGLOBIN A1c (test code = 76940) 5.0 % CBC W/AUTO [id number] 00:00:00* Test Item Value Reference Range Interpretation Comme nts WBC (test code = 1001) 7.3 K/UL [...] code = 1015) 331 K/UL CBC W/AUTO [id number] 00:00:00* Test Item Value Reference Range Interpretation Comme nts WBC (test code = 1001) 7.3 K/UL [...] code = 1015) 331 K/UL CBC W/AUTO [id number] 00:00:00* Test Item Value Reference Range Interpretation Comme nts WBC (test code = 1001) 7.3 K/UL [...] code = 1015) 331 K/UL CBC W/AUTO [id number] 00:00:00* Test Item Value Reference Range Interpretation Comme nts WBC (test code = 1001) 7.3 K/UL [...] code = 1015) 331 K/UL CBC W/AUTO [id number] 00:00:00* Test Item Value Reference Range Interpretation Comme nts WBC (test code = 1001) 7.3 K/UL [...] COUNT (test code = 1015) 331 K/UL [id number] 00:00:00* Test Item Value Reference Range Interpretation Comme nts TSH, THIRD GENERATION (test code = 2821) 0.740 UIU/ML [id number] 00:00:00* Test Item Value Reference Range Interpretation Comme nts TSH, THIRD GENERATION (test code = 2821) 0.740 UIU/ML [id number] 00:00:00* Test Item Value Reference Range Interpretation Comme nts TSH, THIRD GENERATION (test code = 2821) 0.740 UIU/ML COMPREHENSIVE METABOLIC [id number] 00:00:00* Test Item Value Reference Range Interpretation Comme nts GLUCOSE (test code = 2217) 81 MG/DL BUN (test code = 2208) 5 MG/DL CREATININE (test code = 2214) 0.73 MG/DL eGFR AMER. (test cod e = 64091) 134 ML/MIN/1.73 eGFR NON- AMER. (test code = 71470) 115 ML/MIN/1.73 CALC BUN/CREAT (test code = 2235) 7 RATIO SODIUM (test code = 2231) 140 MEQ/L POTASSIUM (test code = 2228) 3.9 MEQ/L CHLORIDE (test code = 2215) 105 MEQ/L CARBON DIOXIDE (test code = 2206) 21 MEQ/L CALCIUM (test code = 2209) 9.4 MG/DL PROTEIN, TOTAL (test code = 2229) 7.1 G/DL ALBUMIN (test code = 2201) 4.2 G/DL CALC GLOBULIN (test code = 2240) 2.9 G/DL CALC A/G RATIO (test code = 2234) 1.4 RATIO BILIRUBIN, TOTAL (test code = 2207) 0.7 MG/DL ALKALINE PHOSPHATASE (test code = 2204) 58 U/L AST (test code = 2218) 15 U/L ALT (test code = 2219) 10 U/L [id number] 00:00:00* Test Item Value Reference Range Interpretation Comme nts TSH, THIRD GENERATION (test code = 2821) 0.740 UIU/ML COMPREHENSIVE METABOLIC [id number] 00:00:00* Test Item Value Reference Range Interpretation Comme nts GLUCOSE (test code = 2217) 81 MG/DL BUN (test code = 2208) 5 MG/DL CREATININE (test code = 2214) 0.73 MG/DL eGFR AMER. (test cod e = 89801) 134 ML/MIN/1.73 eGFR NON- AMER. (test code = 32312) 115 ML/MIN/1.73 CALC BUN/CREAT (test code = 2235) 7 RATIO SODIUM (test code = 2231) 140 MEQ/L POTASSIUM (test code = 2228) 3.9 MEQ/L CHLORIDE (test code = 2215) 105 MEQ/L CARBON DIOXIDE (test code = 2206) 21 MEQ/L CALCIUM (test code = 2209) 9.4 MG/DL PROTEIN, TOTAL (test code = 2229) 7.1 G/DL ALBUMIN (test code = 2201) 4.2 G/DL CALC GLOBULIN (test code = 2240) 2.9 G/DL CALC A/G RATIO (test code = 2234) 1.4 RATIO BILIRUBIN, TOTAL (test code = 2207) 0.7 MG/DL ALKALINE PHOSPHATASE (test code = 2204) 58 U/L AST (test code = 2218) 15 U/L ALT (test code = 2219) 10 U/L HEMOGLOBIN [id number] 00:00:00* Test Item Value Reference Range Interpretation Comme nts HEMOGLOBIN A1c (test code = 91504) 4.8 % HEMOGLOBIN [id number] 00:00:00* Test Item Value Reference Range Interpretation Comme nts HEMOGLOBIN A1c (test code = 68923) 4.8 % HEMOGLOBIN [id number] 00:00:00* Test Item Value Reference Range Interpretation Comme nts HEMOGLOBIN A1c (test code = 35289) 4.8 % [id number] 00:00:00* Test Item Value Reference Range Interpretation Comme nts TSH, THIRD GENERATION (test code = 2821) 0.740 UIU/ML COMPREHENSIVE METABOLIC [id number] 00:00:00* Test Item Value Reference Range Interpretation Comme nts GLUCOSE (test code = 2217) 81 MG/DL BUN (test code = 2208) 5 MG/DL CREATININE (test code = 2214) 0.73 MG/DL eGFR AMER. (test cod e = 53242) 134 ML/MIN/1.73 eGFR NON- AMER. (test code = 18785) 115 ML/MIN/1.73 CALC BUN/CREAT (test code = 2235) 7 RATIO SODIUM (test code = 2231) 140 MEQ/L POTASSIUM (test code = 2228) 3.9 MEQ/L CHLORIDE (test code = 2215) 105 MEQ/L CARBON DIOXIDE (test code = 2206) 21 MEQ/L CALCIUM (test code = 2209) 9.4 MG/DL PROTEIN, TOTAL (test code = 2229) 7.1 G/DL ALBUMIN (test code = 2201) 4.2 G/DL CALC GLOBULIN (test code = 2240) 2.9 G/DL CALC A/G RATIO (test code = 2234) 1.4 RATIO BILIRUBIN, TOTAL (test code = 2207) 0.7 MG/DL ALKALINE PHOSPHATASE (test code = 2204) 58 U/L AST (test code = 2218) 15 U/L ALT (test code = 2219) 10 U/L CBC W/AUTO [id number] 00:00:00* Test Item Value Reference Range Interpretation Comme nts WBC (test code = 1001) 7.3 K/UL [...] (test code = 1015) 331 K/UL HEMOGLOBIN [id number] 00:00:00* Test Item Value Reference Range Interpretation Comme nts HEMOGLOBIN A1c (test code = 00001) 4.8 % CBC W/AUTO [id number] 00:00:00* Test Item Value Reference Range Interpretation Comme nts WBC (test code = 1001) 7.3 K/UL [...] code = 1015) 331 K/UL CBC W/AUTO [id number] 00:00:00* Test Item Value Reference Range Interpretation Comme nts WBC (test code = 1001) 7.3 K/UL [...] COUNT (test code = 1015) 331 K/UL [id number] 00:00:00* Test Item Value Reference Range Interpretation Comme nts TSH, THIRD GENERATION (test code = 2821) 0.740 UIU/ML [id number] 00:00:00* Test Item Value Reference Range Interpretation Comme nts TSH, THIRD GENERATION (test code = 2821) 0.740 UIU/ML [id number] 00:00:00* Test Item Value Reference Range Interpretation Comme nts TSH, THIRD GENERATION (test code = 2821) 0.740 UIU/ML COMPREHENSIVE METABOLIC [id number] 00:00:00* Test Item Value Reference Range Interpretation Comme nts GLUCOSE (test code = 2217) 81 MG/DL BUN (test code = 2208) 5 MG/DL CREATININE (test code = 2214) 0.73 MG/DL eGFR AMER. (test cod e = 88507) 134 ML/MIN/1.73 eGFR NON- AMER. (test code = 52572) 115 ML/MIN/1.73 CALC BUN/CREAT (test code = 2235) 7 RATIO SODIUM (test code = 2231) 140 MEQ/L POTASSIUM (test code = 2228) 3.9 MEQ/L CHLORIDE (test code = 2215) 105 MEQ/L CARBON DIOXIDE (test code = 2206) 21 MEQ/L CALCIUM (test code = 2209) 9.4 MG/DL PROTEIN, TOTAL (test code = 2229) 7.1 G/DL ALBUMIN (test code = 2201) 4.2 G/DL CALC GLOBULIN (test code = 2240) 2.9 G/DL CALC A/G RATIO (test code = 2234) 1.4 RATIO BILIRUBIN, TOTAL (test code = 2207) 0.7 MG/DL ALKALINE PHOSPHATASE (test code = 2204) 58 U/L AST (test code = 2218) 15 U/L ALT (test code = 2219) 10 U/L HEMOGLOBIN [id number] 00:00:00* Test Item Value Reference Range Interpretation Comme nts HEMOGLOBIN A1c (test code = 36873) 4.8 % COMPREHENSIVE METABOLIC [id number] 00:00:00* Test Item Value Reference Range Interpretation Comme nts GLUCOSE (test code = 2217) 81 MG/DL BUN (test code = 2208) 5 MG/DL CREATININE (test code = 2214) 0.73 MG/DL eGFR AMER. (test cod e = 69871) 134 ML/MIN/1.73 eGFR NON- AMER. (test code = 36723) 115 ML/MIN/1.73 CALC BUN/CREAT (test code = 2235) 7 RATIO SODIUM (test code = 2231) 140 MEQ/L POTASSIUM (test code = 2228) 3.9 MEQ/L CHLORIDE (test code = 2215) 105 MEQ/L CARBON DIOXIDE (test code = 2206) 21 MEQ/L CALCIUM (test code = 2209) 9.4 MG/DL PROTEIN, TOTAL (test code = 2229) 7.1 G/DL ALBUMIN (test code = 2201) 4.2 G/DL CALC GLOBULIN (test code = 2240) 2.9 G/DL CALC A/G RATIO (test code = 2234) 1.4 RATIO BILIRUBIN, TOTAL (test code = 2207) 0.7 MG/DL ALKALINE PHOSPHATASE (test code = 2204) 58 U/L AST (test code = 2218) 15 U/L ALT (test code = 2219) 10 U/L HEMOGLOBIN [id number] 00:00:00* Test Item Value Reference Range Interpretation Comme nts HEMOGLOBIN A1c (test code = 53825) 4.8 % HEMOGLOBIN [id number] 00:00:00* Test Item Value Reference Range Interpretation Comme nts HEMOGLOBIN A1c (test code = 39981) 4.8 % HEMOGLOBIN [id number] 00:00:00* Test Item Value Reference Range Interpretation Comme nts HEMOGLOBIN A1c (test code = 72737) 4.8 %
[2023-08-06 22:54] LABS: Specific Gravity 1.027 (1.005-1.030)
[2023-08-06 22:55] LABS: Specific Gravity 1.027 (1.005-1.030); Urine Bacteria Loaded /HPF (<20); Urine Bilirubin NEGATIVE (Negative); Urine Blood Negative (Negative); Urine Clarity Extremely Turbid (Clear); Urine Color Yellow (Yellow); Urine Glucose NEGATIVE (Negative); Urine Mucus 2+ /HPF (None Seen); Urine Protein TRACE (Negative); Urine RBC None Seen /HPF (None Seen); Urine Urobilinogen Normal (Normal); Urine pH 6.5 (5.0-7.0)
--- NOTE | 2023-08-07 00:02 | EDPHYS ---
Physician Documentation [facility] Name: Anisa Fernandes Age: 28 yrs Sex: Female : 1995 Arrival Date: 08/06/2023 Time: 22:21 Bed 11 Private MD: ED Physician Raul Whitley HPI: 08/06 22:35 This 28 yrs old Black Female presents to ER via Ambulatory with complaints of Cough, cp Congestion, Sore Throat, Pain With Urination. 22:35 The patient or guardian reports cough, that is intermittent. cp 22:35 Onset: The symptoms/episode began/occurred this morning. Associated signs and symptoms: cp Pertinent positives: nausea, sore throat, body aches, foul smelling urine, Pertinent negatives: chest pain, diarrhea, fever, vomiting, abdominal pain. 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 - Social history:: Smoking status: Patient denies any tobacco usage or history of. ROS: 22:35 Constitutional: Positive for body aches, Negative for fever, poor PO intake, cp 22:35 Eyes: Negative for injury, pain, redness, and discharge, cp 22:35 ENT: Positive for sore throat, Negative for drainage from ear(s), ear pain, difficulty swallowing, difficulty handling secretions, 22:35 Cardiovascular: Negative for chest pain, 22:35 Respiratory: Positive for cough, Negative for wheezing, 22:35 Abdomen/GI: Positive for nausea, Negative for abdominal pain, vomiting, diarrhea, constipation, 22:35 : Positive for foul smelling urine, 22:35 Neuro: Negative for altered mental status, headache, weakness, 22:35 All other systems are negative, Exam: 22:45 Constitutional: The patient appears in no acute distress, alert, awake, non-toxic, well cp developed, well nourished, 22:45 Head/Face: Normocephalic, atraumatic. cp 22:45 Eyes: Periorbital structures: appear normal, Conjunctiva: normal, no exudate, no injection, Sclera: no appreciated abnormality, Lids and lashes: appear normal, bilaterally, 22:45 ENT: External ear(s): are unremarkable, Ear canal(s): are normal, clear, TM's: bulging, is not appreciated, bilaterally, dullness, bilaterally, erythema, is not appreciated, bilaterally, Nose: is normal, Mouth: Lips: moist, Oral mucosa: moist, Posterior pharynx: Airway: no evidence of obstruction, patent, Tonsils: with erythema, no exudate, swelling, is not appreciated, erythema, that is mild, exudate, is not appreciated, 22:45 Neck: ROM/movement: is normal, is supple, no range of motions limitations, no meningismus, no nuchal rigidity, 22:45 Chest/axilla: Inspection: normal, 22:45 Cardiovascular: Rate: normal, Rhythm: regular, 22:45 Respiratory: the patient does not display signs of respiratory distress, Respirations: normal, no use of accessory muscles, no retractions, labored breathing, is not present, Breath sounds: decreased breath sounds, are not appreciated, stridor, is not appreciated, + upper airway congestion. wheezing: is not appreciated, 22:45 Abdomen/GI: Exam negative for discomfort, distension, guarding, Inspection: abdomen appears normal, 22:45 Back: CVA tenderness, is absent, Vital Signs: 22:29 BP 136 / 96; Pulse 80; Resp 18 S; Temp 97(TE); Pulse Ox 100% on R/A; Weight 83.91 kg as6 (R); Height 5 ft. 4 in. (R); Pain 6/10; 08/07 01:16 BP 129 / 88; Pulse 84; Resp 18 S; Pulse Ox 100% on R/A; lg3 08/06 22:29 Body Mass Index 31.75 (83.91 kg, 162.56 cm) as6 08/06 22:29 Pain Scale: Adult as6 MDM: 08/06 22:31 Patient medically screened. cp 23:00 Differential Diagnosis: Bronchitis Influenza Sinusitis Pharyngitis Otitis Media Viral cp Syndrome Pneumonia. 08/07 00:02 Data reviewed: vital signs, nurses notes, lab test result(s), and as a result, I will cp discharge patient. 00:02 I considered the following discharge prescriptions or medication management in the cp emergency department Medications were administered in the Emergency Department. See MAR. Counseling: I had a detailed discussion with the patient and/or guardian regarding the historical points, exam findings, and any diagnostic results supporting the discharge/admit diagnosis, lab results, to return to the emergency department if symptoms worsen or persist or if there are any questions or concerns that arise at home. Response to treatment: the patient's symptoms have mildly improved after treatment, and as a result, I will discharge patient. 08/06 22:31 Order name: COVID-19 SARS RT PCR; Complete Time: 23:56 cp 08/06 22:31 Order name: Influenza Screen (a \T\ B); Complete Time: 23:56 08/06 22:31 Order name: Strep; Complete Time: 23:34 08/06 23:34 Interpretation: Reviewed. 08/06 22:34 Order name: Urinalysis W/Microscopic; Complete Time: 23:10 08/06 23:10 Interpretation: Normal except: [facility] Extremely Turbid; UPROT TRACE; UBACT Loaded. 08/06 22:34 Order name: PREGU; Complete Time: 23:10 08/06 23:10 Interpretation: Reviewed. cp Administered Medications: 08/06 22:43 Drug: Tessalon Perle PO 200 mg PO once Route: PO; as6 23:50 Follow up: Response: No adverse reaction as6 08/07 01:15 Drug: Amoxicillin-Clavulanate PO 875 mg PO once Route: PO; lg3 01:15 Follow up: Response: No adverse reaction lg3 Disposition Summary: 08/07/23 00:02 Discharge Ordered Notes: Location: Home cp Problem: new cp Symptoms: have improved cp Condition: Stable cp Diagnosis - SARS-associated coronavirus as the cause of diseases classified elsewhere cp - Streptococcal pharyngitis cp - UTI/ Urinary tract infection, site not specified cp Followup: cp - With: Private Physician - When: 2 - 3 days - Reason: Worsening of condition Discharge Instructions: - Discharge Summary Sheet cp - Strep Throat, Adult cp - Urinary Tract Infection, Adult cp - Form - Excuse from Work, School, or Physical Activity cp - COVID-19 cp - How to Protect Yourself and Others - CDC (09/03/2021) cp - 10 Things You Can Do to Manage Your COVID-19 Symptoms at Home - [facility] (01/22/2021) cp - COVID-19: Quarantine and Isolation - [facility] (10/06/2021) cp - COVID-19: What to Do If You Are Sick - [facility] (09/28/2021) cp Forms: - Medication Reconciliation Form cp - Thank You Letter cp - Antibiotic Education cp - Prescription Opioid Use cp - Patient Portal Instructions cp - Leadership Thank You Letter cp Prescriptions: - Paxlovid 150-100 mg Oral Tablet, Dose Pack - take 1 dose pack ORAL route per package directions; 1 packet; Refills: 0, cp Product Selection Permitted - Bromfed DM 2-30-10 mg/5 mL Oral syrup - administer 10 milliliter ORAL route every 6-8 hours as needed for cold cp symptoms; 240 milliliter; Refills: 0, Product Selection Permitted - Augmentin 875-125 mg Oral Tablet - take 1 tablet ORAL route every 12 hours for 10 days; 20 tablet; Refills: 0, cp Product Selection Permitted - Ibuprofen 800 mg Oral Tablet - take 1 tablet ORAL route every 8 hours As needed take with food; 30 tablet; cp Refills: 0, Product Selection Permitted Signatures: Dispatcher [employer] EDMS Beck Moran PA PA cp Able, Lacie RN RN lg3 Donny Santiago RN RN as6 Corrections: (The following items were deleted from the chart) 08/08 00:12 08/07 22:35 This 28 yrs old Black Female presents to ER via Ambulatory with complaints cp of Cough, Congestion, Sore Throat, Pain With Urination. cp 08/08 00:12 08/07 22:35 The patient or guardian reports cough, that is intermittent, cp cp
--- NOTE | 2023-08-07 00:02 | ER ---
Nurse's Notes [facility] Name: Anisa Fernandes Age: 28 yrs Sex: Female : 1995 Arrival Date: 08/06/2023 Time: 22:21 Bed 11 Private MD: Diagnosis: SARS-associated coronavirus as the cause of diseases classified elsewhere;Streptococcal pharyngitis;UTI/ Urinary tract infection, site not specified Presentation: 08/06 22:29 Chief complaint: Patient states: "I feel sick" pt c/o sore throat, cough. Coronavirus as6 screen: At this time, the client does not indicate any symptoms associated with coronavirus-19. Ebola Screen: No symptoms or risks identified at this time. Initial Sepsis Screen: Does the patient meet any 2 criteria? No. Patient's initial sepsis screen is negative. Does the patient have a suspected source of infection? No. Patient's initial sepsis screen is negative. Risk Assessment: Do you want to hurt yourself or someone else? Patient reports no desire to harm self or others. Onset of symptoms was August 06, 2023. 22:29 Method Of Arrival: Ambulatory as6 22:29 Acuity: EDWIN 4 as6 Triage Assessment: 23:49 General: Appears uncomfortable, ill, Behavior is calm, cooperative. Pain: Complains of as6 pain in neck. EENT: Reports nasal congestion pain since sore throat. Neuro: Level of Consciousness is awake, alert, obeys commands, Oriented to person, place, time, situation. Cardiovascular: Capillary refill < 3 seconds Patient's skin is warm and dry. Respiratory: Reports cough that is Respiratory effort is even, unlabored, Respiratory pattern is regular, symmetrical. : Reports burning with urination. 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 - Social history:: Smoking status: Patient denies any tobacco usage or history of. Screenin:37 [facility] ED Fall Risk Assessment (Adult) Score/Fall Risk Level 0 - 2 = Low Risk. Abuse as6 screen: Denies threats or abuse. Denies injuries from another. Nutritional screening: No deficits noted. Tuberculosis screening: No symptoms or risk factors identified. Assessment: 23:50 General: see triage assessment . as6 08/07 01:15 Reassessment: Patient appears in no apparent distress at this time. No changes from lg3 previously documented assessment. Patient and/or family updated on plan of care and expected duration. Pain level reassessed. Patient is alert, oriented x 3, equal unlabored respirations, skin warm/dry/pink. Vital Signs: 08/06 22:29 BP 136 / 96; Pulse 80; Resp 18 S; Temp 97(TE); Pulse Ox 100% on R/A; Weight 83.91 kg as6 (R); Height 5 ft. 4 in. (R); Pain 12/17; 08/07 01:16 BP 129 / 88; Pulse 84; Resp 18 S; Pulse Ox 100% on R/A; lg3 08/06 22:29 Body Mass Index 31.75 (83.91 kg, 162.56 cm) as6 08/06 22:29 Pain Scale: Adult as6 ED Course: 08/06 22:25 Patient arrived in ED. jj6 22:26 Beck Moran PA is PHCP. cp 22:26 Raul Whitley MD is Attending Physician. cp 22:30 Triage completed. as6 22:31 Arm band placed on. as6 22:36 Strep Sent. as6 22:36 Influenza Screen (a \\T\\ B) Sent. as6 22:36 COVID-19 SARS RT PCR Sent. as6 22:37 Bed in low position. Call light in reach. as6 23:50 No provider procedures requiring assistance completed. Patient did not have IV access as6 during this emergency room visit. Administered Medications: 22:43 Drug: Tessalon Perle PO 200 mg PO once Route: PO; as6 23:50 Follow up: Response: No adverse reaction as6 08/07 01:15 Drug: Amoxicillin-Clavulanate PO 875 mg PO once Route: PO; lg3 01:15 Follow up: Response: No adverse reaction lg3 Medication: 08/06 22:37 VIS not applicable for this client. as6 Outcome: 23:50 Condition: stable as6 08/07 00:02 Discharge ordered by . sherlyn 01:16 Discharged to home ambulatory, lg3 01:16 Discharge instructions given to patient, Instructed on discharge instructions, follow up and referral plans. medication usage, Demonstrated understanding of instructions, follow-up care, medications, Prescriptions given X 1, 01:16 Patient left the ED. lg3 Signatures: Beck Moran PA PA cp Able, Lacie RN RN lg3 Dianne [id number] Donny Santiago RN RN as6
[2023-08-07 02:08] VITALS: BP 129/88; O2SAT 100
[2023-08-07 02:09] VITALS: TEMP 97
== END ==
LOC: ER 22:21
DX: U07.1 COVID-19 (principal); J02.0 Streptococcal pharyngitis; N39.0 Urinary tract infection, site not specified
CPT/HCPCS: 81001; 81025; 87081; 87635; 87804